=== PATIENT | female | born 1970 | race Caucasian/White ===

== ENCOUNTER → 2016-08-24 | Outpatient (CLI) | payer BC ==
--- NOTE | 2016-08-25 09:07 | MM ---
Reason for exam: screening (asymptomatic). Last mammogram was performed 1 year ago. History: Patient is nulliparous. Family history of premenopausal breast cancer in sister at age 40. Reductions of both breasts, 2005. Took hormonal contraceptives for 5 years beginning at age 19. Physical Findings: A clinical breast exam by your physician is recommended on an annual basis and results should be correlated with mammographic findings. MG Screening Mammo w CAD Bilateral CC and MLO view(s) were taken. Prior study comparison: August 14, 2015, bilateral MG screening mammo w CAD. January 14, 2014, mammogram, performed at [facility]. There are scattered fibroglandular densities. Finding: There are typically benign round calcifications in the left breast. There is no discrete abnormality. ASSESSMENT: Benign, BI-RAD 2 RECOMMENDATION: Routine screening mammogram of both breasts in 1 year.
== END | disposition home or self-care (01) ==
LOC: RADMAMWWP 07:49
PROVIDERS: ATTEND Family Medicine
DX: Z12.31 Encounter for screening mammogram for malignant neoplasm of breast (principal)

== ENCOUNTER 2018-06-24 00:16 | Inpatient (IN) | payer BC ==
[2018-06-24] MEDS ORDERED: HEPARIN SODIUM,PORCINE 5,000 UNIT/ML 1 ML VIAL IV STA (00:24)
[2018-06-24] MEDS ORDERED: SODIUM CHLORIDE 0.9% 1,000 ML IV STA (00:24)
[2018-06-24] MEDS ORDERED: NITROGLYCERIN OINT 1 INCH/GM PACKET TOPICAL STA (00:24)
--- NOTE | 2018-06-24 00:27 | ED ---
General Adult HPI - General Stated complaint: Chest Pain - Related Data Allergies Allergy/AdvReac Type Severity Reaction Status Date / Time No Known Allergies Allergy Verified 06/24/18 00:29 Review of Systems ROS Statement: Those systems with pertinent positive or pertinent negative responses have been documented in the HPI. ROS Other: All systems not noted in ROS Statement are negative. Course Vital Signs 06/24/18 06/24/18 06/24/18 00:17 00:30 00:45 Temperature 97.5 F L Pulse Rate 53 L 59 L 55 L Respiratory 16 18 20 Rate Blood Pressure 115/74 120/75 107/72 O2 Sat by Pulse 94 L 96 96 Oximetry Medical Decision Making - Medical Decision Making Dictation was produced using [employer] dictation software. please excuse any grammatical, word or spelling errors. Chief Complaint: 47-year-old female presents with chief complaint of chest pain. History of Present Illness: Patient is a 47-year-old female brought in by EMS for chest pain. Prehospital EKG showed findings of ST segment elevation MN. Patient has no cardiac history. She has however reports strong family history. Patient reports that her symptoms began this afternoon. One hour prior to arrival patient's symptoms acutely worsen. She does report diaphoresis, nausea and radiation of pain to the shoulders and jaw. Patient denies any neurologic deficit. The ROS documented in this emergency department record has been reviewed and confirmed by me. Those systems with pertinent positive or negative responses have been documented in the HPI. All other systems are other negative and/or noncontributory. PHYSICAL EXAM: General Impression: Alert and oriented x3, diaphoretic, acute distress secondary to pain HEENT: Normocephalic atraumatic, extra-ocular movements intact, pupils equal and reactive to light bilaterally, mucous membranes moist. Cardiovascular: Heart regular rate and rhythm, S1&S2 audible, no murmurs, rubs or gallops Chest: Lungs clear to auscultation bilaterally, no rhonchi, no wheeze, no rales Abdomen: Bowel sounds present, abdomen soft, non-tender, non-distended, no organomegaly Musculoskeletal: Pulses present and equal in all extremities, no peripheral edema Motor: Power 5/5 bilaterally, no focal deficits noted Neurological: CN II-XII grossly intact, no focal motor or sensory deficits noted Skin: Intact with no visualized rashes Psych: Normal affect and mood ED course:-year-old female presents with clinical presentation consistent with STEMI. Prehospital EKG showed ST elevations in the high lateral leads with reciprocal changes in the inferior leads. Patient given aspirin by prehospital providers. She is also given nitroglycerin. STEMI paged upon patient arrival. Discussed patient case with Dr. Mayo. Patient given heparin bolus and started on heparin drip. Patient disposition to laboratory technologist for cardiac catheterization. EKG interpretation: Ventricular rate 57, MA interval 162, QRS 74, QTC 422. No MA prolongation, no QTC prolongation, consistent with ST segment elevation MN. - Lab Data Result diagrams: 06/24/18 00:30 06/24/18 00:30 Lab Results 06/24/18 06/24/18 06/24/18 Range/Units 00:30 00:30 00:30 WBC 13.6 H (3.8-10.6) k/uL RBC 5.05 (3.80-5.40) m/uL Hgb 14.6 (11.4-16.0) gm/dL Hct 45.0 (34.0-46.0) % MCV 89.1 (80.0-100.0) fL MCH 28.9 (25.0-35.0) pg MCHC 32.4 (31.0-37.0) g/dL RDW 13.9 (11.5-15.5) % Plt Count 187 (150-450) k/uL Sodium 138 (137-145) mmol/L Potassium 4.5 (3.5-5.1) mmol/L Chloride 107 (98-107) mmol/L Carbon Dioxide 24 (22-30) mmol/L Anion Gap 7 mmol/L BUN 16 (7-17) mg/dL Creatinine 0.61 (0.52-1.04) mg/dL Est GFR (CKD-EPI)AfAm >90 (>60 ml/min/1.73 sqM) Est GFR (CKD-EPI)NonAf >90 (>60 ml/min/1.73 sqM) Glucose 139 H (74-99) mg/dL POC Glucose (mg/dL) 134 H (75-99) mg/dL POC Glu Paint Tinter ID Larry Schafer Calcium 9.4 (8.4-10.2) mg/dL Total Bilirubin 0.3 (0.2-1.3) mg/dL AST 21 (14-36) U/L ALT 31 (9-52) U/L Alkaline Phosphatase 54 (38-126) U/L Total Creatine Kinase (30-135) U/L Total Protein 7.1 (6.3-8.2) g/dL Albumin 4.1 (3.5-5.0) g/dL 06/24/18 Range/Units 00:30 WBC (3.8-10.6) k/uL RBC (3.80-5.40) m/uL Hgb (11.4-16.0) gm/dL Hct (34.0-46.0) % MCV (80.0-100.0) fL MCH (25.0-35.0) pg MCHC (31.0-37.0) g/dL RDW (11.5-15.5) % Plt Count (150-450) k/uL Sodium (137-145) mmol/L Potassium (3.5-5.1) mmol/L Chloride (98-107) mmol/L Carbon Dioxide (22-30) mmol/L Anion Gap mmol/L BUN (7-17) mg/dL Creatinine (0.52-1.04) mg/dL Est GFR (CKD-EPI)AfAm (>60 ml/min/1.73 sqM) Est GFR (CKD-EPI)NonAf (>60 ml/min/1.73 sqM) Glucose (74-99) mg/dL POC Glucose (mg/dL) (75-99) mg/dL POC Glu Paint Tinter ID Calcium (8.4-10.2) mg/dL Total Bilirubin (0.2-1.3) mg/dL AST (14-36) U/L ALT (9-52) U/L Alkaline Phosphatase (38-126) U/L Total Creatine Kinase 49 (30-135) U/L Total Protein (6.3-8.2) g/dL Albumin (3.5-5.0) g/dL Disposition Clinical Impression: ST elevation myocardial infarction (STEMI) Disposition: ADMITTED IP TO THIS HOSP Condition: Critical Referrals: Juan Carlos Bliss MD [Primary Care Provider] - 1-2 days Decision Time: 01:12
[2018-06-24] MEDS ORDERED: HEPARIN SOD,PORK IN 0.45% NACL 25,000 UNIT in 0.45% NACL 1 250ML.BAG IV SCH (00:30)
[2018-06-24 00:41] LABS: Glucose,Whole Blood 134 mg/dL (75-99)
[2018-06-24 00:46] LABS: HGB 14.6 gm/dL (11.4-16.0); MCH 28.9 pg (25.0-35.0); MCHC 32.4 g/dL (31.0-37.0); MCV 89.1 fL (80.0-100.0); Mean Platelet Volume 7.2; Platelet Count 187 k/uL (150-450); RBC 5.05 m/uL (3.80-5.40); RDW 13.9 % (11.5-15.5); WBC 13.6 k/uL (3.8-10.6)
[2018-06-24 00:50] LABS: ALT 31 U/L (9-52); AST 21 U/L (14-36); Albumin 4.1 g/dL (3.5-5.0); Alkaline Phosphatase 54 U/L (38-126); Anion Gap 7 mmol/L; Blood Urea Nitrogen 16 mg/dL (7-17); Calcium 9.4 mg/dL (8.4-10.2); Carbon Dioxide 24 mmol/L (22-30); Chloride 107 mmol/L (98-107); Glucose 139 mg/dL (74-99); Potassium 4.5 mmol/L (3.5-5.1); Sodium 138 mmol/L (137-145); Total Bilirubin 0.3 mg/dL (0.2-1.3); Total Protein 7.1 g/dL (6.3-8.2)
[2018-06-24] MEDS ORDERED: LIDOCAINE 1% INJ 10MG/ML (20 ML MDV) ONE ×3 (01:02→13:34)
[2018-06-24] MEDS ORDERED: fentaNYL (PF) 50 MCG/ML 2 ML AMP ONE (01:02)
--- NOTE | 2018-06-24 01:04 | XR ---
EXAMINATION TYPE: XR chest 1V DATE OF EXAM: 06/24/2018 COMPARISON: NONE HISTORY: Chest pain TECHNIQUE: Single frontal view of the chest is obtained. FINDINGS: There is no heart failure nor confluent pneumonic infiltrate. Costophrenic angles are manuel r. There is slight coarsening of the lung markings. There is no pleural effusion. IMPRESSION: Minimal fibrotic changes. Normal heart. No heart failure.
[2018-06-24] MEDS ORDERED: IV FLUID CONTINUATION 950 ML IV ONE ×2 (01:05→08:05)
[2018-06-24] MEDS ORDERED: NALOXONE 0.4 MG/ML 1 ML VIAL IV PRN ×3 (01:10→01:27)
[2018-06-24] MEDS ORDERED: MIDAZOLAM 2 MG/2 ML VIAL IVP ONE ×2 (01:14→13:51)
[2018-06-24 01:16] LABS: Eosinophils # (M) 0.68 k/uL (0-0.7); Lymphocytes # (M) 4.76 k/uL (1.0-4.8); Monocytes # (M) 0.27 k/uL (0-1.0); Neutrophils # (M) 7.89 k/uL (1.3-7.7); Neutrophils % (M) 58 %; Nucleated Red Blood Cells 0 /100 WBC (0-0); Total Cells Counted 100
[2018-06-24] MEDS ORDERED: LIDOCAINE 1% INJ 10MG/ML (20 ML MDV) SQ ONE ×2 (01:16→13:51)
[2018-06-24 01:17] LABS: Creatine Kinase MB 0.5 ng/mL (0.0-2.4)
[2018-06-24] MEDS: fentaNYL (PF) 50 MCG/ML 2 ML AMP IVP ONE ×2 (01:20→01:39)
[2018-06-24 01:24] LABS: Troponin I 0.037 ng/mL (0.000-0.034)
[2018-06-24] MEDS ORDERED: BIVALIRUDIN BOLUS 250 MG/50 ML IV ONE (01:28)
[2018-06-24] MEDS ORDERED: BIVALIRUDIN 250 MG in SODIUM CHLORIDE 0.9% 50 ML IV ONE ×2 (01:29→02:22)
[2018-06-24] MEDS: NITROGLYCERIN 1000MCG/10ML SYRINGE INTRACORON ONE ×2 (01:40→02:27)
[2018-06-24] MEDS ORDERED: TICAGRELOR 90 MG TAB PO ONE (01:41)
[2018-06-24] MEDS ORDERED: TICAGRELOR 90 MG TAB ONE (01:41)
[2018-06-24] MEDS ORDERED: IOPAMIDOL-370 125ML BTL INJ ONE ×3 (01:54→14:05)
[2018-06-24] MEDS ORDERED: HYDROmorphone 2 MG/ML 1 ML SYRINGE IVP ONE (02:08)
[2018-06-24] MEDS ORDERED: IOPAMIDOL-370 100ML BTL INJ ONE (02:35)
[2018-06-24] MEDS ORDERED: MAG HYDROX/AL HYDROX/SIMETH 30 ML CUP PO PRN ×2 (02:40→08:55)
[2018-06-24] MEDS ORDERED: RX INFO: IV CONTRAST WAS GIVEN 1 EACH MISC MISCELLANE PRN ×3 (02:40→14:09)
[2018-06-24] MEDS ORDERED: ATROPINE SULFATE 0.1 MG/ML 10ML SYRINGE IV PRN ×2 (02:40→08:55)
[2018-06-24] MEDS ORDERED: ZOLPIDEM 5 MG TAB PO PRN ×2 (02:40→08:55)
[2018-06-24] MEDS ORDERED: SODIUM CHLORIDE 0.9% 1,000 ML IV SCH ×3 (02:45→14:15)
--- NOTE | 2018-06-24 02:48 | P.CRDCN ---
History of Present Illness Consult date: 06/24/18 Chief complaint: Chest pain History of present illness: This is a pleasant 47-year-old female patient with prior history of smoking and very significant family history of coronary artery disease who presented to the emergency room complaining of chest discomfort. The patient was in her usual state of health until earlier today when she started experiencing discomfort in the chest as a pressure across her chest with radiation to the lower neck as well as to the jaw. No associated symptoms of shortness of breath. No dizziness or lightheadedness. And no syncope. In the ER, the EKG showed sinus rhythm with very subtle ST segment elevation in the anterolateral leads. Because of that and because of the ongoing chest discomfort an emergent heart catheterization was advised. It did show severe disease involving the mid LAD by the bifurcation of a large diagonal branch with a very complex lesion. The patient underwent successful stenting of both the LAD and diagonal with a good angiographic results by the end and without any complication with ERICK 3 flow. By the end of the procedure, the patient was chest pain-free. The door to balloon was 81 minutes. The procedure was performed from the right groin. In terms of past medical history, the patient does not have diabetes or hypertension or dyslipidemia. She is to smoke but she quit smoking about 3 years ago. She does have a very significant family history of coronary artery disease with her parents as well as her brother who was diagnosed with coronary artery disease exactly at her age at 47-year-old. Past Medical History Past Medical History: No Reported History History of Any Multi-Drug Resistant Organisms: None Reported Past Surgical History: No Surgical Hx Reported Past Psychological History: Depression Smoking Status: Former smoker Past Alcohol Use History: None Reported Past Drug Use History: None Reported Medications and Allergies Allergies Allergy/AdvReac Type Severity Reaction Status Date / Time No Known Allergies Allergy Verified 06/24/18 00:29 Physical Exam Vitals: Vital Signs Temp Pulse Resp BP Pulse Ox 06/24/18 00:45 55 L 20 107/72 96 06/24/18 00:30 59 L 18 120/75 96 06/24/18 00:17 97.5 F L 53 L 16 115/74 94 L Intake and Output 06/23/18 06/23/18 06/24/18 14:59 22:59 06:59 Intake Total 450 Balance 450 Intake: IV 450 Other: Weight 90.718 kg - Constitutional General appearance: no acute distress - Respiratory Respiratory: bilateral: CTA - Cardiovascular Rhythm: regular Heart sounds: normal: S1, S2 Results 06/24/18 00:30 06/24/18 00:30 Cardiac Enzymes 06/24/18 06/24/18 Range/Units 00:30 00:30 AST 21 (14-36) U/L CK-MB (CK-2) 0.5 (0.0-2.4) ng/mL Troponin I 0.037 H* (0.000-0.034) ng/mL CBC 06/24/18 Range/Units 00:30 WBC 13.6 H (3.8-10.6) k/uL RBC 5.05 (3.80-5.40) m/uL Hgb 14.6 (11.4-16.0) gm/dL Hct 45.0 (34.0-46.0) % Plt Count 187 (150-450) k/uL Comprehensive Metabolic Panel 06/24/18 Range/Units 00:30 Sodium 138 (137-145) mmol/L Potassium 4.5 (3.5-5.1) mmol/L Chloride 107 (98-107) mmol/L Carbon Dioxide 24 (22-30) mmol/L BUN 16 (7-17) mg/dL Creatinine 0.61 (0.52-1.04) mg/dL Glucose 139 H (74-99) mg/dL Calcium 9.4 (8.4-10.2) mg/dL AST 21 (14-36) U/L ALT 31 (9-52) U/L Alkaline Phosphatase 54 (38-126) U/L Total Protein 7.1 (6.3-8.2) g/dL Albumin 4.1 (3.5-5.0) g/dL Current Medications Generic Name Dose Route Start Last Admin Trade Name Freq PRN Reason Stop Dose Admin Al Hydroxide/Mg Hydroxide 30 ml 06/24/18 02:40 Maalox PO Q4HR PRN Heartburn Aspirin 81 mg 06/24/18 09:00 Aspirin PO DAILY MICK Atorvastatin Calcium 80 mg 06/24/18 21:00 Lipitor PO HS MICK Atropine Sulfate 0.5 mg 06/24/18 02:40 Atropine IV ONCE PRN Symptomatic Bradycardia Heparin Sodium/Sodium Chloride 250 mls @ 9.97 mls/hr 06/24/18 00:30 06/24/18 00:35 25,000 unit/ Sodium Chloride IV 11 units/kg/hr .Q24H MICK 9.97 mls/hr Administration Protocol 11 UNITS/KG/HR Sodium Chloride 1,000 mls @ 100 mls/hr 06/24/18 00:24 06/24/18 00:32 Saline 0.9% IV 06/24/18 10:23 100 mls/hr .Q10H STA Administration Sodium Chloride 1,000 mls @ 100 mls/hr 06/24/18 02:45 Saline 0.9% IV 06/24/18 08:46 .Q10H IMCK Miscellaneous Information 1 each 06/24/18 02:40 Rx Info: Iv Contrast Was Given MISCELLANE 06/26/18 02:40 DAILY PRN Per Protocol Naloxone HCl 0.2 mg 06/24/18 01:18 Narcan IV Q2M PRN Opioid Reversal Nitroglycerin 0.4 mg 06/24/18 02:40 Nitrostat SUBLINGUAL Q5M PRN Chest Pain Zolpidem Tartrate 5 mg 06/24/18 02:40 Ambien PO HS PRN Insomnia Intake and Output 06/23/18 06/23/18 06/24/18 14:59 22:59 06:59 Intake Total 450 Balance 450 Intake: IV 450 Other: Weight 90.718 kg Patient Weight 06/24/18 06:59 Weight 90.718 kg 06/24/18 00:30 06/24/18 00:30 Assessment and Plan Assessment: Assessment #[address] segment elevation myocardial infarction #2 significant family history of coronary artery disease #3 prior history of smoking Plan #1 the patient is status post PCI and stenting of the LAD as well as first diagonal branch #2 dual antiplatelet therapy #3 high intensity statin #4 hold on beta jamila at this point in view of the baseline bradycardia #5 an echocardiogram to assess the LV function #6 follow-up with the patient. Thank you for allowing us participate in her care and we'll continue following up with the patient
[2018-06-24 03:01] LABS: Glucose,Whole Blood 114 mg/dL (75-99)
[2018-06-24] MEDS: NITROGLYCERIN SL TABS 0.4 MG TAB SUBLINGUAL PRN ×2 (06:29→06:35)
[2018-06-24] MEDS ORDERED: HYDROmorphone 0.5 MG/0.5 ML SYRINGE IVP STA (06:45)
[2018-06-24] MEDS: NITROGLYCERIN-D5W PMX 50 MG in DEXTROSE/WATER 1 250ML.BAG IV SCH (07:10)
[2018-06-24] MEDS ORDERED: IV FLUID CONTINUATION 1,000 ML IV ONE (08:05)
[2018-06-24] MEDS ORDERED: LIDOCAINE 1% (PF) 10MG/ML VIAL SQ ONE (08:06)
[2018-06-24] MEDS ORDERED: HEPARIN SODIUM 1,000 UN/ML (10ML VL) ONE ×2 (08:06→13:36)
[2018-06-24] MEDS: HYDROmorphone 2 MG/ML 1 ML SYRINGE IVP ONE ×2 (08:10→08:32)
[2018-06-24] MEDS: TIROFIBAN BOLUS 12.5MG/250 ML BAG IV ONE ×2 (08:14→08:49)
[2018-06-24] MEDS ORDERED: TIROFIBAN 12.5MG-250ML NS 250 ML IV ONE (08:15)
[2018-06-24] MEDS: niCARdipine Syringe (1,000 mcg/10 mL) INTRACORON ONE ×2 (08:23→08:38)
[2018-06-24] MEDS ORDERED: NITROGLYCERIN 1000MCG/10ML SYRINGE INTRACORON ONE (08:39)
[2018-06-24] MEDS ORDERED: PRASUGREL 10 MG TAB ONE (08:42)
[2018-06-24] MEDS ORDERED: PRASUGREL 10 MG TAB PO ONE (08:46)
[2018-06-24] MEDS ORDERED: NITROGLYCERIN SL TABS 0.4 MG TAB SUBLINGUAL PRN (08:55)
[2018-06-24] MEDS ORDERED: ASPIRIN 81 MG PO SCH (09:00)
[2018-06-24 09:25] LABS: HCT 40.8 % (34.0-46.0); HGB 13.5 gm/dL (11.4-16.0); MCH 30.1 pg (25.0-35.0); MCV 91.1 fL (80.0-100.0); Platelet Count 315 k/uL (150-450); RBC 4.47 m/uL (3.80-5.40); RDW 13.9 % (11.5-15.5); WBC 20.8 k/uL (3.8-10.6)
[2018-06-24 09:35] LABS: Anion Gap 6 mmol/L; Blood Urea Nitrogen 13 mg/dL (7-17); Calcium 8.5 mg/dL (8.4-10.2); Carbon Dioxide 22 mmol/L (22-30); Chloride 110 mmol/L (98-107); Glucose 120 mg/dL (74-99); Potassium 4.2 mmol/L (3.5-5.1); Sodium 138 mmol/L (137-145)
--- NOTE | 2018-06-24 09:41 | CC ---
CARDIAC CATHETERIZATION REPORT CARDIAC CATHETERIZATION AND PERCUTANEOUS CORONARY INTERVENTION: DATE OF SERVICE: June 24, 2018 PERFORMING PHYSICIAN: Hector Houser M.D., agitator operator. PROCEDURE PERFORMED: 1. Selective right and left coronary angiogram. 2. Successful stenting of the left anterior descending artery using a 2.75 x 28 mm Xience drug-eluting stent with good angiographic results. 3. Successful stenting of the first diagonal branch of the LAD using 2.75 x 15 mm Xience drug-eluting stent with good angiographic results. 4. Left heart catheterization. INDICATION: This is a pleasant 47-year-old female patient with no significant past medical history, but prior history of smoking and very significant family history of coronary artery disease, who presented to the emergency room with chest discomfort and was diagnosed with acute anterolateral ST-elevation myocardial infarction. Because of that, a heart catheterization emergently was advised. APPROACH: Right common femoral artery. COMPLICATION: None. LEVEL OF SEDATION: Moderate with sedation length of 83 minutes. the balloon was 81 minutes. PROCEDURE DESCRIPTION: After obtaining an informed consent, the patient was brought to cardiac labor contract analyst. The right common femoral artery was cannulated using micropuncture technique and a micropuncture wire passed easily. Then I did place a 6-Nepali sheath in the right radial artery in the right common femoral artery. At that point, I did selective right and left coronary angiogram. Right coronary angiogram was performed using JR4 catheter and left coronary angiogram was performed using JL4 guide. I did intervene on both the LAD and diagonal branch of the LAD. Please see a separate paragraph for that. After that I did left heart catheterization using 6-Nepali pigtail catheter. The procedure was completed without any complication. SELECTIVE CORONARY ANGIOGRAM: 1. The right coronary artery is a large caliber vessel and it is a dominant vessel. The proximal RCA appeared to be angiographically normal. The mid RCA has mild disease only and RCA distally has mild disease only and bifurcates into PDA and PLV branches, both appeared to be angiographically normal. 2. The left main is angiographically normal. It bifurcates into left circumflex and left anterior descending artery. 3. The left circumflex is a large caliber vessel. It is a nondominant vessel. The proximal left circumflex appeared to be normal with the mid circumflex is normal and gives rise into a large diagonal branch which appeared to be angiographically normal. The left circumflex continues after that as a moderate caliber vessel in the AV groove. 4. The LAD: The proximal LAD has mild disease only. The mid LAD just distal to the bifurcation of a large diagonal branch appeared to have a lesion in the range of 80%-90%. The LAD distally appeared to be normal. The first diagonal branch is a large diagonal branch which has an ostial lesion in the range of 80-90 percent as well. HEMODYNAMICS: The left ventricular end-diastolic pressure was 8-12 mmHg without gradient across aortic valve. PCI OF THE LAD AND DIAGONAL: Anticoagulation was initiated using Angiomax. The left main was engaged using JL4 guiding catheter. I did wire both the LAD as well as 1st diagonal branch of the LAD. The LAD was wired using a run-through wire and the first diagonal branch was wired using a whisper wire. After that, I did balloon angioplasty of both the LAD and diagonal. Both were ballooned using 2.5 mm balloon. After that, I deployed in the LAD, a 2.75 x 28 mm Xience drug-eluting stent where the stent was positioned under fluoroscopy guidance and deployed just by the bifurcation of the first diagonal branch, proximally. The stent was deployed under 14 atmospheres for 30 seconds. The following angiogram showed good angiographic results. After that, I did pull the wire from the diagonal branch, 1st diagonal branch of the LAD and I rewired the diagonal again through the stent struts of the LAD. I did, after that, I deployed the stent in the diagonal using 2.75 x 15 mm Xience drug-eluting stent where the stent again was positioned under fluoroscopy guidance and deployed under its nominal pressure. I decided after that to post dilate the LAD. I did pull the wire then I did post dilate the stent in the LAD using 3 0 x 15 mm NC balloon which was inflated under 16 atmospheres for 20 seconds. The following and the final angiogram showed good angiographic results in both the LAD and diagonal. The procedure was completed without any complication. CONCLUSION: 1. Acute anterolateral ST-elevation myocardial infarction. 2. Severe disease involving the mid LAD by the bifurcation of a large diagonal branch with a complex lesion. 3. Successful stenting of both the mid LAD and first diagonal branch using 2 drug- eluting stents with good angiographic results and without any complication. POSTPROCEDURE MANAGEMENT: 1. Dual anti-platelet therapy. 2. Risk factor modifications. 3. Follow up with the patient. MMODL / IJN: [id number] /
--- NOTE | 2018-06-24 09:49 | LTR ---
DATE OF SERVICE: June 24, [address] Bliss: Ms. Tori Su presented to the emergency room at [facility] with chest discomfort and was diagnosed with acute anterior ST-elevation myocardial infarction. She underwent an emergent heart catheterization and stenting of the LAD as well as 1st diagonal branch of the LAD. The procedure was completed with good angiographic results by the end and without any complication. Thank you for allowing us to participate in her care and please do not hesitate to call if you have any questions or concerns. Sincerely, MMODL / IJN: [id number] /
--- NOTE | 2018-06-24 10:25 | P.HPIM ---
History of Present Illness Chief complaint Chest pain History of present illness The patient is a 47-year-old female who has history family history of heart disease and also history of smoking and hypercholesterolemia who presented yesterday evening with left chest pain. The pain was upper chest which radiated to the neck and shoulders and was somewhat intermittent earlier in the day but later yesterday evening it became more severe and EMS was called to bring patient to the emergency room here at [facility]. Patient subsequently was taken to the cardiac Credit Collector and has undergone emergent stenting of the left anterior descending along with the first diagonal branch of the LAD. Patient is presently in the intensive care unit. She is not having at this point further definitive chest pain. No nausea, vomiting or shortness of breath at this time. Past medical history The patient has hyperlipidemia for which she has been recently working on lifestyle changes. Restless leg syndrome Positive smoking history Lumbago with right-sided sciatica Obesity Chronic depression Insomnia ADD No history of myocardial infarction, diabetes, hypertension or stroke. Medications Multiple vitamin daily Cymbalta 60 mg daily Xanax 0.5 mg at at bedtime Acetaminophen twice a day as needed for pain. No known ALLERGIES Review of systems Negative for headache or visual disturbances. No nausea or vomiting. No abdominal pain. No urinary or bowel symptoms. No hematochezia. No edema. No new neurological changes. Chest pain as mentioned in history of present illness. Family history History of stroke with her mother along with coronary artery disease with her mother, brother and father. Father and brother have hypertension. Mother has diabetes. Sister has history of breast cancer. Social history Positive for smoking history. No history of excessive alcohol usage. Physical examination Patient presently in bed in the intensive care unit. Blood pressure 130/72 with a pulse of 65 and respirations 15. She is 96% saturated on 2 L and is afebrile. Head and neck exam unremarkable. Extraocular movements intact. Neck supple. No adenopathy or thyromegaly or bruits detected. Breast and pelvic exam deferred. Lungs clear to auscultation. Heart tones were regular without murmurs. Abdomen is soft and nontender without rebound, guarding or masses. No edema. Neurologically she is alert and oriented. No cranial nerves peripheral nerve deficits noted. Laboratory White count is elevated at 13 and 20,000. Hemoglobin stable at 13.5. No blood sugar somewhat borderline at 120. Sodium 138 with potassium 4.2 and a CO2 content of 22. BUN was 16 with a creatinine 0.53 GFR greater than 90. CK was normal at 49 and troponin elevated at 0.037. Albumin 4.1. EKG shows ST segment elevation laterally. T-wave inversions inferiorly. Consistent with acute myocardial infarction. Chest x-ray showed minimal fibrotic changes but no acute changes noted. Impression Acute ST segment elevated myocardial infarction. Status post angioplasty and stenting of the LAD and first marginal branch on an emergent basis. Hyperlipidemia Positive family history for coronary artery disease Positive smoking history Other past medical history as stated above. Plans Patient has been seen and evaluated by cardiology and has undergone intervention as described above. She is presently on atorvastatin and antiplatelet agents. She remains in the intensive care unit at this time. We'll await further recommendations from cardiology. Discussed with patient the need for risk factor modification once again with weight loss, smoking cessation and treatment of cholesterol. Statin medication. Past Medical History Past Medical History: No Reported History History of Any Multi-Drug Resistant Organisms: None Reported Past Surgical History: No Surgical Hx Reported Past Psychological History: Depression Smoking Status: Former smoker Past Alcohol Use History: None Reported Past Drug Use History: None Reported Medications and Allergies Home Medications Medication Instructions Recorded Confirmed Type ALPRAZolam [Xanax] 0.5 mg PO HS 06/24/18 06/24/18 History Acetaminophen [Tylenol 8 Hour] 650 mg PO BID 06/24/18 06/24/18 History DULoxetine HCL [Cymbalta] 60 mg PO DAILY 06/24/18 06/24/18 History Multivitamins, Thera [Multivitamin 1 tab PO DAILY 06/24/18 06/24/18 History (formulary)] Allergies Allergy/AdvReac Type Severity Reaction Status Date / Time No Known Allergies Allergy Verified 06/24/18 09:42 Physical Exam Vitals: Vital Signs Temp Pulse Resp BP Pulse Ox 06/24/18 06:00 65 15 134/75 96 06/24/18 05:30 64 13 97 06/24/18 05:00 66 15 130/72 96 06/24/18 04:30 62 14 129/74 96 06/24/18 04:00 97.8 F 64 15 129/74 95 06/24/18 03:40 58 L 13 96 06/24/18 03:20 60 12 128/72 95 06/24/18 01:00 107/72 06/24/18 00:45 55 L 20 107/72 96 06/24/18 00:40 120/75 95 06/24/18 00:30 59 L 18 120/75 96 06/24/18 00:28 115/74 06/24/18 00:17 97.5 F L 53 L 16 115/74 94 L Intake and Output 06/23/18 06/24/18 06/24/18 22:59 06:59 14:59 Intake Total 750 425.650 Output Total 0 600 Balance 750 -174.350 Intake: IV 750 401 Sodium Chloride 0.9% 1, 300 200 000 ml @ 100 mls/hr IV . Q10H MICK Rx#:[id number] Intake, IV Titration 24.650 Amount Nitroglycerin-D5w Pmx 50 24.650 mg In Dextrose/Water 1 250ml.bag @ 5 MCG/MIN 1.5 mls/hr IV .Q24H MICK Rx#: [id number] Output: Urine 0 600 Other: Voiding Method Bedpan Weight 90.718 kg Results CBC & Chem 7: 06/24/18 09:13 06/24/18 09:13 Labs: Abnormal Lab Results - Last 24 Hours (Table) 06/24/18 06/24/18 06/24/18 Range/Units 00:30 00:30 00:30 WBC 13.6 H (3.8-10.6) k/uL Neutrophils # (Manual) 7.89 H (1.3-7.7) k/uL Chloride (98-107) mmol/L Glucose 139 H (74-99) mg/dL POC Glucose (mg/dL) 134 H (75-99) mg/dL Troponin I (0.000-0.034) ng/mL 06/24/18 06/24/18 06/24/18 Range/Units 00:30 02:58 09:13 WBC 20.8 H (3.8-10.6) k/uL Neutrophils # (Manual) (1.3-7.7) k/uL Chloride (98-107) mmol/L Glucose (74-99) mg/dL POC Glucose (mg/dL) 114 H (75-99) mg/dL Troponin I 0.037 H* (0.000-0.034) ng/mL 06/24/18 Range/Units 09:13 WBC (3.8-10.6) k/uL Neutrophils # (Manual) (1.3-7.7) k/uL Chloride 110 H (98-107) mmol/L Glucose 120 H (74-99) mg/dL POC Glucose (mg/dL) (75-99) mg/dL Troponin I (0.000-0.034) ng/mL
--- NOTE | 2018-06-24 10:32 | PTCA ---
PERCUTANEOUSTRANS CORORONARY ANGIOGRAPHY DATE OF SERVICE: June 24, 2018 PERFORMING PHYSICIAN: Hector Houser MD, skimmer reverberatory. PROCEDURE PERFORMED: 1. Selective left coronary angiogram. 2. An aspiration thrombectomy from the mid LAD. 3. Successful stenting of the mid LAD using 3.0 x 28 mm Xience drug-eluting stent with good angiographic results and reduction of stenosis from 100% to 0%. 4. Intravascular ultrasound IVUS of the LAD. INDICATION: This is a pleasant 47-year-old female patient who was admitted to the hospital yesterday with acute anterolateral ST-elevation myocardial infarction and underwent stenting of the LAD and diagonal. Earlier today she did develop chest discomfort and EKG changes concerning for ST elevation anteriorly and because of that we decided to take her to the medical laboratory technical officer emergently. APPROACH: Left common femoral artery. COMPLICATION: None. LEVEL OF SEDATION: Moderate with sedation length of 43 minutes. PROCEDURE DESCRIPTION: After obtaining an informed consent, the patient was brought to the cardiac medical laboratory technical officer. The left common femoral artery was cannulated using micropuncture technique, the micropuncture wire passed easily. Then I placed a 6-Upper Sorbian 11 cm sheath in the left common femoral artery. I did selective left coronary angiogram using an XP35 LAD guide and that revealed acute stent thrombosis. At that point, I decided to intervene on the LAD. PCI OF THE LAD: Anticoagulation was initiated using heparin as well as 2B3 inhibitor with Aggrastat with double bolus and drip. Subsequently I did cross the LAD using a BMW wire. I did aspiration thrombectomy and I was able to extract a large amount of red thrombus from the LAD. I did stenting of the LAD using 3.0 x 28 mm Xience drug-eluting stent where the stent was positioned under fluoroscopy guidance and deployed under 14 atmospheres for 30 seconds and after that I post dilated the stent using 3.25 mm NC balloon. The balloon was inflated under 18 atmospheres for 20 minutes. After that, I did an intravascular ultrasound IVUS of the LAD, which showed that the stent is well apposed and well deployed. Because of that, I decided to stop. I was able to achieve a ERICK-3 flow. CONCLUSION: 1. Acute stent thrombosis. 2. Successful stenting of the mid LAD using 3.0 x 28 mm Xience drug-eluting stent with good angiographic results. POSTPROCEDURE MANAGEMENT: 1. Dual anti-platelet therapy. 2. 2B3 inhibitor infusion for 18 hours. 3. Follow up with the patient. MMODL / IJN: [id number] /
[2018-06-24] MEDS: HYDROmorphone 2 MG/ML 1 ML SYRINGE IVP PRN ×3 (11:44→22:12)
[2018-06-24] MEDS: ALPRAZolam 0.25 MG TAB PO PRN ×2 (11:45→20:15)
[2018-06-24] MEDS ORDERED: VERAPAMIL 2.5 MG/ML 2 ML AMP ONE (13:34)
[2018-06-24] MEDS: VERAPAMIL SYRINGE (5 MG/10 ML) INTRAARTER ONE ×2 (13:53→14:00)
[2018-06-24] MEDS ORDERED: IV FLUID CONTINUATION 400 ML IV ONE (13:53)
[2018-06-24] MEDS ORDERED: FUROSEMIDE 10 MG/ML 4 ML VIAL ONE (13:58)
[2018-06-24] MEDS ORDERED: FUROSEMIDE 10 MG/ML 4 ML VIAL IV ONE (13:59)
[2018-06-24] MEDS: ASPIRIN 325 MG TAB PO SCH (15:41)
[2018-06-24] MEDS: TIROFIBAN 12.5MG-250ML NS 250 ML IV SCH (15:45)
[2018-06-24] MEDS: ATORVASTATIN 80 MG TAB PO SCH (20:15)
--- NOTE | 2018-06-24 20:19 | CC ---
CARDIAC CATHETERIZATION REPORT DATE OF SERVICE: June 24, 2018 PERFORMING PHYSICIAN: Hector Houser MD, hospital coder. PROCEDURE PERFORMED: Selective left coronary angiogram. INDICATION: This is a pleasant 47-year-old female patient who was admitted to the hospital early this morning with acute anterolateral ST-elevation myocardial infarction and underwent stenting of the LAD and complicated by acute stent thrombosis. She underwent successful stenting of the LAD again. She continues to have chest discomfort and slightly worsening ST-segment elevation in the anterior leads. Because of that, she was brought today to undergo a heart catheterization from right arm approach. COMPLICATION: None. LEVEL OF SEDATION: Moderate with sedation length of 11 minutes. PROCEDURE DESCRIPTION: After obtaining an informed consent, the patient was brought to cardiac lab aide. The right radial artery was cannulated using micropuncture technique and a micropuncture wire passed easily. Then I placed a 6-Albanian sheath in the right radial artery. After that I did give the patient 2 mg of verapamil IA. I did selective left coronary angiogram using JL3.5 guide. The procedure was completed without any complication. SELECTIVE CORONARY ANGIOGRAM: 1. The left main is angiographically normal. It bifurcates into the left circumflex and left anterior descending artery. 2. The left circumflex is a large caliber vessel and it is a nondominant vessel. The left circumflex has mild disease only. 3. The LAD: The proximal LAD is angiographically normal. The mid LAD is stented and the stent is patent. The LAD distally appeared to be angiographically normal. The LAD gives rise into the 1st diagonal, which is occluded, which is in-stent occlusion and the second diag which appeared to be angiographically normal. CONCLUSION: Patent stent in the mid left anterior descending artery. POSTPROCEDURE MANAGEMENT: 1. Continue dual anti-platelet therapy. 2. Continue 2b3a inhibitor with Aggrastat. 3. Follow up with the patient. MMODL / IJN: [id number] /
[2018-06-25] MEDS: HYDROmorphone 2 MG/ML 1 ML SYRINGE IVP PRN ×4 (01:15→13:25)
[2018-06-25 01:57] LABS: Amorphous Sediment,Urine Occasional /hpf; Appearance,Urine Turbid (Clear); Bilirubin,Urine Negative (Negative); Blood,Urine Trace (Negative); Color,Urine Yellow; Glucose,Urine (UA) Negative (Negative); Ketones,Urine 1+ (Negative); Leukocyte Esterase,Urine Negative (Negative); Nitrite,Urine Negative (Negative); Protein,Urine Trace (Negative); Specific Gravity,Urine 1.028 (1.001-1.035); Urobilinogen,Urine <2.0 mg/dL (<2.0)
[2018-06-25] MEDS: NITROGLYCERIN-D5W PMX 50 MG in DEXTROSE/WATER 1 250ML.BAG IV SCH (02:47)
[2018-06-25 06:19] LABS: Basophils % (A) 0 %; Eosinophils # (A) 0.1 k/uL (0-0.7); Eosinophils % (A) 0 %; HCT 36.1 % (34.0-46.0); HGB 11.6 gm/dL (11.4-16.0); Lymphocytes # (A) 1.4 k/uL (1.0-4.8); Lymphocytes % (A) 7 %; MCH 29.5 pg (25.0-35.0); MCHC 32.1 g/dL (31.0-37.0); MCV 91.9 fL (80.0-100.0); Mean Platelet Volume 6.7; Monocytes # (A) 1.2 k/uL (0-1.0); Monocytes % (A) 5 %; Neutrophils # (A) 19.3 k/uL (1.3-7.7); Neutrophils % (A) 87 %; Platelet Count 313 k/uL (150-450); RBC 3.93 m/uL (3.80-5.40); RDW 13.9 % (11.5-15.5); WBC 22.3 k/uL (3.8-10.6)
[2018-06-25 06:28] LABS: Anion Gap 4 mmol/L; Blood Urea Nitrogen 14 mg/dL (7-17); Calcium 8.6 mg/dL (8.4-10.2); Carbon Dioxide 28 mmol/L (22-30); Chloride 106 mmol/L (98-107); Glucose 123 mg/dL (74-99); Phosphorus 3.3 mg/dL (2.5-4.5); Potassium 4.2 mmol/L (3.5-5.1); Sodium 138 mmol/L (137-145)
--- NOTE | 2018-06-25 07:50 | P.PN ---
Progress Note - Text The patient is a 47-year-old female who presented with chest pain. The patient did have acute ST segment elevated myocardial infarction. Her risk factors include smoking history along with hypercholesterolemia and strong family history. The patient underwent catheterization and emergent stenting of the left anterior descending and first diagonal branch. Patient presently remains in the intensive care unit. She is lying flat in bed this morning. Denies shortness of breath. States her pain is almost completely gone. She rates it as 1. Vital signs reveal a blood pressure 106/69 with a pulse of 91 and respirations 14. She is 91% saturated on 2 L nasal cannula. Lung and heart exam is clear and regular. Abdomen is nontender. No unusual distal edema or calf tenderness. She is alert and oriented without cranial or peripheral nerve deficits. Laboratory White count is 22 with a hemoglobin 11.6 and a platelet count of 313. Slight left shift of 19 Electrolytes were normal with a sodium 138 and potassium 4.2. BUN of 14 with creatinine 0.52 given her GFR greater than 90. Blood sugar was 123. Urinalysis revealed negative leukocyte esterase. Impressions and plans As stated above patient is post myocardial infarction and urgent heart catheterization and stenting. She is doing better this morning. We'll await further cardiac recommendations. She remains on aspirin along with the atorvastatin
[2018-06-25] MEDS: TIROFIBAN 12.5MG-250ML NS 250 ML IV SCH (08:18)
--- NOTE | 2018-06-25 08:36 | P.PN ---
Subjective Progress Note Date: 06/25/18 Principal diagnosis: Acute coronary syndrome This is a pleasant 47-year-old female patient with prior history of smoking and significant family history of coronary artery disease who presented to the emergency room complaining of chest discomfort and EKG finding consistent with acute anterolateral ST segment elevation. Subsequently she was taken emergently to the cardiac equipment operator/laborer where she underwent an emergent heart catheterization and was found to have critical lesion involving the mid LAD by the bifurcation of a good size diagonal branch with a very complex lesion. The patient underwent successful stenting of both the LAD and diuretics with a good angiographic results by the end. The procedure was complicated by acute stent thrombosis where the patient was taken again to the cardiac equipment operator/laborer and was found to have occluded stents in both the LAD and diagonal. I did perform successful stenting of the LAD and also successful aspiration thrombectomy of a large red clot from the LAD with restoring ERICK-3 flow to the LAD. I did performed by the end intravascular ultrasound to assure that the stent this time was well opposed to the wall of the LAD. Subsequently the patient was started on IIb IIIa inhibitors with Aggrastat. Also I did change her oral antiplatelet from Brilinta to Effient. On follow-up with her today, June 252018, she is doing better clinically. The chest discomfort has subsided significantly. She remains hemodynamically stable beside minor sinus tachycardia. Both groins are soft and nontender with mild bruises over the left groin. I am going to continue the current medical regimen including dual antiplatelet therapy. Continue statin. DC Aggrastat. Start the patient on metoprolol at 25 mg by mouth twice a day. Follow-up on the echocardiogram. Follow-up the serial cardiac enzymes to assess the size of myocardium infarction. Objective - Vital Signs Vital signs: Vital Signs Temp 98.5 F 06/25/18 04:00 Pulse 90 06/25/18 08:00 Resp 11 L 06/25/18 08:00 BP 111/71 06/25/18 08:00 Pulse Ox 92 L 06/25/18 08:00 Intake & Output 06/24/18 06/25/18 06/25/18 18:59 06:59 18:59 Intake Total 1990.650 950.05 75 Output Total 2300 1130 40 Balance -309.350 -179.95 35 Weight 90.718 kg 87 kg Intake: IV 1246 900 75 Sodium Chloride 0.9% 1, 1025 75 000 ml @ 100 mls/hr IV . Q10H [facility] Rx#:[id number] Sodium Chloride 0.9% 1, 825 75 000 ml @ 75 mls/hr IV . [id number] [facility] Rx#:[id number] Intake, IV Titration 24.650 50.05 Amount Nitroglycerin-D5w Pmx 50 24.650 50.05 mg In Dextrose/Water 1 250ml.bag @ 5 MCG/MIN 1.5 mls/hr IV .Q24H [facility] Rx#: [id number] Oral 720 Output: Urine 2100 930 40 Emesis 200 200 Other: Voiding Method Indwelling Catheter Indwelling Catheter Indwelling Catheter - Constitutional General appearance: Present: no acute distress - Respiratory Respiratory: bilateral: CTA - Cardiovascular Rhythm: regular Heart sounds: normal: S1, S2 - Labs CBC & Chem 7: 06/25/18 05:29 06/25/18 05:29 Labs: Abnormal Lab Results - Last 24 Hours (Table) 06/24/18 06/24/18 06/25/18 Range/Units 09:13 09:13 01:40 WBC 20.8 H (3.8-10.6) k/uL Neutrophils # (1.3-7.7) k/uL Monocytes # (0-1.0) k/uL Chloride 110 H (98-107) mmol/L Glucose 120 H (74-99) mg/dL Urine Appearance Turbid H (Clear) Urine Protein Trace H (Negative) Urine Ketones 1+ H (Negative) Urine Blood Trace H (Negative) Amorphous Sediment Occasional H (None) /hpf 06/25/18 06/25/18 Range/Units 05:29 05:29 WBC 22.3 H (3.8-10.6) k/uL Neutrophils # 19.3 H (1.3-7.7) k/uL Monocytes # 1.2 H (0-1.0) k/uL Chloride (98-107) mmol/L Glucose 123 H (74-99) mg/dL Urine Appearance (Clear) Urine Protein (Negative) Urine Ketones (Negative) Urine Blood (Negative) Amorphous Sediment (None) /hpf Assessment and Plan Assessment: Assessment #[address] segment elevation myocardial infarction #2 significant family history of coronary artery disease #3 prior history of smoking Plan #1 continue the current medical regimen including dual antiplatelet therapy and high intensity statin #2 start the patient on metoprolol 25 mg by mouth twice a day #3 DC Aggrastat #4 monitor the patient for additional 24 hours in the ICU #5 follow-up in the echocardiogram which was performed earlier #6 check the troponin #7 get the patient up and around #8 follow-up with the patient Thank you for allowing us participate in her care and we will continue following up with her
[2018-06-25] MEDS: PRASUGREL 10 MG TAB PO SCH (09:33)
[2018-06-25] MEDS: METOPROLOL TARTRATE 25 MG TAB PO SCH ×2 (09:33→20:29)
[2018-06-25] MEDS: ASPIRIN 325 MG TAB PO SCH (09:33)
[2018-06-25] MEDS: PANTOPRAZOLE 40 MG/10 ML VIAL IV SCH (09:33)
[2018-06-25] MEDS: ISOSORBIDE MONONITRATE ER 30 MG TAB.ER.24H PO SCH (09:33)
--- NOTE | 2018-06-25 10:17 | ECHOF ---
Referral Reason:stemi MEASUREMENTS -------- HEIGHT: 170.2 cm WEIGHT: 86.6 kg BP: 106/69 RVIDd: 2.8 cm (< 3.3) IVSd: 1.1 cm (0.6 - 1.1) LVIDd: 4.2 cm (3.9 - 5.3) LVPWd: 1.1 cm (0.6 - 1.1) IVSs: 1.4 cm LVIDs: 3.1 cm LVPWs: 1.9 cm LA Diam: 3.4 cm (2.7 - 3.8) LAESV Index (A-L): 20.20 ml/m Ao Diam: 2.8 cm (2.0 - 3.7) AV Cusp: 2.0 cm (1.5 - 2.6) MV EXCURSION: 18.829 mm (> 18.000) MV EF SLOPE: 144 mm/s (70 - 150) EPSS: 0.6 cm MV E Fernando: 0.88 m/s MV DecT: 188 ms MV A Fernando: 0.87 m/s MV E/A Ratio: 1.01 FINDINGS -------- Sinus rhythm. This was a technically adequate study. The left ventricular size is normal. There is borderline concentric left ventricular hypertrophy. Overall left ventricular systolic function is mild-moderately impaired with, an EF between 40 - 45 % . Mid anterior LV wall motion is hypokinetic. Apical anterior LV wall motion is hyperkinetic. Apical lateral LV wall motion is hyperkinetic. Apical inferior LV wall motion is hypokinetic. Apical septum LV wall motion is hypokinetic. The right ventricle is normal in size and function. Normal LA size by volume 22+/-6 ml/m2. The right atrium is normal in size. The aortic valve is trileaflet and appears structurally normal. The mitral valve is normal. The tricuspid valve appears structurally normal. The pulmonic valve was not well visualized. The aortic root size is normal. Normal inferior vena cava with normal inspiratory collapse consistent with estimated right atrial pre ssure of 5 mmHg. There is no pericardial effusion. CONCLUSIONS -------- 1. Sinus rhythm. 2. This was a technically adequate study. 3. The left ventricular size is normal. 4. There is borderline concentric left ventricular hypertrophy. 5. Overall left ventricular systolic function is mild-moderately impaired with, an EF between 40 - 45 %. 6. Mid anterior LV wall motion is hypokinetic. 7. Apical anterior LV wall motion is hyperkinetic. 8. Apical lateral LV wall motion is hyperkinetic. 9. Apical inferior LV wall motion is hypokinetic. 10. Apical septum LV wall motion is hypokinetic. 11. The right ventricle is normal in size and function. 12. Normal LA size by volume 22+/-6 ml/m2. 13. The right atrium is normal in size. 14. The aortic valve is trileaflet and appears structurally normal. 15. The mitral valve is normal. 16. The tricuspid valve appears structurally normal. 17. The pulmonic valve was not well visualized. 18. The aortic root size is normal. 19. Normal inferior vena cava with normal inspiratory collapse consistent with estimated right atrial pressure of 5 mmHg. 20. There is no pericardial effusion. PRESS PULLER: Coleen Syed RDCS
[2018-06-25] MEDS: ONDANSETRON 4 MG/2 ML VIAL IVP PRN (13:25)
[2018-06-25] MEDS: ATORVASTATIN 80 MG TAB PO SCH (20:29)
[2018-06-25] MEDS: HYDROmorphone 1 MG/ML 1 ML SYRINGE IVP PRN (20:29)
[2018-06-26] MEDS: HYDROmorphone 1 MG/ML 1 ML SYRINGE IVP PRN ×2 (00:01→09:14)
[2018-06-26 05:00] LABS: Basophils # (A) 0.1 k/uL (0-0.2); Basophils % (A) 0 %; Eosinophils # (A) 0.1 k/uL (0-0.7); Eosinophils % (A) 1 %; HCT 31.7 % (34.0-46.0); HGB 10.3 gm/dL (11.4-16.0); Lymphocytes % (A) 13 %; MCH 29.7 pg (25.0-35.0); MCHC 32.4 g/dL (31.0-37.0); MCV 91.8 fL (80.0-100.0); Mean Platelet Volume 6.6; Monocytes # (A) 0.8 k/uL (0-1.0); Monocytes % (A) 5 %; Neutrophils # (A) 12.4 k/uL (1.3-7.7); Neutrophils % (A) 80 %; Platelet Count 248 k/uL (150-450); RBC 3.45 m/uL (3.80-5.40); RDW 13.9 % (11.5-15.5); WBC 15.6 k/uL (3.8-10.6)
[2018-06-26 05:05] LABS: Anion Gap 4 mmol/L; Blood Urea Nitrogen 11 mg/dL (7-17); Calcium 8.4 mg/dL (8.4-10.2); Carbon Dioxide 28 mmol/L (22-30); Chloride 104 mmol/L (98-107); Glucose 104 mg/dL (74-99); Phosphorus 1.9 mg/dL (2.5-4.5); Potassium 3.9 mmol/L (3.5-5.1); Sodium 136 mmol/L (137-145)
[2018-06-26] MEDS ORDERED: Phosphorus Replacement Protoco 1 EACH MISC MISCELLANE PRN (05:26)
[2018-06-26] MEDS: POTASSIUM PHOSPHATE 10 MMOL in SODIUM CHLORIDE 0.9% 250 ML IV SCH ×2 (06:30→11:57)
--- NOTE | 2018-06-26 07:36 | P.PN ---
Progress Note - Text The patient is a 47-year-old female who initially presented with chest pain and admitted on the . The patient underwent urgent angioplasty and stenting of the LAD and first diagonal branch. She subsequently underwent further extraction of clots but has generally done well. She remains in the intensive care unit this morning. She denies any unusual chest pain or or shortness of breath. She does have risk factors with hypercholesterolemia, smoking history and family history. Vital signs show temperature 98.5 with a pulse of 80 and respirations 11. Blood pressure 106/73 and she is 90% saturated. Lungs are clear to auscultation. Heart tones were regular. Abdomen nontender. Extremities revealed no edema. Neurologically she is alert and oriented without focal weakness noted. Laboratory White count is 15.6 with a hemoglobin 10.3 and a platelet count of 248. Sodium is 136 with a potassium 3.9. Her GFR is greater than 90. Blood sugar was 104. Troponin from yesterday was elevated at 79. Urine cultures pending. Echocardiogram Mild to moderately impaired ejection fraction of 40-45%. Some hypokinesis of the mid LV wall. Impressions and plans Patient is status post acute ST segment elevated myocardial infarction as stated above. She is also post angioplasties. She is overall doing well and intensive care unit on her aspirin along with atorvastatin and beta blockers have been initiated. She is also on nitrates. Continue to progress as tolerated and will await for further recommendations from cardiology. Once again risk modification and lifestyle changes stressed.
[2018-06-26] MEDS: ASPIRIN 325 MG TAB PO SCH (09:06)
[2018-06-26] MEDS: METOPROLOL TARTRATE 25 MG TAB PO SCH ×2 (09:06→21:14)
[2018-06-26] MEDS: ISOSORBIDE MONONITRATE ER 30 MG TAB.ER.24H PO SCH (09:06)
[2018-06-26] MEDS: PANTOPRAZOLE 40 MG/10 ML VIAL IV SCH (09:07)
[2018-06-26] MEDS: ACETAMINOPHEN TAB 325 MG TAB PO PRN ×2 (09:09→18:00)
[2018-06-26] MEDS: ONDANSETRON 4 MG/2 ML VIAL IVP PRN (09:10)
[2018-06-26] MEDS: PRASUGREL 10 MG TAB PO SCH (09:11)
--- NOTE | 2018-06-26 10:16 | XR ---
EXAMINATION TYPE: XR chest 1V portable DATE OF EXAM: 06/26/2018 COMPARISON: Prior chest x-ray 06/24/2018 HISTORY: Shortness of breath TECHNIQUE: Single frontal view of the chest is obtained. FINDINGS: Patchy basilar density is noted on the right. Heart is enlarged. Right hemidiaphragm is el evated. No evident pneumothorax or sizable effusion. There are overlying cardiac leads. IMPRESSION: There may be subsegmental atelectasis, correlate to exclude pneumonia, additional findin gs above. Follow-up PA and lateral chest x-ray recommended.
[2018-06-26] MEDS: FUROSEMIDE 10 MG/ML 4 ML VIAL IV SCH ×2 (10:55→21:10)
--- NOTE | 2018-06-26 11:38 | P.PN ---
Subjective Progress Note Date: 06/26/18 Principal diagnosis: Acute coronary syndrome This is a pleasant 47-year-old female patient with prior history of smoking and significant family history of coronary artery disease who presented to the emergency room complaining of chest discomfort and EKG finding consistent with acute anterolateral ST segment elevation. Subsequently she was taken emergently to the cardiac electroplating laborer where she underwent an emergent heart catheterization and was found to have critical lesion involving the mid LAD by the bifurcation of a good size diagonal branch with a very complex lesion. The patient underwent successful stenting of both the LAD and diuretics with a good angiographic results by the end. The procedure was complicated by acute stent thrombosis where the patient was taken again to the cardiac electroplating laborer and was found to have occluded stents in both the LAD and diagonal. I did perform successful stenting of the LAD and also successful aspiration thrombectomy of a large red clot from the LAD with restoring ERICK-3 flow to the LAD. I did performed by the end intravascular ultrasound to assure that the stent this time was well opposed to the wall of the LAD. Subsequently the patient was started on IIb IIIa inhibitors with Aggrastat. Also I did change her oral antiplatelet from Brilinta to Effient. On follow-up with the patient today, June 262018, she is not doing and not feeling better today. She stated that she is tired and fatigued. No chest pain or discomfort. She is more short of breath laying flat in bed. She did also gained some weight. The echo showed impaired LV function was EF between 40 -45%. The troponin went up to 79. Objective - Vital Signs Vital signs: Vital Signs Temp 98.5 F 06/26/18 08:00 Pulse 68 06/26/18 11:00 Resp 19 06/26/18 11:00 BP 110/72 06/26/18 11:00 Pulse Ox 93 L 06/26/18 11:00 Intake & Output 06/25/18 06/26/18 06/26/18 18:59 06:59 18:59 Intake Total 1105 420 40 Output Total 390 Balance 715 420 40 Weight 87 kg 92.5 kg Intake: IV 865 220 40 0.9 @ 20 40 220 40 Sodium Chloride 0.9% 1, 825 000 ml @ 75 mls/hr IV . [id number] [facility] Rx#:[id number] Oral 240 200 Output: Urine 390 Other: Voiding Method Toilet Toilet # Voids 1 1 1 - Constitutional General appearance: Present: no acute distress - Respiratory Respiratory: bilateral: CTA - Cardiovascular Rhythm: regular Heart sounds: normal: S1, S2 - Labs CBC & Chem 7: 06/26/18 04:38 06/26/18 04:38 Labs: Abnormal Lab Results - Last 24 Hours (Table) 06/26/18 06/26/18 Range/Units 04:38 04:38 WBC 15.6 H (3.8-10.6) k/uL RBC 3.45 L (3.80-5.40) m/uL Hgb 10.3 L (11.4-16.0) gm/dL Hct 31.7 L (34.0-46.0) % Neutrophils # 12.4 H (1.3-7.7) k/uL Sodium 136 L (137-145) mmol/L Glucose 104 H (74-99) mg/dL Phosphorus 1.9 L (2.5-4.5) mg/dL Microbiology - Last 24 Hours (Table) 06/25/18 01:40 Urine Culture - Preliminary Urine,Catheterized Assessment and Plan Assessment: Assessment #[address] segment elevation myocardial infarction #2 significant family history of coronary artery disease #3 prior history of smoking Plan #1 continue the current medical regimen including dual antiplatelet therapy and statin #2 continue metoprolol at the current dose #3 add Lasix to the current medical regimen #4 continue monitor the kidney function and electrolytes #5 follow-up with the patient Thank you for allowing us participate in her care and we will continue following up with her
[2018-06-26 12:45] LABS: Hemoglobin A1C 5.6 % (4.0-6.0)
[2018-06-26 17:00] LABS: Anion Gap 4 mmol/L; Blood Urea Nitrogen 12 mg/dL (7-17); Calcium 8.4 mg/dL (8.4-10.2); Carbon Dioxide 27 mmol/L (22-30); Chloride 106 mmol/L (98-107); Glucose 93 mg/dL (74-99); Sodium 137 mmol/L (137-145)
[2018-06-26] MEDS: MORPHINE SULFATE 2 MG/ML SYRINGE IVP PRN ×2 (17:59→21:35)
[2018-06-26] MEDS: ATORVASTATIN 80 MG TAB PO SCH (21:14)
[2018-06-27 05:27] LABS: Basophils # (A) 0.1 k/uL (0-0.2); Basophils % (A) 0 %; Eosinophils # (A) 0.3 k/uL (0-0.7); Eosinophils % (A) 2 %; HGB 11.1 gm/dL (11.4-16.0); Lymphocytes % (A) 15 %; MCH 29.7 pg (25.0-35.0); MCHC 32.7 g/dL (31.0-37.0); MCV 90.8 fL (80.0-100.0); Mean Platelet Volume 6.8; Monocytes # (A) 0.7 k/uL (0-1.0); Monocytes % (A) 5 %; Neutrophils # (A) 10.1 k/uL (1.3-7.7); Neutrophils % (A) 76 %; Platelet Count 273 k/uL (150-450); RBC 3.74 m/uL (3.80-5.40); RDW 13.9 % (11.5-15.5); WBC 13.4 k/uL (3.8-10.6)
[2018-06-27 05:41] LABS: Anion Gap 7 mmol/L; Blood Urea Nitrogen 15 mg/dL (7-17); Carbon Dioxide 27 mmol/L (22-30); Chloride 105 mmol/L (98-107); Glucose 97 mg/dL (74-99); Magnesium 2.1 mg/dL (1.6-2.3); Phosphorus 3.8 mg/dL (2.5-4.5); Sodium 139 mmol/L (137-145)
[2018-06-27] MEDS: MORPHINE SULFATE 2 MG/ML SYRINGE IVP PRN (05:45)
--- NOTE | 2018-06-27 07:45 | XR ---
EXAMINATION TYPE: XR chest 1V DATE OF EXAM: 06/27/2018 COMPARISON: Prior chest x-ray 06/26/2018 HISTORY: Shortness of breath TECHNIQUE: Single frontal view of the chest is obtained. FINDINGS: Subsegmental basilar atelectatic changes are again noted. No pneumothorax. Elevation of th e right hemidiaphragm is mild. Heart size is normal. There are overlying cardiac leads. IMPRESSION: Similar findings, correlate for pneumonia versus basilar atelectasis. Follow-up PA and l ateral chest x-ray recommended.
--- NOTE | 2018-06-27 08:19 | P.PN ---
Progress Note - Text The patient is a 47-year-old female who presented with chest pain and was admitted on the of this month. Patient underwent urgent angioplasty and stenting of the LAD and first diagonal branch and subsequently underwent a clot extraction with generally good results. Presently she remains in the intensive care unit. She is having some chest pain with deep inspiration. substernal. Otherwise she does not feel short of breath. No nausea or vomiting. No unusual cough or fevers. Temperature is 98.2 with a pulse of 72 and respirations 15. Blood pressure is 95/62 and she is 95% saturated. Lungs are generally clear. I do not hear a rub at this time. Heart tones were regular. Abdomen nontender. No unusual edema. No focal neurological changes. Laboratory White count is 13.4 with a hemoglobin 11.1 and a platelet count of 273. Slight increase in PMN at 10.1 Electrolytes are normal with potassium 4.0. GFR is greater than 90 and blood sugar was 97. BNP done yesterday was 1820. Urine culture from the is no growth. Chest x-ray showed findings consistent with basilar pneumonia or atelectasis. Post FL with CHF Discussed with cardiology. Continue treatment and advance as tolerated.
--- NOTE | 2018-06-27 08:29 | P.PN ---
Subjective Progress Note Date: 06/27/18 Principal diagnosis: Acute coronary syndrome This is a pleasant 47-year-old female patient with prior history of smoking and significant family history of coronary artery disease who presented to the emergency room complaining of chest discomfort and EKG finding consistent with acute anterolateral ST segment elevation. Subsequently she was taken emergently to the cardiac organic lab worker where she underwent an emergent heart catheterization and was found to have critical lesion involving the mid LAD by the bifurcation of a good size diagonal branch with a very complex lesion. The patient underwent successful stenting of both the LAD and diuretics with a good angiographic results by the end. The procedure was complicated by acute stent thrombosis where the patient was taken again to the cardiac organic lab worker and was found to have occluded stents in both the LAD and diagonal. I did perform successful stenting of the LAD and also successful aspiration thrombectomy of a large red clot from the LAD with restoring ERICK-3 flow to the LAD. I did performed by the end intravascular ultrasound to assure that the stent this time was well opposed to the wall of the LAD. Subsequently the patient was started on IIb IIIa inhibitors with Aggrastat. Also I did change her oral antiplatelet from Brilinta to Effient. On follow-up with the patient today, June 272018, she is feeling better. No chest pain. The shortness of breath has improved. Yesterday she was started on Lasix IV at 40 mg twice a day. She continues to be on dual antiplatelet therapy along with a statin. The blood pressure has been marginal low and I will decrease the dose of Lasix 40 mg IV daily. Objective - Vital Signs Vital signs: Vital Signs Temp 98.2 F 06/27/18 04:00 Pulse 72 06/27/18 07:00 Resp 15 06/27/18 07:00 BP 95/62 06/27/18 07:00 Pulse Ox 95 06/27/18 07:00 Intake & Output 06/26/18 06/27/18 06/27/18 18:59 06:59 18:59 Intake Total 1020 150 Output Total 400 2400 0 Balance 620 -2250 0 Weight 81.6 kg Intake: IV 40 0 0.9 @ 20 40 0 Intake, IV Titration 250 Amount Potassium Phosphate 10 250 mmol In Sodium Chloride 0 .9% 250 ml @ 125 mls/hr IV Q2H [facility] Rx#:[id number] Oral 730 150 Output: Urine 400 2400 0 Other: Voiding Method Toilet Toilet # Voids 1 - Constitutional General appearance: Present: no acute distress - Respiratory Respiratory: bilateral: CTA - Cardiovascular Rhythm: regular Heart sounds: normal: S1, S2 - Labs CBC & Chem 7: 06/27/18 04:22 06/27/18 04:22 Labs: Abnormal Lab Results - Last 24 Hours (Table) 06/27/18 Range/Units 04:22 WBC 13.4 H (3.8-10.6) k/uL RBC 3.74 L (3.80-5.40) m/uL Hgb 11.1 L (11.4-16.0) gm/dL Neutrophils # 10.1 H (1.3-7.7) k/uL Microbiology - Last 24 Hours (Table) 06/25/18 01:40 Urine Culture - Final Urine,Catheterized Assessment and Plan Assessment: Assessment #[address] segment elevation myocardial infarction #2 significant family history of coronary artery disease #3 prior history of smoking Plan #1 continue the current medical regimen including dual antiplatelet therapy and statin #2 continue metoprolol at the current dose #3 decrease the dose of Lasix to 40 mg IV daily #4 continue monitor the kidney function and electrolytes #5 follow-up with the patient Thank you for allowing us participate in her care and we will continue following up with her
[2018-06-27] MEDS: ASPIRIN 325 MG TAB PO SCH (09:03)
[2018-06-27] MEDS: FUROSEMIDE 10 MG/ML 4 ML VIAL IV SCH (09:04)
[2018-06-27] MEDS: DULoxetine HCL 60 MG CAPSULE.DR PO SCH (09:04)
[2018-06-27] MEDS: PRASUGREL 10 MG TAB PO SCH (09:05)
[2018-06-27] MEDS: PANTOPRAZOLE 40 MG TABLET PO SCH (09:05)
[2018-06-27] MEDS: METOPROLOL TARTRATE 25 MG TAB PO SCH ×2 (09:05→20:03)
[2018-06-27] MEDS: ISOSORBIDE MONONITRATE ER 30 MG TAB.ER.24H PO SCH ×2 (11:04→15:42)
[2018-06-27] MEDS: MULTIVITAMINS, THERA 1 EACH TAB PO SCH (13:05)
[2018-06-27] MEDS ORDERED: SIMETHICONE 80 MG CHEWABLE PO PRN (18:19)
[2018-06-27] MEDS: ATORVASTATIN 80 MG TAB PO SCH (20:03)
[2018-06-27] MEDS: ACETAMINOPHEN TAB 325 MG TAB PO PRN (20:04)
[2018-06-27] MEDS ORDERED: ALPRAZolam 0.5 MG TAB PO SCH (21:00)
[2018-06-28 05:51] VITALS: RESP 16
[2018-06-28 06:56] LABS: Basophils % (A) 0 %; Eosinophils # (A) 0.4 k/uL (0-0.7); Eosinophils % (A) 4 %; HCT 38.1 % (34.0-46.0); HGB 12.8 gm/dL (11.4-16.0); Lymphocytes # (A) 1.8 k/uL (1.0-4.8); Lymphocytes % (A) 16 %; MCH 30.3 pg (25.0-35.0); MCHC 33.7 g/dL (31.0-37.0); MCV 90.1 fL (80.0-100.0); Mean Platelet Volume 7.3; Monocytes # (A) 0.7 k/uL (0-1.0); Monocytes % (A) 6 %; Neutrophils # (A) 8.5 k/uL (1.3-7.7); Neutrophils % (A) 73 %; Platelet Count 368 k/uL (150-450); RBC 4.22 m/uL (3.80-5.40); RDW 14.1 % (11.5-15.5); WBC 11.6 k/uL (3.8-10.6)
[2018-06-28 07:10] LABS: Anion Gap 9 mmol/L; Blood Urea Nitrogen 17 mg/dL (7-17); Calcium 9.5 mg/dL (8.4-10.2); Carbon Dioxide 25 mmol/L (22-30); Chloride 106 mmol/L (98-107); Glucose 104 mg/dL (74-99); Phosphorus 4.5 mg/dL (2.5-4.5); Potassium 4.1 mmol/L (3.5-5.1); Sodium 140 mmol/L (137-145)
--- NOTE | 2018-06-28 08:14 | P.PN ---
Progress Note - Text The patient is a 47-year-old female who presented with chest pain and admitted on the . She had an acute anterolateral wall myocardial infarction with ST segment elevation. She underwent urgent angioplasty and stenting of the LAD and first diagonal branch and subsequently underwent further clot extraction with generally good results. This morning she is aroused in bed. States her pain has improved. States she slept well. Vital signs show temperature 90.8 with a pulse of 68 and respirations 16. Blood pressure is 91/56 and she is 94% saturated on room air. Lung and heart examination is clear and regular. No rubs or murmurs auscultated. No unusual edema. No focal neurological changes. Laboratory White count is decreased further to 11.6 with a hemoglobin 12.8 and a platelet count of 368. Electrolytes are normal. Blood sugar 104. Impressions and plans Basically as above. Risk factor modification discussed with patient regarding diet for cholesterol and cessation of smoking. She will ambulate further on the suazo today. We'll wait for further recommendations from cardiology regarding possible discharge soon. Discussed with nursing staff this morning.
[2018-06-28] MEDS: FUROSEMIDE 10 MG/ML 4 ML VIAL IV SCH (09:37)
[2018-06-28] MEDS: PRASUGREL 10 MG TAB PO SCH (09:38)
[2018-06-28] MEDS: ACETAMINOPHEN TAB 325 MG TAB PO PRN (09:38)
[2018-06-28] MEDS: ASPIRIN 325 MG TAB PO SCH (09:38)
[2018-06-28] MEDS: MULTIVITAMINS, THERA 1 EACH TAB PO SCH (09:38)
[2018-06-28] MEDS: PANTOPRAZOLE 40 MG TABLET PO SCH (09:38)
[2018-06-28] MEDS: DULoxetine HCL 60 MG CAPSULE.DR PO SCH (09:38)
[2018-06-28] MEDS: METOPROLOL TARTRATE 25 MG TAB PO SCH (09:38)
[2018-06-28] MEDS ORDERED: MORPHINE ORAL SOLN 10 MG/5 ML CUP PO PRN (10:46)
[2018-06-28] MEDS ORDERED: HYDROmorphone 4 MG TABLET PO PRN (10:46)
--- NOTE | 2018-06-28 14:52 | P.PN ---
Subjective Progress Note Date: 06/28/18 This is a pleasant 47-year-old female with prior history of smoking and significant family history of coronary artery disease who presented to the emergency room with chest discomfort and EKG findings consistent with acute anterior lateral ST segment elevation [place]. She was taken subsequently to the cardiac catheterization lab where she underwent emergent heart catheterization, she was found to have a critical lesion involving the mid LAD by the bifurcation and a diagonal branch with a very complex lesion. She underwent successful stenting of both the LAD and the diagonal branch with good angiographic results. The procedure was complicated by acute stent thrombosis where the patient was taken again to the cardiac catheterization lab and was found to have occluded stents in both the LAD and diagonal. Patient then underwent successful stenting of the LAD and aspiration thrombectomy of a large clot from the LAD with restoring ERICK-3 flow to the LAD. Subsequently the patient was started on IIb IIIa inhibitors with Aggrastat. She was changed from Brilinta to Effient as well. Patient was seen and examined on the telemetry unit today, she's doing well, denies any chest pain or difficulty in breathing. She has been up ambulating without any difficulty. Blood pressure 123/80, heart rate in the 70s, 97% on room air. White blood cell count 11.6, hemoglobin 12.8, platelet count 368. Sodium 140, potassium 4.1, BUN 17, creatinine 0.6. Objective - Vital Signs Vital signs: Vital Signs Temp 98.9 F 06/28/18 08:45 Pulse 70 06/28/18 11:15 Resp 16 06/28/18 11:15 BP 123/82 06/28/18 11:15 Pulse Ox 97 06/28/18 11:15 Intake & Output 06/27/18 06/28/18 06/28/18 18:59 06:59 18:59 Intake Total 240 20 240 Output Total 600 Balance -360 20 240 Weight 88.1 kg Intake: IV 20 0.9 20 Oral 240 240 Output: Urine 600 Other: Voiding Method Toilet Toilet Toilet # Voids 1 - Exam PHYSICAL EXAMINATION: GENERAL: 47-year-old female in no acute distress at the time of my examination HEENT: Head is atraumatic, normocephalic. Pupils equal, round. Sclera anicteric. Conjunctiva are clear. Mucous membranes of the mouth are moist. Neck is supple. There is no elevated jugular venous pressure. No carotid bruit is heard. HEART EXAMINATION: Heart S1, S2 normal. No murmur or gallop heard. CHEST EXAMINATION: Lungs are clear to auscultation and precussion. No chest wall tenderness is noted on palpation or with deep breathing. ABDOMEN: Soft, nontender. Bowel sounds are heard. No organomegaly noted. EXTREMITIES: 2+ peripheral pulses with no evidence of peripheral edema and no calf tenderness noted. NEUROLOGIC patient is awake, alert and oriented 3. . - Labs CBC & Chem 7: 06/28/18 06:05 06/28/18 06:05 Labs: Abnormal Lab Results - Last 24 Hours (Table) 06/28/18 06/28/18 Range/Units 06:05 06:05 WBC 11.6 H (3.8-10.6) k/uL Neutrophils # 8.5 H (1.3-7.7) k/uL Glucose 104 H (74-99) mg/dL Assessment and Plan Plan: Assessment and plan #[address] segment elevation [place] status post angioplasty and stenting of the LAD and circumflex #2 significant family history of coronary artery disease #3 prior history of smoking Plan Patient may be able to be discharged home today from cardiology's perspective. Follow-up appointment with Dr. Carlson in the office in one week. Patient will be discharged home on aspirin 325 mg daily, Lipitor 80 mg daily, Lasix 40 mg daily, metoprolol 25 mg one tablet by mouth twice a day, Effient 10 mg daily, sublingual nitroglycerin as needed for chest pain. DNP note has been reviewed, I agree with a documented findings and plan of care. Patient was seen and examined.
[2018-06-28 14:53] VITALS: BP 107/71; PULSE 67; TEMP 98
[2018-06-28] MEDS ORDERED: FUROSEMIDE 40 MG TAB PO SCH (15:00)
--- NOTE | 2018-06-29 07:10 | DS ---
DISCHARGE SUMMARY Mrs. Su is a 47-year-old female who presented initially with chest pain, underwent a heart catheterization, which revealed blockages of the LAD and first diagonal branch for which she underwent angioplasty and subsequently required further clot removal. She was seen by Cardiology, Dr. Houser. EKGs revealed ST-segment changes anterior laterally and troponins became elevated consistent with a anterior lateral ST-segment elevated myocardial infarction. Post procedure, she remained in the intensive care unit for stabilizing of her pain and blood pressures, but gradually did well and was able to be ambulated and moved to a regular floor. The laboratory studies initially revealed elevated white counts in the 15 to 22,000 range, but decreased down to 11.6 at discharge. Hemoglobins remained around 12 and platelet counts in the 2 to 300,000 range were stable. Sodium and electrolytes remained stable throughout her hospitalization. Her BUN at discharge was 17 with a creatinine 0.6, given her GFR greater than 90. Blood sugars were in the low 100 range. She did have a normal A1c. She did have some postprocedural congestive heart failure with BNP of 1820. Clearing of chest x-ray as she was given Lasix and back, but she was able to ambulate and do her daily activities without difficulties. Once again, her A1c was 5.6. Patient did have a history of smoking and also some hyperlipidemia and a positive family history. Discussions were held with risk reduction in mind with the patient. Urinalysis and urine culture was negative. Home medications will include a multiple vitamin daily. Continue her Cymbalta 60 mg daily, acetaminophen as needed for pain, alprazolam 0.5 mg at bedtime that she uses for sleep, Effient 10 mg daily, nitroglycerin 0.4 sublingual p.r.n., metoprolol tartrate 25 mg twice a day, furosemide 40 mg daily, atorvastatin 80 mg at bedtime and aspirin 325 daily. FINAL DISCHARGE DIAGNOSES: 1. Acute anterolateral wall myocardial infarction with status post catheterization with blockages of the LAD and first diagonal branch and status post angioplasty and clot removal of those areas. 2. Hyperlipidemia. 3. Positive smoking history. 4. History of depression. 5. History of insomnia. 6. Obesity. At this point, patient is to follow [facility] with [facility] and myself over the next several days. Diet with weight loss in mind as tolerated, low-cholesterol. Activities no strenuous activities or heavy lifting until follow up with Cardiology. MMODL / IJN: [id number] /
--- NOTE | 2018-06-29 12:57 | CDI ---
Documentation Clarification Form Date: 06/29/2018 12:43:26 PM From: CAESAR Landeros; Jessica Purvis Ssis Ssrs Developer Phone: If you have a question about this query, please contact Jessica Purvis Ssis Ssrs Developer at [phone] between 8am and 5pm. Admit Date: 06/24/2018 1:12:00 AM Patient Name: Tori Su Visit Number: [id number] Discharge Date: 06/28/2018 4:48:00 PM ATTENTION: The Clinical Documentation Specialists (CDI) and [facility] Coding Staff appreciate your assistance in clarifying documentation. Please respond to the clarification below the line at the bottom and electronically sign. The CDI & [facility] Coding staff will review the response and follow-up if needed. Please note: Queries are made part of the Legal Health Record. If you have any questions, please contact the author of this message via ITS. Dr. Juan Carlos Bliss CHF is documented in the discharge summary. History/Risk Factors: CAD, anterolateral wall PR, smoker, hyperlipidemia, obesity. She is status post PTCA w/3 drug-eluding stents and thrombectomy. Clinical Indicators: Shortness of breath and weight gain. BNP: 1820 Echocardiogram Results: EF 40-45% Chest X Ray: Segmental atelectasis. Treatment: IV Lasix 40 mg daily; started on 06-27 In your professional opinion, can you please clarify the acuity and type of CHF if known? Systolic Heart Failure: Acute Chronic Acute on Chronic Diastolic Heart Failure: Acute Chronic Acute on Chronic Systolic & Diastolic Heart Failure: Acute Chronic Acute on Chronic Heart Failure Unable to Determine Other, please specify acute on chronic CHF. RRD MTDD
--- NOTE | 2018-07-04 16:14 | CDI ---
Documentation Clarification Form Date: 07/04/2018 12:43:26 PM From: CAESAR Landeros; Jessica Purvis Tobacco Stripper Hand Phone: If you have a question about this query, please contact Jessica Purvis Tobacco Stripper Hand at [phone] between 8am and 5pm. Admit Date: 06/24/2018 1:12:00 AM Patient Name: Tori Su Visit Number: [id number] Discharge Date: 06/28/2018 4:48:00 PM ATTENTION: The Clinical Documentation Specialists (CDI) and [facility] Coding Staff appreciate your assistance in clarifying documentation. Please respond to the clarification below the line at the bottom and electronically sign. The CDI & [facility] Coding staff will review the response and follow-up if needed. Please note: Queries are made part of the Legal Health Record. If you have any questions, please contact the author of this message via ITS. Dr. Juan Carlos Bliss Acute and chronic CHF is answered on the prior query. History/Risk Factors: CAD, anterolateral wall NH, smoker, hyperlipidemia, obesity. She is status post PTCA w/3 drug-eluding stents and thrombectomy. Clinical Indicators: Shortness of breath and weight gain. BNP: 1820 Echocardiogram Results: EF 40-45% Chest X Ray: Segmental atelectasis. Treatment: IV Lasix 40 mg daily; started on 06-27 In your professional opinion, can you please clarify the type of CHF if known? Systolic Heart Failure: Diastolic Heart Failure: Systolic & Diastolic Heart Failure: Unable to Determine Other, please specify Acute systolic heart failure secondary to acute NH. MTDD
== END 2018-06-28 16:48 | disposition home health service (06) | DRG 246 ==
LOC: EC 00:16 → 2SICU 01:12 → 3SCARD 06-27 16:28
PROVIDERS: ADMIT Internal Medicine; ATTEND Internal Medicine
PROC: 027036Z Dilation of Coronary Artery, One Artery with Three Drug-eluting Intraluminal Devices, Percutaneous Approach (ICD-10-PCS; principal; 2018-06-24 00:45)
PROC: B240ZZ3 Ultrasonography of Single Coronary Artery, Intravascular (ICD-10-PCS; principal; 2018-06-24 00:45)
PROC: B2111ZZ Fluoroscopy of Multiple Coronary Arteries using Low Osmolar Contrast (ICD-10-PCS; principal; 2018-06-24 00:45)
PROC: 02C03ZZ Extirpation of Matter from Coronary Artery, One Artery, Percutaneous Approach (ICD-10-PCS; principal; 2018-06-24 00:45)
PROC: 3E033PZ Introduction of Platelet Inhibitor into Peripheral Vein, Percutaneous Approach (ICD-10-PCS; principal; 2018-06-24 00:45)
PROC: 4A023N7 Measurement of Cardiac Sampling and Pressure, Left Heart, Percutaneous Approach (ICD-10-PCS; principal; 2018-06-24 00:45)
PROC: B2151ZZ Fluoroscopy of Left Heart using Low Osmolar Contrast (ICD-10-PCS; principal; 2018-06-24 00:45)
DX: I21.09 ST elevation (STEMI) myocardial infarction involving other coronary artery of anterior wall (principal); I50.23 Acute on chronic systolic (congestive) heart failure; T82.867A Thrombosis due to cardiac prosthetic devices, implants and grafts, initial encounter; E66.9 Obesity, unspecified; Z68.30 Body mass index [BMI] 30.0-30.9, adult; E78.00 Pure hypercholesterolemia, unspecified; E78.5 Hyperlipidemia, unspecified; F32.9 Major depressive disorder, single episode, unspecified; G25.81 Restless legs syndrome; Z79.899 Other long term (current) drug therapy; Y83.1 Surgical operation with implant of artificial internal device as the cause of abnormal reaction of the patient, or of later complication, without mention of misadventure at the time of the procedure; Z80.3 Family history of malignant neoplasm of breast; Z82.49 Family history of ischemic heart disease and other diseases of the circulatory system; Z83.3 Family history of diabetes mellitus; Z87.891 Personal history of nicotine dependence; Z71.6 Tobacco abuse counseling
CPT/HCPCS: 36415; 71045; 80048; 80053; 81001; 82550; 82553; 83036; 83735; 83880; 84100; 84484; 85025; 85027; 87086; 92978; 93005; 93306; 93454; 93458; 93799; 96365; 96376; 99285; C1874

== ENCOUNTER → 2018-10-02 | Outpatient (CLI) | payer BC ==
--- NOTE | 2018-10-03 12:29 | MM ---
Reason for exam: screening (asymptomatic). Last mammogram was performed 2 years and 1 month ago. History: Patient is nulliparous. Family history of premenopausal breast cancer in sister at age 40. Reductions of both breasts, 2005. Took hormonal contraceptives for 5 years beginning at age 19. Physical Findings: A clinical breast exam by your physician is recommended on an annual basis and results should be correlated with mammographic findings. MG Screening Mammo w CAD Bilateral CC and MLO view(s) were taken. Prior study comparison: August 24, 2016, bilateral MG screening mammo w CAD. August 14, 2015, bilateral MG screening mammo w CAD. The breast tissue is heterogeneously dense. This may lower the sensitivity of mammography. There is no discrete abnormality. No significant changes when compared with prior studies. ASSESSMENT: Negative, BI-RAD 1 RECOMMENDATION: Routine screening mammogram of both breasts in 1 year.
== END | disposition home or self-care (01) ==
LOC: RADMAMWWP 12:27
PROVIDERS: ATTEND Internal Medicine
DX: Z12.31 Encounter for screening mammogram for malignant neoplasm of breast (principal)
CPT/HCPCS: 77067

== ENCOUNTER → 2019-02-01 | Outpatient (CLI) | payer BC ==
--- NOTE | 2019-02-01 11:31 | US ---
EXAMINATION TYPE: US pelvic complete DATE OF EXAM: 02/01/2019 COMPARISON: NONE CLINICAL HISTORY: 48-year-old female N92.1 menorrhagia with irregular cycle. TECHNIQUE: Transabdominal sonographic images of the pelvis were acquired. Leak Gang Supervisor notes: Patien t declined transvaginal ultrasound. Educated patient and still declined Date of LMP: 2.5 weeks ago FINDINGS: EXAM MEASUREMENTS: Uterus: 10.3 x 5.3 x 6.4 cm Endometrial Stripe: 0.6 cm Right Ovary: 2.4 x 2.2 x 1.9 cm Left Ovary: 4.5 x 4.3 x 4.0 cm 1. Uterus: Anteverted and retroflexed. Heterogeneous 2. Endometrium: wnl 3. Right Ovary: wnl 4. Left Ovary: Cystic area visualized measuring 3.9 x 3.0 x 3.4 cm 5. Bilateral Adnexa: wnl 6. Posterior cul-de-sac: wnl IMPRESSION: 1. Heterogeneous myometrium could reflect diffuse small fibroid change or adenomyosis. 2. Left ovary is enlarged secondary to a 3.9 cm cyst that probably represents a dominant follicle or functional cyst. 3. No pelvic free fluid.
== END | disposition home or self-care (01) ==
LOC: RADUSWWP 09:32
PROVIDERS: ATTEND Obstetrics & Gynecology
DX: N83.292 Other ovarian cyst, left side (principal); N83.8 Other noninflammatory disorders of ovary, fallopian tube and broad ligament
CPT/HCPCS: 76856

== ENCOUNTER → 2019-04-12 | Outpatient (CLI) | payer BC ==
[2019-04-12 14:56] LABS: Basophils # (A) 0.1 k/uL (0-0.2); Basophils % (A) 0 %; Eosinophils # (A) 0.3 k/uL (0-0.7); Eosinophils % (A) 2 %; HCT 46.1 % (34.0-46.0); HGB 14.8 gm/dL (11.4-16.0); Lymphocytes # (A) 3.3 k/uL (1.0-4.8); Lymphocytes % (A) 20 %; MCH 28.7 pg (25.0-35.0); MCHC 32.1 g/dL (31.0-37.0); MCV 89.4 fL (80.0-100.0); Mean Platelet Volume 6.4; Monocytes # (A) 0.6 k/uL (0-1.0); Monocytes % (A) 4 %; Neutrophils # (A) 11.7 k/uL (1.3-7.7); Neutrophils % (A) 72 %; Platelet Count 361 k/uL (150-450); RBC 5.16 m/uL (3.80-5.40); RDW 13.9 % (11.5-15.5); WBC 16.3 k/uL (3.8-10.6)
== END | disposition home or self-care (01) ==
LOC: LABPAT 13:20
PROVIDERS: ATTEND Obstetrics & Gynecology
DX: Z01.812 Encounter for preprocedural laboratory examination (principal)
CPT/HCPCS: 85025

== ENCOUNTER → 2019-04-19 | Day surgery (SDC) | payer BC ==
[2019-04-17 10:22] VITALS: BMI 31.3
--- NOTE | 2019-04-18 21:01 | P.HPOB ---
History of Present Illness H&P Date: 04/18/19 Chief Complaint: Menorrhagia with irregular cycle This is a 48-year-old female 0 who presents for dilation and curettage with hysteroscopy and NovaSure endometrial ablation secondary to menorrhagia with irregular cycle. She complains of heavy painful menses that have been irregular and lasting longer than usual for the last 2 years. Menses are occurring every 2-1/2-3 weeks and lasting up to 10 days. Pelvic ultrasound showed a uterus measuring 10.3 x 5.3 x 6.47 m was endometrial stripe thickness of 0.6 cm. Her left ovary did have a simple 3.9 cm cyst noted. She would like definitive surgical treatment to control her bleeding issues. She is not currently involved with any partner and does understand that this is not a form of control. The patient has been cleared by her informatics pharmacist Dr. Houser to undergo surgery. Obstetrical history: G0. Gynecologic history: No history of sexual transmitted diseases. Social history: She is single. 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 Review of Systems Constitutional: Reports night sweats, Denies chills, Denies fever Eyes: denies blurred vision, denies pain Ears, nose, mouth and throat: Denies headache, Denies sore throat Cardiovascular: Denies chest pain, Denies shortness of breath Respiratory: Denies cough Gastrointestinal: Denies abdominal pain, Denies diarrhea, Denies nausea, Denies vomiting Genitourinary: Reports dysmenorrhea, Reports menorrhagia Menstruation: Reports menses variable Musculoskeletal: Reports low back pain, Reports myalgias Integumentary: Denies pruritus, Denies rash Neurological: Denies numbness, Denies weakness Psychiatric: Reports anxiety, Reports depression, Reports difficulty concentrating, Reports irritability Endocrine: Reports flushing Past Medical History Past Medical History: GERD/Reflux, Hyperlipidemia, Hypertension, Myocardial Infarction ([place]) Additional Past Medical History / Comment(s): depression Last Myocardial Infarction Date:: 06/23 History of Any Multi-Drug Resistant Organisms: None Reported Past Surgical History: Breast Surgery, Heart Catheterization With Stent Additional Past Surgical History / Comment(s): Breast reduction, 2 cardiac stents. Past Anesthesia/Blood Transfusion Reactions: Motion Sickness, Postoperative Nausea & Vomiting (PONV) Date of Last Stent Placement:: 06/2018 Past Psychological History: Depression Smoking Status: Former smoker Past Alcohol Use History: None Reported Additional Past Alcohol Use History / Comment(s): Quit smoking Jun 2018, smoked for 20 yrs, 1/2 PPD. Past Drug Use History: Marijuana (Occasional every few months) - Past Family History Mother Family Medical History: Chest Pain / Angina, Myocardial Infarction ([place]) Sister(s) Family Medical History: Cancer Additional Family Medical History / Comment(s): Breast cancer. Medications and Allergies Home Medications Medication Instructions Recorded Confirmed Type ALPRAZolam [Xanax] 0.5 mg PO HS 06/24/18 04/17/19 History Acetaminophen [Tylenol 8 Hour] 650 mg PO BID 06/24/18 04/17/19 History DULoxetine HCL [Cymbalta] 60 mg PO QAM 06/24/18 04/17/19 History Multivitamins, Thera [Multivitamin 1 tab PO DAILY 06/24/18 04/17/19 History (formulary)] Aspirin 325 mg PO DAILY #30 tab 06/28/18 04/17/19 Rx Atorvastatin [Lipitor] 80 mg PO HS #30 tab 06/28/18 04/17/19 Rx Metoprolol Tartrate [Lopressor] 25 mg PO BID #60 tab 06/28/18 04/17/19 Rx Nitroglycerin Sl Tabs [Nitrostat] 0.4 mg SUBLINGUAL Q5M PRN #25 tab 06/28/18 04/17/19 Rx Prasugrel [Effient] 10 mg PO DAILY #30 tab 06/28/18 04/17/19 Rx Furosemide [Lasix] 20 mg PO DAILY 04/17/19 04/17/19 History Spironolactone 25 mg PO DAILY 04/17/19 04/17/19 History Allergies Allergy/AdvReac Type Severity Reaction Status Date / Time No Known Allergies Allergy Verified 04/17/19 09:58 Exam Osteopathic Statement: *. No significant issues noted on an osteopathic structural exam other than those noted in the History and Physical/Consult. HEENT: Within normal limits Heart: Regular rate and rhythm Lungs: Clear to auscultation bilaterally Abdomen: Soft, nontender Pelvic exam: Uterus is mid position, nontender, with no adnexal masses or tenderness palpated Extremities: Negative Homans Assessment and Plan (1) Menorrhagia with irregular cycle Status: Acute Code(s): N92.1 - EXCESSIVE AND FREQUENT MENSTRUATION WITH IRREGULAR CYCLE SNOMED Code(s): 097945061 Plan: Proceed with dilation and curettage with hysteroscopy and NovaSure endometrial ablation. I have discussed the risks, benefits, and alternative therapies for the above- mentioned procedure and for both sedation/anesthesia as well as necessary blood products administration, if indicated, as they pertain to this patient. The patient has indicated her understanding and acceptance of the risks and procedures discussed.
[~2019-04-19] MED LIST: DEXAMETHASONE SOD PHOSPHATE 10 MG/ML 1 ML VIAL IV ONE; HYDROmorphone 0.5 MG/0.5 ML SYRINGE IVP PRN; IBUPROFEN 200 MG TAB PO ONE; KETOROLAC 30 MG/ML 1 ML VIAL ONE; LACTATED RINGERS 1,000 ML IV SCH; LIDOCAINE 1% 20 ML VIAL (10MG/ML) FOR IV START INTRADERMA PRN; LIDOCAINE 1% INJ 10MG/ML (20 ML MDV) ONE; MIDAZOLAM 2 MG/2 ML VIAL IV PRN; MIDAZOLAM 2 MG/2 ML VIAL ONE; ONDANSETRON 4 MG/2 ML VIAL IVP ONE; PROPOFOL 10 MG/ML 20 ML VIAL IV ONE; Pre Op ABX Message 1 EACH MISC MISCELLANE ONE; SCOPOLAMINE 1.5MG/72HR PATCH TRANSDERM ONE; SUCCINYLCHOLINE CHLORIDE 100 MG/5 ML SYR IV ONE; fentaNYL (PF) 50 MCG/ML 2 ML AMP ONE
--- NOTE | 2019-04-19 08:10 | P.OP ---
Date of Procedure: 04/19/19 Preoperative Diagnosis: Menorrhagia with irregular cycle Postoperative Diagnosis: Same Procedure(s) Performed: Dilation and curettage with hysteroscopy and NovaSure endometrial ablation Anesthesia: MARSHALL Surgeon: Noelle Domínguez Estimated Blood Loss (ml): 5 Pathology: other (Endometrial curettings) Condition: stable Disposition: same day Indications for Procedure: This is a 48-year-old female 0 who presents for dilation and curettage with hysteroscopy and NovaSure endometrial ablation secondary to menorrhagia with irregular cycle. She complains of heavy painful menses that have been irregular and lasting longer than usual for the last 2 years. Menses are occurring every 2-1/2-3 weeks and lasting up to 10 days. Pelvic ultrasound showed a uterus measuring 10.3 x 5.3 x 6.47 m was endometrial stripe thickness of 0.6 cm. Her left ovary did have a simple 3.9 cm cyst noted. She would like definitive surgical treatment to control her bleeding issues. She is not currently involved with any partner and does understand that this is not a form of control. The patient has been cleared by her fish bin tender Dr. Houser to undergo surgery. Operative Findings: Uterus is anteverted and sounded to 10 cm. Cervix is sounded to 3 cm. Upon hy steroscopy the left tubal ostia is visualized and the right tubal ostia is not visible. There is a small submucosal fibroid on the right anterior wall. Fairly dyssynchronous endometrial pattern is noted. A moderate amount of endometrial curettings are obtained. Description of Procedure: The patient is taken to the operating room. She is placed in the dorsal lithotomy position after general anesthesia was given. She is prepped and draped in the normal sterile fashion. Bladder is drained with a catheter and then removed. Pelvic exam is performed under anesthesia. Uterus is found to be anteverted with no adnexal masses. She is placed in slight Trendelenburg position. A right angle retractor is used to visualize the cervix. The anterior lip of the cervix is grasped with a single-tooth tenaculum. Cervix is sounded to 3 cm. Uterus is sounded to 10 cm. Cervix is gently dilated with Haro dilators until a hysteroscope could be passed. Hysteroscopy is performed using normal saline. The above noted findings are noted. Next a polyp forceps is introduced. A moderate amount of tissue was obtained. Next medium-sized size sharp curette was placed. A moderate amount of endometrial curettings were obtained. Next NovaSure array was inserted into the endometrial cavity. Length was set at 6.5 cm and width was determined to be 3.3 cm. Next cavity assessment was completed and passed on the first try. Next NovaSure array was fired at 118 W for 57 seconds. Next the array was removed, inspected and then discarded. Next the hysteroscope was reinserted. Uniform charring was noted. Pictures were taken. Hysteroscope was removed. Single-tooth tenaculum was removed from the anterior lip of the cervix. Minimal bleeding was noted. All other inst ruments removed from the vagina. Sponge counts were correct. Patient is taken to recovery room in stable condition.
[2019-04-19 08:26] VITALS: TEMP 97.1
[2019-04-19 09:47] VITALS: BP 107/68; PULSE 67; RESP 17
== END | disposition home or self-care (01) ==
LOC: OR 06:21
PROVIDERS: ATTEND Obstetrics & Gynecology
DX: N92.1 Excessive and frequent menstruation with irregular cycle (principal); N94.6 Dysmenorrhea, unspecified; D25.0 Submucous leiomyoma of uterus; N83.202 Unspecified ovarian cyst, left side; I25.2 Old myocardial infarction; I25.10 Atherosclerotic heart disease of native coronary artery without angina pectoris; I10 Essential (primary) hypertension; E78.5 Hyperlipidemia, unspecified; F32.9 Major depressive disorder, single episode, unspecified; F41.9 Anxiety disorder, unspecified; K21.9 Gastro-esophageal reflux disease without esophagitis; Z87.891 Personal history of nicotine dependence; Z79.82 Long term (current) use of aspirin; Z79.899 Other long term (current) drug therapy; Z95.5 Presence of coronary angioplasty implant and graft; Z98.890 Other specified postprocedural states; Z82.49 Family history of ischemic heart disease and other diseases of the circulatory system; Z80.3 Family history of malignant neoplasm of breast
CPT/HCPCS: 81025; 58563; J2250; J1100; J2405; J2001; J3010; J1885; J0330; J2704; J1170; 88305

== ENCOUNTER → 2019-12-26 | Outpatient (CLI) | payer BC ==
[2019-12-26 11:48] LABS: Basophils # (A) 0.1 k/uL (0-0.2); Basophils % (A) 1 %; Eosinophils # (A) 0.4 k/uL (0-0.7); Eosinophils % (A) 5 %; HCT 47.5 % (34.0-46.0); HGB 15.3 gm/dL (11.4-16.0); Lymphocytes # (A) 2.1 k/uL (1.0-4.8); Lymphocytes % (A) 22 %; MCH 29.8 pg (25.0-35.0); MCHC 32.2 g/dL (31.0-37.0); MCV 92.7 fL (80.0-100.0); Mean Platelet Volume 7.2; Monocytes # (A) 0.5 k/uL (0-1.0); Monocytes % (A) 5 %; Neutrophils # (A) 6.5 k/uL (1.3-7.7); Neutrophils % (A) 67 %; Platelet Count 286 k/uL (150-450); RBC 5.13 m/uL (3.80-5.40); RDW 13.9 % (11.5-15.5); WBC 9.6 k/uL (3.8-10.6)
[2019-12-26 19:40] LABS: Erythrocyte Sedimentation Rate 8 mm/Hr (0-20)
[2019-12-26 21:15] LABS: C Reactive Protein <0.4 mg/dL (0.0-0.8); Rheumatoid Factor, Qnt 5 IU/mL (0-15); Uric Acid 4.3 mg/dL (2.9-7.7)
[2019-12-27 11:35] LABS: ANA Pattern Nucleolar
[2019-12-27 13:14] LABS: HLA B27 NEGATIVE
== END | disposition home or self-care (01) ==
LOC: LABWHC1 11:25
PROVIDERS: ATTEND Orthopaedic Surgery
DX: M25.50 Pain in unspecified joint (principal)
CPT/HCPCS: 36415; 84550; 85025; 85652; 86038; 86039; 86140; 86431; 86618; 86812

== ENCOUNTER → 2020-03-30 | Outpatient (CLI) | payer BC ==
--- NOTE | 2020-03-30 16:58 | MR ---
EXAMINATION TYPE: MR shoulder LT wo con DATE OF EXAM: 03/30/2020 COMPARISON: Plain film 12/26/2019 outside institution HISTORY: Left shoulder pain TECHNIQUE: Multiplanar, multisequence imaging of the left shoulder is performed without contrast. FINDINGS: Rotator Cuff: At the anterior margin of the rotator cuff the supraspinatus tendon insertion, there is a partial full-thickness tear, sagittal image #5, coronal image #13 Acromioclavicular Joint: Hypertrophic changes at the acromion clavicular joint causes mass effect on the musculotendinous junction of supraspinatus, there is a distal acromial spur Glenohumeral Joint: Intact Labrum: The labrum appears grossly intact given limitation of non-arthrogram study. Biceps Tendon: The long head of biceps is in normal location within bicipital groove. Bone marrow signal: No focal abnormal marrow signal is appreciated. Other: There is some fluid signal in the subacromial subdeltoid bursa IMPRESSION: Correlate for impingement, is consistent with partial full-thickness tear rotator cuff
== END | disposition home or self-care (01) ==
LOC: RADMRIMAIN 13:16
PROVIDERS: ATTEND Orthopaedic Surgery
DX: M25.512 Pain in left shoulder (principal)

== ENCOUNTER → 2020-05-08 | Outpatient (CLI) | payer BC ==
[2020-05-08 13:53] LABS: HCT 46.1 % (34.0-46.0); HGB 14.9 gm/dL (11.4-16.0); MCHC 32.3 g/dL (31.0-37.0); Mean Platelet Volume 7.6; Platelet Count 319 k/uL (150-450); RBC 4.96 m/uL (3.80-5.40); WBC 12.5 k/uL (3.8-10.6)
[2020-05-08 20:42] LABS: Anti-DNA, DS unit <1.0 IU/mL; Anti-Smith Ab Interp NEGATIVE (NEGATIVE); Centromere Antibody <0.2 AI; Centromere Antibody Interp NEGATIVE (NEGATIVE); Cyclic Citrull Pep IgG Unit 1.2 U/mL; Cyclic Citrullinated Pep IgG NEGATIVE (NEGATIVE); DNA Double-Stranded NEGATIVE (NEGATIVE); Scleroderma SC-70 Ab <0.2 AI
[2020-05-08 21:32] LABS: ALT 35 U/L (8-44); AST 23 U/L (13-35); African American GFR (CKD) 86.4 (60.0-200.0); Albumin/Globulin Ratio 2.14 (1.60-3.17); Alkaline Phosphatase 49 U/L (41-126); BUN/Creat Ratio 18.89 Ratio (12.00-20.00); C Reactive Protein <0.4 mg/dL (0.0-0.8); Calcium 9.7 mg/dL (8.7-10.3); Carbon Dioxide 24.7 mmol/L (21.6-31.8); Chloride 106 mmol/L (96-109); Creatine Kinase 68 U/L (26-186); Folate, Serum >24.0 ng/mL; Globulin 2.2 g/dL (1.6-3.3); Glucose 103 mg/dL (70-110); Non-African American GFR(CKD) 74.6 (60.0-200.0); Potassium 4.7 mmol/L (3.5-5.5); Sodium 139 mmol/L (135-145); Total Bilirubin 0.4 mg/dL (0.3-1.2); Total Protein 6.9 g/dL (6.2-8.2)
[2020-05-09 03:45] LABS: Erythrocyte Sedimentation Rate 8 mm/Hr (0-20)
[2020-05-09 07:39] LABS: Hemoglobin A1C 5.9 % (4.0-6.0)
[2020-05-11 12:58] LABS: Histone Antibody 0.3 UNITS (<1.0)
== END | disposition home or self-care (01) ==
LOC: LABWHC1 12:07
PROVIDERS: ATTEND Psychiatry & Neurology Pain Medicine
DX: M25.50 Pain in unspecified joint (principal); G89.4 Chronic pain syndrome; M79.7 Fibromyalgia; Z79.899 Other long term (current) drug therapy
CPT/HCPCS: 36415; 80053; 82306; 82550; 82607; 82746; 83036; 83516; 83519; 83735; 84207; 84425; 84446; 84590; 84591; 84597; 85027; 85652; 86038; 86140; 86200; 86225; 86235

== ENCOUNTER 2020-06-11 09:33 | Emergency (ER) | payer BC ==
[2020-06-11] MEDS ORDERED: SODIUM CHLORIDE 0.9% 1,000 ML IV STA (10:18)
[2020-06-11 10:53] LABS: Basophils # (A) 0.1 k/uL (0-0.2); Basophils % (A) 0 %; Eosinophils # (A) 0.3 k/uL (0-0.7); Eosinophils % (A) 2 %; HCT 46.7 % (34.0-46.0); Lymphocytes # (A) 2.2 k/uL (1.0-4.8); Lymphocytes % (A) 13 %; MCH 29.4 pg (25.0-35.0); MCHC 32.2 g/dL (31.0-37.0); MCV 91.3 fL (80.0-100.0); Mean Platelet Volume 7.2; Monocytes # (A) 0.6 k/uL (0-1.0); Monocytes % (A) 4 %; Neutrophils # (A) 13.9 k/uL (1.3-7.7); Neutrophils % (A) 81 %; Platelet Count 320 k/uL (150-450); RBC 5.12 m/uL (3.80-5.40); RDW 13.7 % (11.5-15.5); WBC 17.3 k/uL (3.8-10.6)
[2020-06-11 10:59] LABS: Appearance,Urine Cloudy (Clear); Bilirubin,Urine Negative (Negative); Blood,Urine Negative (Negative); Color,Urine Yellow; Glucose,Urine (UA) Negative (Negative); Ketones,Urine Negative (Negative); Leukocyte Esterase,Urine Small (Negative); Mucus,Urine Moderate /hpf; Nitrite,Urine Negative (Negative); Protein,Urine Negative (Negative); RBC,Urine 2 /hpf (0-5); Squamous Epithelial Cell,Urine 2 /hpf (0-4); WBC,Urine 3 /hpf (0-5)
[2020-06-11 11:09] LABS: ALT 33 U/L (4-34); AST 27 U/L (14-36); African American GFR (CKD) >90 (>60 ml/min/1.73 sqM); Albumin 4.2 g/dL (3.5-5.0); Alkaline Phosphatase 48 U/L (38-126); Amylase 58 U/L (30-110); Anion Gap 6 mmol/L; Blood Urea Nitrogen 12 mg/dL (7-17); Calcium 9.4 mg/dL (8.4-10.2); Carbon Dioxide 29 mmol/L (22-30); Chloride 102 mmol/L (98-107); Glucose 117 mg/dL (74-99); Lipase 166 U/L (23-300); Non-African American GFR(CKD) >90 (>60 ml/min/1.73 sqM); Potassium 3.4 mmol/L (3.5-5.1); Sodium 137 mmol/L (137-145); Total Bilirubin 0.6 mg/dL (0.2-1.3); Total Protein 7.1 g/dL (6.3-8.2)
--- NOTE | 2020-06-11 11:45 | CT ---
EXAMINATION TYPE: CT abdomen pelvis w con DATE OF EXAM: 06/11/2020 COMPARISON: NONE HISTORY: 49-year-old female Abdominal pain, R/O obstruction TECHNIQUE: Contiguous axial scanning of the abdomen and pelvis following administration of 100 ml Iso nunu 300 IV contrast. Delayed images through the kidneys and coronal/sagittal reconstructions perform ed. CT DLP: 1239.5 mGycm Automated exposure control for dose reduction was used. FINDINGS: Heart normal size without pericardial effusion. Either a coronary stent or dense LAD calcifications. Mild dependent atelectasis along the visualized lung bases without pleural effusion. There may be some fatty infiltration of liver. Portal venous system is patent. No biliary ductal dila tation. Gallbladder, left adrenal gland, kidneys, spleen, and pancreas within normal limits. Tiny 9 mm nodule of the right adrenal gland statistically represents a benign adrenal adenoma. No dilated small bowel, free fluid, or free air. No mesenteric or retroperitoneal lymphadenopathy. Suspect a normal caliber appendix on coronal image 60. No secondary findings of acute appendicitis. T here is moderate stool burden without pericolonic inflammatory change. There is solid stool within th e rectum distending up to 6.1 cm. Uterus is anteverted. Lobulated contour suggesting underlying fibroid change. Both ovaries are visual ized. There is a 4.1 cm and 1.7 cm cyst within the left ovary. No abnormal fluid collection in the pe lvis or pelvic lymphadenopathy. Bones: Mild degenerative change of both hips. Hypertrophic facet arthropathy mid to lower lumbar spin e. Trace grade 1 anterolisthesis L4-L5. IMPRESSION: 1. MODERATE STOOL BURDEN, POSSIBLE CONSTIPATION. THERE IS SOLID STOOL DISTENDING THE RECTUM UP TO 6.1 CM WIDE. 2. NO EVIDENCE FOR BOWEL OBSTRUCTION. 3. A 9 MM RIGHT ADRENAL GLAND NODULE STATISTICALLY REPRESENTS A BENIGN ADRENAL ADENOMA. TWELVE-MONTH FOLLOW-UP CT TO REASSESS. 4. A 4.1 CM AND 1.7 CM CYST OF THE LEFT OVARY, POSSIBLE DOMINANT FOLLICLE/FUNCTIONAL CYSTS. FOLLOW-UP ULTRASOUND IN 6-8 WEEKS TO ENSURE INVOLUTION.
--- NOTE | 2020-06-11 12:21 | ED ---
Abdominal Pain HPI - General Chief Complaint: Abdominal Pain Stated Complaint: PCP Sent Poss GI issues Time Seen by Provider: 06/11/20 09:53 Source: patient, RN notes reviewed Mode of arrival: ambulatory Limitations: no limitations - History of Present Illness Initial Comments: 49-year-old female presents emergency Department with chief complaint of ongoing abdominal pain. Patient is has been worse over last 2-3 weeks. Patient was sent in by his PCP today after evaluation for concerns of possible obstruction. Patient states that she just felt constipated but states from straining she's had some bleeding noted. Patient denies any history of GI bleed she states it is bright red blood. Patient denies chest pain shortness breath fevers chills nausea no prior abdominal surgeries denies any chance . No dysuria no hematuria. - Related Data Home Medications Medication Instructions Recorded Confirmed ALPRAZolam [Xanax] 0.5 mg PO HS 06/24/18 06/11/20 DULoxetine HCL [Cymbalta] 60 mg PO HS 06/24/18 06/11/20 Aspirin EC [Ecotrin Low Dose] 81 mg PO DAILY 06/11/20 06/11/20 DULoxetine HCL [Cymbalta] 30 mg PO HS 06/11/20 06/11/20 Omeprazole 20 mg PO DAILY 06/11/20 06/11/20 Ondansetron [Zofran] 4 mg PO Q12HR PRN 06/11/20 06/11/20 Spironolact/Hydrochlorothiazid 1 tab PO DAILY 06/11/20 06/11/20 [Aldactazide 25-25 MG] Previous Rx's Medication Instructions Recorded Atorvastatin [Lipitor] 80 mg PO HS #30 tab 06/28/18 Metoprolol Tartrate [Lopressor] 25 mg PO BID #60 tab 06/28/18 Nitroglycerin Sl Tabs [Nitrostat] 0.4 mg SUBLINGUAL Q5M PRN #25 tab 06/28/18 Prasugrel [Effient] 10 mg PO DAILY #30 tab 06/28/18 Allergies Allergy/AdvReac Type Severity Reaction Status Date / Time No Known Allergies Allergy Verified 06/11/20 12:27 Review of Systems ROS Statement: Those systems with pertinent positive or pertinent negative responses have been documented in the HPI. ROS Other: All systems not noted in ROS Statement are negative. Past Medical History Past Medical History: Hyperlipidemia, Hypertension Additional Past Medical History / Comment(s): depression Last Myocardial Infarction Date:: t History of Any Multi-Drug Resistant Organisms: None Reported Past Surgical History: Heart Catheterization With Stent Past Anesthesia/Blood Transfusion Reactions: No Reported Reaction Date of Last Stent Placement:: 06/24/2018 Past Psychological History: Anxiety, Depression Smoking Status: Former smoker Past Alcohol Use History: None Reported Past Drug Use History: Marijuana - Past Family History Mother Family Medical History: Chest Pain / Angina, Myocardial Infarction ([place]) Sister(s) Family Medical History: Cancer General Exam Limitations: no limitations General appearance: alert, in no apparent distress Head exam: Present: atraumatic, normocephalic, normal inspection Eye exam: Present: normal appearance, PERRL, EOMI. Absent: scleral icterus, conjunctival injection, periorbital swelling ENT exam: Present: normal exam, normal oropharynx, mucous membranes moist Neck exam: Present: normal inspection, full ROM. Absent: tenderness, meningismus, lymphadenopathy Respiratory exam: Present: normal lung sounds bilaterally. Absent: respiratory distress, wheezes, rales, rhonchi, stridor Cardiovascular Exam: Present: regular rate, normal rhythm, normal heart sounds. Absent: systolic murmur, diastolic murmur, rubs, gallop, clicks GI/Abdominal exam: Present: soft, tenderness (Mild diffuse no localized), normal bowel sounds. Absent: distended, guarding, rebound, rigid Back exam: Absent: CVA tenderness (R), CVA tenderness (L) Neurological exam: Present: alert, oriented X3 Skin exam: Present: warm, dry, intact, normal color. Absent: rash Course Vital Signs 06/11/20 06/11/20 09:39 12:20 Temperature 98.1 F 97.9 F Pulse Rate 78 76 Respiratory 18 16 Rate Blood Pressure 123/85 120/82 O2 Sat by Pulse 98 98 Oximetry Medical Decision Making - Medical Decision Making CT shows evidence of dilated rectum with constipation. No other acute GI findings patient does have a left dominant follicle on her ovary no concerns for torsion. Patient lives reviewed mild leukocytosis otherwise unremarkable. - Lab Data Result diagrams: 06/11/20 10:41 06/11/20 10:41 Lab Results 06/11/20 06/11/20 06/11/20 Range/Units 10:41 10:41 10:41 WBC 17.3 H (3.8-10.6) k/uL RBC 5.12 (3.80-5.40) m/uL Hgb 15.0 (11.4-16.0) gm/dL Hct 46.7 H (34.0-46.0) % MCV 91.3 (80.0-100.0) fL MCH 29.4 (25.0-35.0) pg MCHC 32.2 (31.0-37.0) g/dL RDW 13.7 (11.5-15.5) % Plt Count 320 (150-450) k/uL MPV 7.2 Neutrophils % 81 % Lymphocytes % 13 % Monocytes % 4 % Eosinophils % 2 % Basophils % 0 % Neutrophils # 13.9 H (1.3-7.7) k/uL Lymphocytes # 2.2 (1.0-4.8) k/uL Monocytes # 0.6 (0-1.0) k/uL Eosinophils # 0.3 (0-0.7) k/uL Basophils # 0.1 (0-0.2) k/uL Sodium 137 (137-145) mmol/L Potassium 3.4 L (3.5-5.1) mmol/L Chloride 102 (98-107) mmol/L Carbon Dioxide 29 (22-30) mmol/L Anion Gap 6 mmol/L BUN 12 (7-17) mg/dL Creatinine 0.59 (0.52-1.04) mg/dL Est GFR (CKD-EPI)AfAm >90 (>60 ml/min/1.73 sqM) Est GFR (CKD-EPI)NonAf >90 (>60 ml/min/1.73 sqM) Glucose 117 H (74-99) mg/dL Plasma Lactic Acid Jeff 1.4 (0.7-2.0) mmol/L Calcium 9.4 (8.4-10.2) mg/dL Total Bilirubin 0.6 (0.2-1.3) mg/dL AST 27 (14-36) U/L ALT 33 (4-34) U/L Alkaline Phosphatase 48 (38-126) U/L Total Protein 7.1 (6.3-8.2) g/dL Albumin 4.2 (3.5-5.0) g/dL Amylase 58 (30-110) U/L Lipase 166 (23-300) U/L Urine Color Urine Appearance (Clear) Urine pH (5.0-8.0) Ur Specific Colver (1.001-1.035) Urine Protein (Negative) Urine Glucose (UA) (Negative) Urine Ketones (Negative) Urine Blood (Negative) Urine Nitrite (Negative) Urine Bilirubin (Negative) Urine Urobilinogen (<2.0) mg/dL Ur Leukocyte Esterase (Negative) Urine RBC (0-5) /hpf Urine WBC (0-5) /hpf Ur Squamous Epith Cells (0-4) /hpf Urine Mucus (None) /hpf 06/11/20 Range/Units 10:50 WBC (3.8-10.6) k/uL RBC (3.80-5.40) m/uL Hgb (11.4-16.0) gm/dL Hct (34.0-46.0) % MCV (80.0-100.0) fL MCH (25.0-35.0) pg MCHC (31.0-37.0) g/dL RDW (11.5-15.5) % Plt Count (150-450) k/uL MPV Neutrophils % % Lymphocytes % % Monocytes % % Eosinophils % % Basophils % % Neutrophils # (1.3-7.7) k/uL Lymphocytes # (1.0-4.8) k/uL Monocytes # (0-1.0) k/uL Eosinophils # (0-0.7) k/uL Basophils # (0-0.2) k/uL Sodium (137-145) mmol/L Potassium (3.5-5.1) mmol/L Chloride (98-107) mmol/L Carbon Dioxide (22-30) mmol/L Anion Gap mmol/L BUN (7-17) mg/dL Creatinine (0.52-1.04) mg/dL Est GFR (CKD-EPI)AfAm (>60 ml/min/1.73 sqM) Est GFR (CKD-EPI)NonAf (>60 ml/min/1.73 sqM) Glucose (74-99) mg/dL Plasma Lactic Acid Jeff (0.7-2.0) mmol/L Calcium (8.4-10.2) mg/dL Total Bilirubin (0.2-1.3) mg/dL AST (14-36) U/L ALT (4-34) U/L Alkaline Phosphatase (38-126) U/L Total Protein (6.3-8.2) g/dL Albumin (3.5-5.0) g/dL Amylase (30-110) U/L Lipase (23-300) U/L Urine Color Yellow Urine Appearance Cloudy H (Clear) Urine pH 7.0 (5.0-8.0) Ur Specific Colver 1.020 (1.001-1.035) Urine Protein Negative (Negative) Urine Glucose (UA) Negative (Negative) Urine Ketones Negative (Negative) Urine Blood Negative (Negative) Urine Nitrite Negative (Negative) Urine Bilirubin Negative (Negative) Urine Urobilinogen 2.0 (<2.0) mg/dL Ur Leukocyte Esterase Small H (Negative) Urine RBC 2 (0-5) /hpf Urine WBC 3 (0-5) /hpf Ur Squamous Epith Cells 2 (0-4) /hpf Urine Mucus Moderate H (None) /hpf Disposition Clinical Impression: Constipation Disposition: HOME SELF-CARE Condition: Stable Instructions (If sedation given, give patient instructions): Constipation (ED) Additional Instructions: Please return to the Emergency Department if symptoms worsen or any other concerns. Is patient prescribed a controlled substance at d/c from ED?: No Referrals: Thao Medrano MD [Primary Care Provider] - 1-2 days Time of Disposition: 12:54
[2020-06-11 13:12] VITALS: BP 103/80; PULSE 77; RESP 18; TEMP 98.7
== END 2020-06-11 13:11 | disposition home or self-care (01) ==
LOC: EC 09:33
DX: K59.00 Constipation, unspecified (principal); D72.829 Elevated white blood cell count, unspecified; F41.9 Anxiety disorder, unspecified; F32.9 Major depressive disorder, single episode, unspecified; I10 Essential (primary) hypertension; I25.2 Old myocardial infarction; Z79.82 Long term (current) use of aspirin; Z79.899 Other long term (current) drug therapy; Z87.891 Personal history of nicotine dependence; Z95.5 Presence of coronary angioplasty implant and graft
CPT/HCPCS: 36415; 80053; 82150; 83605; 83690; 85025; 81001; 74177; 99284; 96360; 96361; Q9967

== ENCOUNTER → 2020-08-27 | Outpatient (CLI) | payer BC ==
--- NOTE | 2020-08-28 08:53 | MM ---
Reason for exam: screening (asymptomatic). Last mammogram was performed 1 year and 11 months ago. History: Patient is nulliparous. Family history of premenopausal breast cancer in sister at age 40. Reductions of both breasts, 2005. Took hormonal contraceptives for 5 years beginning at age 19. Physical Findings: A clinical breast exam by your physician is recommended on an annual basis and results should be correlated with mammographic findings. MG 3D Screening Mammo W/Cad Bilateral CC and MLO view(s) were taken. Prior study comparison: October 02, 2018, bilateral MG screening mammo w CAD. August 24, 2016, bilateral MG screening mammo w CAD. There are scattered fibroglandular densities. No significant changes when compared with prior studies. ASSESSMENT: Benign, BI-RAD 2 RECOMMENDATION: Routine screening mammogram of both breasts in 1 year.
== END | disposition home or self-care (01) ==
LOC: RADMAMWWP 15:44
PROVIDERS: ATTEND Family Medicine
DX: Z12.31 Encounter for screening mammogram for malignant neoplasm of breast (principal); Z80.3 Family history of malignant neoplasm of breast
CPT/HCPCS: 77063; 77067

== ENCOUNTER → 2020-11-24 | Outpatient (CLI) | payer BC | END | disposition home or self-care (01) | LOC: LABWHC1 12:47 | PROVIDERS: ATTEND Psychiatry & Neurology Pain Medicine | DX: Z01.810 Encounter for preprocedural cardiovascular examination (principal) | CPT/HCPCS: 36415; 93005 ==

== ENCOUNTER → 2021-03-09 | Day surgery (SDC) | payer BC ==
[2021-03-04 12:40] VITALS: BMI 32.3
[~2021-03-09] MED LIST changes: -DEXAMETHASONE SOD PHOSPHATE 10 MG/ML 1 ML VIAL IV ONE; +DEXAMETHASONE SOD PHOSPHATE 4 MG/ML 1 ML VIAL IV ONE; -IBUPROFEN 200 MG TAB PO ONE; -KETOROLAC 30 MG/ML 1 ML VIAL ONE; +LACTATED RINGERS 1,000 ML IV ONE; +LIDOCAINE 1% (10MG/ML) FOR IV START INTRADERMA ONE; -LIDOCAINE 1% 20 ML VIAL (10MG/ML) FOR IV START INTRADERMA PRN; -LIDOCAINE 1% INJ 10MG/ML (20 ML MDV) ONE; -MIDAZOLAM 2 MG/2 ML VIAL IV PRN; -MIDAZOLAM 2 MG/2 ML VIAL ONE; -Pre Op ABX Message 1 EACH MISC MISCELLANE ONE; -SCOPOLAMINE 1.5MG/72HR PATCH TRANSDERM ONE; -SUCCINYLCHOLINE CHLORIDE 100 MG/5 ML SYR IV ONE; -fentaNYL (PF) 50 MCG/ML 2 ML AMP ONE
[2021-03-09 10:01] VITALS: RESP 16; TEMP 97.4
--- NOTE | 2021-03-09 10:57 | P.GSHP ---
History of Present Illness H&P Date: 03/09/21 Chief Complaint: Colon cancer screening 50-year-old here today for colonoscopy. Patient has not had 1 previously. No family history of colon cancer. No bowel complaints. Past Medical History Past Medical History: GERD/Reflux, Hyperlipidemia, Hypertension, Myocardial Infarction ([place]), Rheumatoid Arthritis ([place]) Additional Past Medical History / Comment(s): depression Last Myocardial Infarction Date:: 06/2018 History of Any Multi-Drug Resistant Organisms: None Reported Past Surgical History: Heart Catheterization With Stent Past Anesthesia/Blood Transfusion Reactions: Postoperative Nausea & Vomiting (PONV) Date of Last Stent Placement:: 06/24/2018 Smoking Status: Former smoker - Past Family History Mother Family Medical History: Chest Pain / Angina, Myocardial Infarction ([place]) Sister(s) Family Medical History: Cancer Medications and Allergies Home Medications Medication Instructions Recorded Confirmed Type ALPRAZolam [Xanax] 0.5 mg PO HS 06/24/18 03/09/21 History DULoxetine HCL [Cymbalta] 60 mg PO HS 06/24/18 03/09/21 History Atorvastatin [Lipitor] 80 mg PO HS #30 tab 06/28/18 03/09/21 Rx Metoprolol Tartrate [Lopressor] 25 mg PO BID #60 tab 06/28/18 03/09/21 Rx Nitroglycerin Sl Tabs [Nitrostat] 0.4 mg SUBLINGUAL Q5M PRN #25 tab 06/28/18 03/09/21 Rx Prasugrel [Effient] 10 mg PO DAILY #30 tab 06/28/18 03/04/21 Rx Aspirin EC [Ecotrin Low Dose] 81 mg PO DAILY 06/11/20 03/04/21 History DULoxetine HCL [Cymbalta] 30 mg PO DAILY 06/11/20 03/09/21 History Omeprazole 20 mg PO DAILY 06/11/20 03/09/21 History Ondansetron [Zofran] 4 mg PO DAILY 06/11/20 03/09/21 History Spironolact/Hydrochlorothiazid 1 tab PO DAILY 06/11/20 03/09/21 History [Aldactazide 25-25 MG] Allergies Allergy/AdvReac Type Severity Reaction Status Date / Time No Known Allergies Allergy Verified 03/09/21 10:10 Surgical - Exam Vital Signs Temp Pulse Resp BP Pulse Ox 97.4 F L 66 16 116/64 94 L 03/09/21 09:59 03/09/21 09:59 03/09/21 09:59 03/09/21 09:59 03/09/21 09:59 Physical exam: General: Well-developed, well-nourished HEENT: Normocephalic, sclerae nonicteric Abdomen: Nontender, nondistended Extremities: No edema Neuro: Alert and oriented Assessment and Plan (1) Colon cancer screening Narrative/Plan: Will proceed with colonoscopy Current Visit: Yes Status: Acute Code(s): Z12.11 - ENCOUNTER FOR SCREENING FOR MALIGNANT NEOPLASM OF COLON SNOMED Code(s): 487920418
--- NOTE | 2021-03-09 11:19 | P.PCN ---
Date of Procedure: 03/09/21 Procedure(s) Performed: PREOPERATIVE DIAGNOSIS: Colon cancer screening POSTOPERATIVE DIAGNOSIS: Normal exam PROCEDURE: Colonoscopy ANESTHESIA: MAC SURGEON: Deven Ott M.D. SPECIMENS: None ENDOSCOPIC PROCEDURE: The patient was placed on the endoscopy table in the left decubitus position. The Olympus colonoscope was inserted into the anus and passed under direct visualization to the base of the cecum. The appendiceal orifice was visualized. From that point the scope was slowly withdrawn inspecti ng all surfaces carefully. There were no neoplastic inflammatory or polypoid lesions throughout the cecum, ascending, transverse, descending, sigmoid and rectum. There was no visible diverticulosis noted. The patient's prep was slightly suboptimal. Digital rectal examination was normal. The patient was taken to the recovery room in stable condition per anesthesia guidelines. RECOMMENDATIONS: Resume diet. Follow colonoscopy 10 years.
[2021-03-09 11:39] VITALS: BP 121/82; PULSE 67
== END ==
LOC: ORWHC2ENDO 09:22
PROVIDERS: ATTEND Surgery
DX: Z12.11 Encounter for screening for malignant neoplasm of colon (principal); E78.5 Hyperlipidemia, unspecified; F32.9 Major depressive disorder, single episode, unspecified; I10 Essential (primary) hypertension; I25.2 Old myocardial infarction; K21.9 Gastro-esophageal reflux disease without esophagitis; M06.9 Rheumatoid arthritis, unspecified; F17.200 Nicotine dependence, unspecified, uncomplicated; Z79.82 Long term (current) use of aspirin; Z82.49 Family history of ischemic heart disease and other diseases of the circulatory system; Z87.891 Personal history of nicotine dependence
CPT/HCPCS: 81025; G0121; J2704

== ENCOUNTER → 2021-04-14 | Outpatient (CLI) | payer BC ==
--- NOTE | 2021-04-14 11:09 | MM ---
Reason for exam: clinical finding. Last mammogram was performed 8 months ago. History: Patient is nulliparous. Family history of premenopausal breast cancer in sister at age 40. Reductions of both breasts, 2005. Took hormonal contraceptives for 5 years beginning at age 19. Physical Findings: Nurse did not find any significant physical abnormalities on exam. MG 3D Diag Mammo W/Cad RT CC and MLO view(s) were taken of the right breast. Prior study comparison: August 27, 2020, bilateral MG 3d screening mammo w/cad. October 02, 2018, bilateral MG screening mammo w CAD. There are scattered fibroglandular densities. There is chronic nodularity in the right breast. No significant new findings when compared with previous films. These results were verbally communicated with the patient and result sheet given to the patient on 04/14/21. ASSESSMENT: Incomplete: need additional imaging evaluation, BI-RAD 0 RECOMMENDATION: Ultrasound of the right breast. (targeted to patient palpable)
--- NOTE | 2021-04-14 11:12 | USB ---
Reason for exam: additional evaluation requested from abnormal screening. History: Patient is nulliparous. Family history of premenopausal breast cancer in sister at age 40. Reductions of both breasts, 2005. Took hormonal contraceptives for 5 years beginning at age 19. US Breast Limited RT Right limited breast ultrasound including focal area of concern, retroareolar and axilla demonstrates no cystic or solid lesion seen. Scanned right axilla and surrounding area of patient concern. These results were verbally communicated with the patient and result sheet given to the patient on 04/14/21. ASSESSMENT: Negative, BI-RAD 1 RECOMMENDATION: Return to routine screening mammogram schedule for both breasts. Back on schedule for August 2021. Manage on a clinical basis with regard to any suspicious palpable area.
== END | disposition home or self-care (01) ==
LOC: RADMAMWWP 07:00
PROVIDERS: ATTEND Family Medicine
DX: R92.2 Inconclusive mammogram (principal); Z80.3 Family history of malignant neoplasm of breast
CPT/HCPCS: 77061; 77065

== ENCOUNTER → 2021-05-05 | Outpatient (CLI) | payer BC ==
--- NOTE | 2021-05-05 16:36 | US ---
EXAMINATION TYPE: US pelvic complete DATE OF EXAM: 05/05/2021 COMPARISON: 02/01/2019 CLINICAL HISTORY: R10.2 Female pelvic pain, N83.20 Ovarian cyst. no pain, known left ov cyst TECHNIQUE: TA. Transabdominal sonographic images of the pelvis were acquired Date of LMP: ablation 2 years ago EXAM MEASUREMENTS: Uterus: 9.7 x 6.7 x 5.2 cm Endometrial Stripe: unable to discern Right Ovary: not seen Left Ovary: 4.6 x 3.8 x 3.7 cm 1. Uterus: Anteverted wnl 2. Endometrium: wnl 3. Right Ovary: Obscured by overlying bowel gas 4. Left Ovary: 3.5 x 3.7 x 3.3cm cyst seen, noted on previous exam in 2019 5. Bilateral Adnexa: wnl 6. Posterior cul-de-sac: wnl IMPRESSION: Cystic lesion left ovary seen on prior study and essentially unchanged. Correlate clinically. No lesi on seen with certainty.
== END | disposition home or self-care (01) ==
LOC: RADUSWWP 16:01
PROVIDERS: ATTEND Family Medicine
DX: N83.202 Unspecified ovarian cyst, left side (principal)
CPT/HCPCS: 76856

== ENCOUNTER 2021-12-04 11:33 | Observation (INO) | payer BC ==
[2021-12-04] MEDS ORDERED: ONDANSETRON 4 MG/2 ML VIAL IVP STA (12:19)
[2021-12-04] MEDS ORDERED: MORPHINE SULFATE 2 MG/ML SYRINGE IVP STA (12:19)
[2021-12-04] MEDS ORDERED: SODIUM CHLORIDE 0.9% 1,000 ML IV STA (12:19)
--- NOTE | 2021-12-04 12:36 | ED ---
General Adult HPI - General Chief complaint: Nausea/Vomiting/Diarrhea Stated complaint: bloody diarrhea, dehydration Time Seen by Provider: 12/04/21 12:05 Source: patient, family, RN notes reviewed, old records reviewed Mode of arrival: wheelchair Limitations: no limitations - History of Present Illness Initial comments: 51-year-old female presenting with diarrhea over the past 2 days. Patient has had diarrhea over the past 48 hours after returning from [place]. She states diarrhea is bloody. She has had associated nausea without vomiting. She has generalized abdominal pain. Patient has not been able to tolerate oral liquids. - Related Data Home Medications Medication Instructions Recorded Confirmed ALPRAZolam [Xanax] 0.5 mg PO HS 06/24/18 03/09/21 DULoxetine HCL [Cymbalta] 60 mg PO HS 06/24/18 03/09/21 Aspirin EC [Ecotrin Low Dose] 81 mg PO DAILY 06/11/20 03/04/21 DULoxetine HCL [Cymbalta] 30 mg PO DAILY 06/11/20 03/09/21 Omeprazole 20 mg PO DAILY 06/11/20 03/09/21 Ondansetron [Zofran] 4 mg PO DAILY 06/11/20 03/09/21 Spironolact/Hydrochlorothiazid 1 tab PO DAILY 06/11/20 03/09/21 [Aldactazide 25-25 MG] Previous Rx's Medication Instructions Recorded Atorvastatin [Lipitor] 80 mg PO HS #30 tab 06/28/18 Metoprolol Tartrate [Lopressor] 25 mg PO BID #60 tab 06/28/18 Nitroglycerin Sl Tabs [Nitrostat] 0.4 mg SUBLINGUAL Q5M PRN #25 tab 06/28/18 Prasugrel [Effient] 10 mg PO DAILY #30 tab 06/28/18 Allergies Allergy/AdvReac Type Severity Reaction Status Date / Time No Known Allergies Allergy Verified 12/04/21 11:41 Review of Systems ROS Statement: Those systems with pertinent positive or pertinent negative responses have been documented in the HPI. ROS Other: All systems not noted in ROS Statement are negative. Past Medical History Past Medical History: GERD/Reflux, Hyperlipidemia, Hypertension, Myocardial Infarction (CT), Rheumatoid Arthritis ([place]) Additional Past Medical History / Comment(s): depression Last Myocardial Infarction Date:: 06/2018 History of Any Multi-Drug Resistant Organisms: None Reported Past Surgical History: Heart Catheterization With Stent Past Anesthesia/Blood Transfusion Reactions: Postoperative Nausea & Vomiting (PONV) Date of Last Stent Placement:: 06/24/2018 Past Psychological History: Depression Smoking Status: Former smoker - Past Family History Mother Family Medical History: Chest Pain / Angina, Myocardial Infarction (CT) Sister(s) Family Medical History: Cancer General Exam Limitations: no limitations General appearance: alert, in no apparent distress, appears intoxicated Head exam: Present: atraumatic, normocephalic Eye exam: Present: normal appearance, PERRL ENT exam: Present: mucous membranes dry Neck exam: Present: normal inspection. Absent: tenderness, meningismus Respiratory exam: Present: normal lung sounds bilaterally. Absent: respiratory distress, wheezes Cardiovascular Exam: Present: regular rate, normal rhythm GI/Abdominal exam: Present: soft. Absent: tenderness Extremities exam: Present: normal inspection, normal capillary refill. Absent: pedal edema, calf tenderness Neurological exam: Present: alert, oriented X3, CN II-XII intact. Absent: motor sensory deficit Skin exam: Present: diaphoretic Course Vital Signs 12/04/21 11:39 Temperature 97.7 F Pulse Rate 83 Respiratory 18 Rate Blood Pressure 115/80 O2 Sat by Pulse 97 Oximetry Medical Decision Making - Medical Decision Making 31-year-old female with diarrhea after travel to [place]. This is described as bloody and quite significant and frequency. She appears dehydrated. She is mildly diaphoretic she's had nausea without significant vomiting. Laboratory studies reveal normal CBC, CMP reveals a potassium at 2.6. She will require further collection White replacement and IV fluids. Additionally she is given a dose of Levaquin in the emergency department and potassium replacement. - Lab Data Result diagrams: 12/04/21 12:40 12/04/21 12:23 Lab Results 12/04/21 12/04/21 12/04/21 Range/Units 12:23 12:40 12:40 WBC 8.6 (3.8-10.6) k/uL RBC 5.00 (3.80-5.40) m/uL Hgb 15.8 (11.4-16.0) gm/dL Hct 45.8 (34.0-46.0) % MCV 91.6 (80.0-100.0) fL MCH 31.7 (25.0-35.0) pg MCHC 34.6 (31.0-37.0) g/dL RDW 12.9 (11.5-15.5) % Plt Count 203 (150-450) k/uL MPV 8.3 Neutrophils % 74 % Lymphocytes % 13 % Monocytes % 9 % Eosinophils % 1 % Basophils % 2 % Neutrophils # 6.4 (1.3-7.7) k/uL Lymphocytes # 1.1 (1.0-4.8) k/uL Monocytes # 0.7 (0-1.0) k/uL Eosinophils # 0.1 (0-0.7) k/uL Basophils # 0.1 (0-0.2) k/uL PT 11.2 (9.0-12.0) sec INR 1.0 (<1.2) APTT 24.0 (22.0-30.0) sec Sodium 136 L (137-145) mmol/L Potassium 2.6 L* (3.5-5.1) mmol/L Chloride 99 (98-107) mmol/L Carbon Dioxide 25 (22-30) mmol/L Anion Gap 12 mmol/L BUN 11 (7-17) mg/dL Creatinine 0.61 (0.52-1.04) mg/dL Est GFR (CKD-EPI)AfAm >90 (>60 ml/min/1.73 sqM) Est GFR (CKD-EPI)NonAf >90 (>60 ml/min/1.73 sqM) Glucose 106 H (74-99) mg/dL Plasma Lactic Acid Jeff (0.7-2.0) mmol/L Calcium 8.8 (8.4-10.2) mg/dL Total Bilirubin 0.5 (0.2-1.3) mg/dL AST 30 (14-36) U/L ALT 22 (4-34) U/L Alkaline Phosphatase 53 (38-126) U/L Total Protein 7.0 (6.3-8.2) g/dL Albumin 4.1 (3.5-5.0) g/dL Lipase 39 (23-300) U/L 12/04/21 Range/Units 12:40 WBC (3.8-10.6) k/uL RBC (3.80-5.40) m/uL Hgb (11.4-16.0) gm/dL Hct (34.0-46.0) % MCV (80.0-100.0) fL MCH (25.0-35.0) pg MCHC (31.0-37.0) g/dL RDW (11.5-15.5) % Plt Count (150-450) k/uL MPV Neutrophils % % Lymphocytes % % Monocytes % % Eosinophils % % Basophils % % Neutrophils # (1.3-7.7) k/uL Lymphocytes # (1.0-4.8) k/uL Monocytes # (0-1.0) k/uL Eosinophils # (0-0.7) k/uL Basophils # (0-0.2) k/uL PT (9.0-12.0) sec INR (<1.2) APTT (22.0-30.0) sec Sodium (137-145) mmol/L Potassium (3.5-5.1) mmol/L Chloride (98-107) mmol/L Carbon Dioxide (22-30) mmol/L Anion Gap mmol/L BUN (7-17) mg/dL Creatinine (0.52-1.04) mg/dL Est GFR (CKD-EPI)AfAm (>60 ml/min/1.73 sqM) Est GFR (CKD-EPI)NonAf (>60 ml/min/1.73 sqM) Glucose (74-99) mg/dL Plasma Lactic Acid Jeff 1.1 (0.7-2.0) mmol/L Calcium (8.4-10.2) mg/dL Total Bilirubin (0.2-1.3) mg/dL AST (14-36) U/L ALT (4-34) U/L Alkaline Phosphatase (38-126) U/L Total Protein (6.3-8.2) g/dL Albumin (3.5-5.0) g/dL Lipase (23-300) U/L Disposition Clinical Impression: Dehydration, Traveler's diarrhea, Hypokalemia Disposition: ADMITTED IP TO THIS [facility] Condition: Stable Is patient prescribed a controlled substance at d/c from ED?: No Referrals: None,Stated [REFERRING] - 1-2 days Time of Disposition: 14:06
[2021-12-04 12:55] LABS: Basophils # (A) 0.1 k/uL (0-0.2); Basophils % (A) 2 %; Eosinophils # (A) 0.1 k/uL (0-0.7); Eosinophils % (A) 1 %; HCT 45.8 % (34.0-46.0); HGB 15.8 gm/dL (11.4-16.0); Lymphocytes # (A) 1.1 k/uL (1.0-4.8); Lymphocytes % (A) 13 %; MCH 31.7 pg (25.0-35.0); MCHC 34.6 g/dL (31.0-37.0); MCV 91.6 fL (80.0-100.0); Mean Platelet Volume 8.3; Monocytes # (A) 0.7 k/uL (0-1.0); Monocytes % (A) 9 %; Neutrophils # (A) 6.4 k/uL (1.3-7.7); Neutrophils % (A) 74 %; Platelet Count 203 k/uL (150-450); RDW 12.9 % (11.5-15.5); WBC 8.6 k/uL (3.8-10.6)
[2021-12-04 13:31] LABS: Prothrombin Time 11.2 sec (9.0-12.0)
[2021-12-04 13:47] LABS: ALT 22 U/L (4-34); AST 30 U/L (14-36); African American GFR (CKD) >90 (>60 ml/min/1.73 sqM); Albumin 4.1 g/dL (3.5-5.0); Alkaline Phosphatase 53 U/L (38-126); Anion Gap 12 mmol/L; Blood Urea Nitrogen 11 mg/dL (7-17); Calcium 8.8 mg/dL (8.4-10.2); Carbon Dioxide 25 mmol/L (22-30); Chloride 99 mmol/L (98-107); Glucose 106 mg/dL (74-99); Lipase 39 U/L (23-300); Non-African American GFR(CKD) >90 (>60 ml/min/1.73 sqM); Sodium 136 mmol/L (137-145); Total Bilirubin 0.5 mg/dL (0.2-1.3)
[2021-12-04 13:55] LABS: Potassium 2.6 mmol/L (3.5-5.1)
[2021-12-04] MEDS ORDERED: LEVOFLOXACIN 250MG-D5W PMX 500 MG in DEXTROSE/WATER 1 50ML.BAG IVPB STA (13:57)
[2021-12-04] MEDS ORDERED: POTASSIUM CHLORIDE 10 MEQ in WATER FOR INJECTION 1 100ML.BAG IVPB SCH (14:00)
[2021-12-04] MEDS ORDERED: LEVOFLOXACIN 500MG-D5W PMX 500 MG in DEXTROSE/WATER 1 100ML.BAG IVPB STA (14:03)
[2021-12-04] MEDS ORDERED: HYDROmorphone 0.5 MG/0.5 ML SYRINGE IVP PRN (14:04)
[2021-12-04] MEDS ORDERED: NALOXONE 0.4 MG/ML 1 ML VIAL IV PRN ×2 (14:04→15:20)
[2021-12-04] MEDS ORDERED: D5-0.9% NACL WITH KCL 20 MEQ/L 1,000 ML IV ONE (14:30)
[2021-12-04] MEDS ORDERED: NITROGLYCERIN SL TABS 0.4 MG TAB SUBLINGUAL PRN (15:18)
[2021-12-04] MEDS ORDERED: ONDANSETRON 4 MG/2 ML VIAL IVP PRN (15:20)
[2021-12-04] MEDS ORDERED: MELATONIN 3 MG TABLET PO PRN (15:20)
--- NOTE | 2021-12-04 15:42 | P.HPIM ---
History of Present Illness H&P Date: 12/04/21 History of present illness: 51-year-old female with past medical history significant for coronary disease status post stent 2 on June 2018, hypertension, dyslipidemia. Patient presented to the emergency room with a chief complaint of abdominal pain with bloody diarrhea 36 hours. The patient traveling to [place] and she came back 24 hours ago. The patient reports significant diarrhea stool mixed with dark red blood 36 hours. Dysuria associated with abdominal pain in both bilateral lower abdominal quadrants. The patient denied any vomiting but she has nausea. Patient denies any chest pain or shortness of breath. Patient denies any fever but she has chills. Patient stated that she was traveling alone and she was drinking bottled water. Past medical history Coronary artery disease with history of STEMI on 06/24/2018 status post stent to LAD and the marginal branch Dyslipidemia Hypertension Restless leg syndrome Mixed Connective tissue disease Reformed smoker Lumbago with right-sided sciatica Obesity Chronic depression Insomnia ADD Review of system: All 14 review of systems evaluated and all negative except for above. Physical examination: General: non toxic, mild distress Derm: warm, dry Head: atraumatic, normocephalic, symmetric Eyes: EOMI, no lid lag, anicteric sclera Mouth: no lip lesion, mucus membranes moist Cardiovascular: S1S2 reg, no murmur, positive posterior tibial pulse bilateral, Lungs: CTA bilateral, no rhonchi, no rales , no accessory muscle use Abdominal: soft, tender bilateral lower quadrants without rebound tenderness or rigidity to palpation, no guarding, no appreciable organomegaly Ext: no gross muscle atrophy, no edema, no contractures Neuro: CN II-XI grossly intact, no focal neuro deficits Psych: Alert, oriented, appropriate affect Assessment and plan: #Abdominal pain with bloody diarrhea -Computed tomography scan of the abdomen is pending -Clear liquid diet -IV fluids -Flagyl 500 mg IV push 3 times a day -Pain control -Stool culture -Check stool for C. diff. -Check COVID 19 #Coronary disease status post stent to LAD and marginal branch in June 2018 -Patient denies any chest pain or shortness of breath -Resume beta jamila aspirin and statins and Prasugrel #Severe hypokalemia -Replaced #Dyslipidemia -Resume statins #Depression -Resume home medications #Obesity BMI 32 -Weight loss and exercises recommended #DVT prophylaxis -Patient ambulatory -SCDs only since patient has positive diarrhea Past Medical History Past Medical History: GERD/Reflux, Hyperlipidemia, Hypertension, Myocardial Infarction ([place]), Rheumatoid Arthritis ([place]) Additional Past Medical History / Comment(s): depression Last Myocardial Infarction Date:: 06/2018 History of Any Multi-Drug Resistant Organisms: None Reported Past Surgical History: Heart Catheterization With Stent Past Anesthesia/Blood Transfusion Reactions: Postoperative Nausea & Vomiting (PONV) Date of Last Stent Placement:: 06/24/2018 Past Psychological History: Depression Smoking Status: Former smoker - Past Family History Mother Family Medical History: Chest Pain / Angina, Myocardial Infarction ([place]) Sister(s) Family Medical History: Cancer Medications and Allergies Home Medications Medication Instructions Recorded Confirmed Type ALPRAZolam [Xanax] 0.5 mg PO HS 06/24/18 03/09/21 History DULoxetine HCL [Cymbalta] 60 mg PO HS 06/24/18 03/09/21 History Atorvastatin [Lipitor] 80 mg PO HS #30 tab 06/28/18 03/09/21 Rx Metoprolol Tartrate [Lopressor] 25 mg PO BID #60 tab 06/28/18 03/09/21 Rx Nitroglycerin Sl Tabs [Nitrostat] 0.4 mg SUBLINGUAL Q5M PRN #25 tab 06/28/18 03/09/21 Rx Prasugrel [Effient] 10 mg PO DAILY #30 tab 06/28/18 03/04/21 Rx Aspirin EC [Ecotrin Low Dose] 81 mg PO DAILY 06/11/20 03/04/21 History DULoxetine HCL [Cymbalta] 30 mg PO DAILY 06/11/20 03/09/21 History Omeprazole 20 mg PO DAILY 06/11/20 03/09/21 History Ondansetron [Zofran] 4 mg PO DAILY 06/11/20 03/09/21 History Spironolact/Hydrochlorothiazid 1 tab PO DAILY 06/11/20 03/09/21 History [Aldactazide 25-25 MG] Allergies Allergy/AdvReac Type Severity Reaction Status Date / Time No Known Allergies Allergy Verified 12/04/21 11:41 Physical Exam Vitals: Vital Signs Temp Pulse Resp BP Pulse Ox 12/04/21 11:39 97.7 F 83 18 115/80 97 Intake and Output 07/07/2712/04/21 12/04/21 06:59 14:59 22:59 Other: Weight 90.718 kg Results CBC & Chem 7: 12/04/21 12:40 12/04/21 12:23 Labs: Abnormal Lab Results - Last 24 Hours (Table) 12/04/21 Range/Units 12:23 Sodium 136 L (137-145) mmol/L Potassium 2.6 L* (3.5-5.1) mmol/L Glucose 106 H (74-99) mg/dL
--- NOTE | 2021-12-04 15:56 | CT ---
EXAMINATION TYPE: CT abdomen pelvis w con DATE OF EXAM: 12/04/2021 COMPARISON: 06/11/2020 HISTORY: abdominal pain, bloody diarrhea CT DLP: 1207.1 mGycm Automated exposure control for dose reduction was used. CONTRAST: Performed with IV Contrast, patient injected with 100 mL of Isovue 300. Images obtained from the diaphragm to the floor the pelvis with IV contrast. There is some mild subsegmental atelectasis at the lung bases. Heart size is normal. No pericardial e ffusion. No pleural effusion. Liver spleen and stomach pancreas gallbladder appear intact. The bile ducts are not dilated. There is no adrenal mass. Kidneys show satisfactory contrast opacification. There is no hydronephrosi s. Ureters are not dilated. There is no retroperitoneal adenopathy. The bladder distends smoothly. No inguinal hernia. No free fluid in the pelvis. Uterus is anteverted. No pelvic mass. There is no mesenteric edema. No ascites or free air. No sign of a bowel obstruction. No sign of thic kened appendix. There is some mild wall thickening of the transverse colon and the descending colon. The lumbar vertebrae have normal alignment. No compression fracture. Bony pelvis is intact. The hip j oints are intact. There is mild acetabular spurring. IMPRESSION: There is some wall thickening of the transverse and descending colon that appears new compared to old exam and suggestive of some nonspecific colitis. Appendix not seen.
[2021-12-04] MEDS ORDERED: metroNIDAZOLE-NS PMX 500 MG in SALINE 1 100ML.BAG IVPB SCH (16:00)
[2021-12-04] MEDS: PANTOPRAZOLE 40 MG/10 ML VIAL IVP SCH (16:41)
[2021-12-04] MEDS: SODIUM CHLORIDE 0.9% 1,000 ML IV SCH (16:42)
[2021-12-04] MEDS ORDERED: LEVOFLOXACIN 500MG-D5W PMX 500 MG in DEXTROSE/WATER 1 100ML.BAG IVPB ONE (18:00)
[2021-12-04] MEDS: metroNIDAZOLE-NS PMX 500 MG in SALINE 1 100ML.BAG IVPB SCH (18:43)
[2021-12-04] MEDS: POTASSIUM CHLORIDE 10 MEQ in WATER FOR INJECTION 1 100ML.BAG IVPB SCH ×4 (18:44→23:05)
[2021-12-04] MEDS: ATORVASTATIN 80 MG TAB PO SCH (20:02)
[2021-12-04] MEDS: METOPROLOL TARTRATE 25 MG TAB PO SCH (20:02)
[2021-12-04] MEDS: DULoxetine HCL 30 MG CAPSULE.DR PO SCH (20:02)
[2021-12-04] MEDS: MORPHINE SULFATE 4 MG/ML SYRINGE IVP PRN (20:06)
[2021-12-04] MEDS ORDERED: ALPRAZolam 0.25 MG TAB PO PRN (21:00)
[2021-12-04 23:21] LABS: Appearance,Urine Clear (Clear); Bilirubin,Urine Negative (Negative); Blood,Urine Moderate (Negative); Color,Urine Yellow; Glucose,Urine (UA) Negative (Negative); Hyaline Casts,Urine 1 /lpf (0-2); Ketones,Urine 2+ (Negative); Leukocyte Esterase,Urine Negative (Negative); Nitrite,Urine Negative (Negative); Protein,Urine Negative (Negative); RBC,Urine 2 /hpf (0-5); Squamous Epithelial Cell,Urine 1 /hpf (0-4); Urobilinogen,Urine <2.0 mg/dL (<2.0); WBC,Urine 4 /hpf (0-5)
[2021-12-05 00:26] LABS: African American GFR (CKD) >90 (>60 ml/min/1.73 sqM); Anion Gap 6 mmol/L; Blood Urea Nitrogen 6 mg/dL (7-17); Calcium 7.7 mg/dL (8.4-10.2); Carbon Dioxide 25 mmol/L (22-30); Chloride 105 mmol/L (98-107); Glucose 95 mg/dL (74-99); Non-African American GFR(CKD) >90 (>60 ml/min/1.73 sqM); Potassium 3.1 mmol/L (3.5-5.1); Sodium 136 mmol/L (137-145)
[2021-12-05] MEDS: metroNIDAZOLE-NS PMX 500 MG in SALINE 1 100ML.BAG IVPB SCH ×3 (01:46→17:10)
[2021-12-05] MEDS: MORPHINE SULFATE 4 MG/ML SYRINGE IVP PRN (03:03)
[2021-12-05] MEDS: SODIUM CHLORIDE 0.9% 1,000 ML IV SCH ×2 (05:34→12:31)
[2021-12-05] MEDS: D5-0.9% NACL WITH KCL 20 MEQ/L 1,000 ML IV SCH ×3 (05:35→18:35)
[2021-12-05] MEDS ORDERED: PANTOPRAZOLE 40 MG TABLET PO SCH (07:30)
[2021-12-05] MEDS ORDERED: POTASSIUM CHLORIDE 20 MEQ in WATER FOR INJECTION 1 100ML.BAG IVPB STA (07:35)
[2021-12-05] MEDS: PANTOPRAZOLE 40 MG/10 ML VIAL IVP SCH ×2 (09:13→19:51)
[2021-12-05] MEDS: ASPIRIN 81 MG PO SCH (09:19)
[2021-12-05] MEDS: DULoxetine HCL 60 MG CAPSULE.DR PO SCH (09:20)
[2021-12-05] MEDS: METOPROLOL TARTRATE 25 MG TAB PO SCH ×2 (09:20→19:51)
[2021-12-05] MEDS: PRASUGREL 10 MG TAB PO SCH (09:20)
--- NOTE | 2021-12-05 09:39 | P.PN ---
Subjective Progress Note Date: 12/05/21 History of Present Illness H&P Date: 12/04/21 History of present illness: 51-year-old female with past medical history significant for coronary disease status post stent 2 on June 2018, hypertension, dyslipidemia. Patient presented to the emergency room with a chief complaint of abdominal pain with bloody diarrhea 36 hours. The patient traveling to [place] and she came back 24 hours ago. The patient reports significant diarrhea stool mixed with dark red blood 36 hours. Dysuria associated with abdominal pain in both bilateral lower abdominal quadrants. The patient denied any vomiting but she has nausea. Patient denies any chest pain or shortness of breath. Patient denies any fever but she has chills. Patient stated that she was traveling alone and she was drinking bottled water. Past medical history Coronary artery disease with history of STEMI on 06/24/2018 status post stent to LAD and the marginal branch Dyslipidemia Hypertension Restless leg syndrome Mixed Connective tissue disease Reformed smoker Lumbago with right-sided sciatica Obesity Chronic depression Insomnia ADD Interval history: Patient was examined at the bedside. Patient still complains significant nausea and diarrhea. C. diff came back negative. The patient is complaining OF neck stiffness and headache. Infectious disease and neurology consulted for possible meningitis Physical examination: General: non toxic, mild distress Derm: warm, dry Head: atraumatic, normocephalic, symmetric Neck: Stiff with limited motion, nontender to palpation Eyes: EOMI, no lid lag, anicteric sclera Mouth: no lip lesion, mucus membranes moist Cardiovascular: S1S2 reg, no murmur, positive posterior tibial pulse bilateral, Lungs: CTA bilateral, no rhonchi, no rales , no accessory muscle use Abdominal: soft, tender bilateral lower quadrants without rebound tenderness or rigidity to palpation, no guarding, no appreciable organomegaly Ext: no gross muscle atrophy, no edema, no contractures Neuro: CN II-XI grossly intact, no focal neuro deficits Psych: Alert, oriented, appropriate affect Assessment and plan: #Abdominal pain with bloody diarrhea -Computed tomography scan of the abdomen showed mural thickening of the transverse and descending colon -Clear liquid diet -IV fluids -Flagyl 500 mg IV push 3 times a day -Pain control -Stool culture--pending -Ruled out COVID 19 infection and C. diff infection -Infectious disease service consulted #Intractable headache with neck stiffness -Need to rule out meningitis -ID and neurology service was consulted -Start Rocephin 2 g every 12 hours -Check CRP and sed rate -Lumbar puncture to be ordered by neurology #Coronary disease status post stent to LAD and marginal branch in June 2018 -Patient denies any chest pain or shortness of breath -Resume beta jamila aspirin and statins and Prasugrel #Severe hypokalemia -Replaced #Dyslipidemia -Resume statins #Depression -Resume home medications #Obesity BMI 32 -Weight loss and exercises recommended #Prediabetes -A1c 6.2 #DVT prophylaxis -Patient ambulatory -Subcutaneous heparin Patient be admitted to inpatient status the patient's primary care physician is covered by his [facility]. I spoke to Dr. Posey and he accepted the patient under his service Objective - Vital Signs Vital signs: Vital Signs Temp 97.9 F 12/05/21 07:00 Pulse 71 12/05/21 07:00 Resp 12 12/05/21 07:00 BP 120/74 12/05/21 07:00 Pulse Ox 99 12/05/21 07:00 FiO2 Intake & Output 12/04/21 12/05/21 12/05/21 18:59 06:59 18:59 Intake Total 240 1670 360 Balance 240 1670 360 Weight 90.718 kg 90.718 kg Intake: Intake, IV Titration 700 Amount Levofloxacin 500Mg-D5w 100 Pmx 500 mg In Dextrose/ Water 1 100ml.bag @ 100 mls/hr IVPB ONCE ONE Rx#: [id number] Potassium Chloride 10 meq 100 In Water For Injection 1 100ml.bag @ 100 mls/hr IVPB Q1HR [facility] Rx#: [id number] Potassium Chloride 10 meq 300 In Water For Injection 1 100ml.bag @ 100 mls/hr IVPB Q1HR [facility] Rx#: [id number] metroNIDAZOLE-NS PMX 500 200 mg In Saline 1 100ml.bag @ 100 mls/hr IVPB Q8H [facility] Rx#:[id number] Oral 240 970 360 Other: Voiding Method Toilet # Voids 2 # Bowel Movements 2 - Labs CBC & Chem 7: 12/04/21 12:40 12/04/21 23:47 Labs: Abnormal Lab Results - Last 24 Hours (Table) 12/04/21 12/04/21 12/04/21 Range/Units 12:23 12:40 17:14 Sodium 136 L (137-145) mmol/L Potassium 2.6 L* (3.5-5.1) mmol/L BUN (7-17) mg/dL Glucose 106 H (74-99) mg/dL Hemoglobin A1c 6.2 H (0.0-6.0) % Calcium (8.4-10.2) mg/dL Urine Ketones 2+ H (Negative) Urine Blood Moderate H (Negative) 12/04/21 Range/Units 23:47 Sodium 136 L (137-145) mmol/L Potassium 3.1 L (3.5-5.1) mmol/L BUN 6 L (7-17) mg/dL Glucose (74-99) mg/dL Hemoglobin A1c (0.0-6.0) % Calcium 7.7 L (8.4-10.2) mg/dL Urine Ketones (Negative) Urine Blood (Negative)
--- NOTE | 2021-12-05 09:59 | CT ---
EXAMINATION TYPE: CT brain wo con CT DLP: 999.8 mGycm, Automated exposure control for dose reduction was used. DATE OF EXAM: 12/05/2021 9:53 AM COMPARISON: None. CLINICAL INDICATION:Female, 51 years old with history of Intractable headache, dehydration TECHNIQUE: Brain: Multiple axial CT images of the brain were obtained without IV contrast. FINDINGS: Brain: Extra-axial spaces: No abnormal extra-axial fluid collections. Ventricular system: Within normal limits Cerebral parenchyma: No acute intraparenchymal hemorrhage or mass effect. The ventura-white junction is well differentiated. Cerebellum: Unremarkable. Mass effect: No evidence of midline shift. Intracranial vasculature: Atherosclerotic calcifications of the intracranial vessels. Soft tissues: Normal. Calvarium/osseous structures: No depressed skull fracture. Paranasal sinuses and mastoid air cells: Mild scattered paranasal sinus disease. Visualized orbits: Orbital contents are intact. IMPRESSION: No acute intracranial process.
[2021-12-05 10:07] LABS: HCT 38.2 % (37.2-46.3); HGB 12.5 g/dL (12.0-15.0); MCH 29.6 pg (27.0-32.0); MCHC 32.7 g/dL (32.0-37.0); MCV 90.5 fL (80.0-97.0); NRBC Per 100 WBC 0 /100 WBCS (0.0-0.0); Platelet Count 203 X 10*3/uL (140-440); RBC 4.22 X 10*6/uL (4.10-5.20); RDW 13.5 % (11.5-14.5); WBC 5.79 X 10*3/uL (4.50-10.00)
[2021-12-05 10:50] LABS: Basophils # (A) 0.03 X 10*3/uL (0.00-0.10); Basophils % (A) 0.5 %; Eosinophils # (A) 0.11 X 10*3/uL (0.04-0.35); Eosinophils % (A) 1.9 %; Immature Grans, Automated 0.2 %; Lymphocytes # (A) 1.32 X 10*3/uL (0.90-5.00); Lymphocytes % (A) 22.8 %; Monocytes # (A) 1.03 X 10*3/uL (0.20-1.00); Monocytes % (A) 17.8 %; Neutrophils # (A) 3.29 X 10*3/uL (1.80-7.70); Neutrophils % (A) 56.8 %; RBC Morphology NORMAL
[2021-12-05 11:41] LABS: African American GFR (CKD) 125.2 (60.0-200.0); BUN/Creat Ratio 8.04 Ratio (12.00-20.00); Blood Urea Nitrogen 4.4 mg/dL (9.0-27.0); Calcium 7.8 mg/dL (8.7-10.3); Carbon Dioxide 21.6 mmol/L (20.0-27.5); Potassium 3.2 mmol/L (3.5-5.5)
--- NOTE | 2021-12-05 14:03 | XR ---
EXAMINATION TYPE: XR chest 1V portable DATE OF EXAM: 12/05/2021 1:56 PM COMPARISON: Chest radiographs from 06/24/2018. TECHNIQUE: XR chest 1V portable Portable AP radiograph of the chest.. CLINICAL INDICATION:Female, 51 years old with history of chf; FINDINGS: Lungs/Pleura: There is no evidence of pleural effusion, focal consolidation, or pneumothorax. Pulmonary vascularity: Pulmonary vascular congestion. Heart/mediastinum: Cardiomediastinal silhouette is enlarged and stable. Musculoskeletal: No acute osseous pathology. IMPRESSION: Cardiomegaly and mild pulmonary vascular congestion. Correlate with BNP for congestive heart failure.
--- NOTE | 2021-12-05 14:33 | P.CONS ---
History of Present Illness - Reason for Consult Consult date: 12/05/21 - History of Present Illness on entering into the room the pt says she is done and wants to go home pt REFUSED evaluation by myself so consult was not done Past Medical History Past Medical History: GERD/Reflux, Hyperlipidemia, Hypertension, Myocardial Infarction ([place]), Rheumatoid Arthritis ([place]) Additional Past Medical History / Comment(s): depression Last Myocardial Infarction Date:: 06/2018 History of Any Multi-Drug Resistant Organisms: None Reported Past Surgical History: Heart Catheterization With Stent Past Anesthesia/Blood Transfusion Reactions: Postoperative Nausea & Vomiting (PONV) Date of Last Stent Placement:: 06/24/2018 Smoking Status: Former smoker - Past Family History Mother Family Medical History: Chest Pain / Angina, Myocardial Infarction ([place]) Sister(s) Family Medical History: Cancer Medications and Allergies Home Medications Medication Instructions Recorded Confirmed Type ALPRAZolam [Xanax] 0.25 mg PO HS PRN 06/24/18 12/04/21 History DULoxetine HCL [Cymbalta] 60 mg PO DAILY 06/24/18 12/04/21 History Atorvastatin [Lipitor] 80 mg PO HS #30 tab 06/28/18 12/04/21 Rx Metoprolol Tartrate [Lopressor] 25 mg PO BID #60 tab 06/28/18 12/04/21 Rx Prasugrel [Effient] 10 mg PO DAILY #30 tab 06/28/18 12/04/21 Rx Aspirin EC [Ecotrin Low Dose] 81 mg PO DAILY 06/11/20 12/04/21 History DULoxetine HCL [Cymbalta] 30 mg PO HS 06/11/20 12/04/21 History Omeprazole 20 mg PO DAILY 06/11/20 12/04/21 History Ondansetron [Zofran] 4 mg PO TID PRN 06/11/20 12/04/21 History Spironolact/Hydrochlorothiazid 1 tab PO DAILY 06/11/20 12/04/21 History [Aldactazide 25-25 MG] Ibuprofen [Motrin] 800 mg PO TID PRN 12/04/21 12/04/21 History Pregabalin [Lyrica] 100 mg PO BID 12/04/21 12/04/21 History Allergies Allergy/AdvReac Type Severity Reaction Status Date / Time No Known Allergies Allergy Verified 12/04/21 11:41 Physical Exam Vitals: Vital Signs Temp Pulse Pulse Resp BP BP Pulse Ox 12/05/21 13:32 97.9 F 88 14 131/79 97 12/05/21 08:00 71 12 12/05/21 07:00 97.9 F 71 12 120/74 99 12/05/21 02:00 97.9 F 73 16 111/70 96 12/04/21 20:00 98.5 F 73 16 110/61 99 12/04/21 17:03 97.9 F 72 12 102/51 99 12/04/21 16:41 98.6 F 78 18 128/80 100 Intake and Output 12/04/21 12/05/21 12/05/21 22:59 06:59 14:59 Intake Total 1125 785 360 Balance 1125 785 360 Intake: Intake, IV Titration 400 300 Amount Levofloxacin 500Mg-D5w 100 Pmx 500 mg In Dextrose/ Water 1 100ml.bag @ 100 mls/hr IVPB ONCE ONE Rx#: [id number] Potassium Chloride 10 meq 100 In Water For Injection 1 100ml.bag @ 100 mls/hr IVPB Q1HR [facility] Rx#: [id number] Potassium Chloride 10 meq 100 200 In Water For Injection 1 100ml.bag @ 100 mls/hr IVPB Q1HR [facility] Rx#: [id number] metroNIDAZOLE-NS PMX 500 100 100 mg In Saline 1 100ml.bag @ 100 mls/hr IVPB Q8H [facility] Rx#:[id number] Oral 725 485 360 Other: Voiding Method Toilet Toilet Toilet # Voids 2 2 2 # Bowel Movements 3 2 1 Weight 90.718 kg Results CBC & Chem 7: 12/05/21 05:51 12/05/21 05:51 Labs: Abnormal Lab Results - Last 24 Hours (Table) 12/04/21 12/04/21 12/04/21 Range/Units 12:23 12:40 17:14 Monocytes # (0.20-1.00) X 10*3/uL Sodium 136 L (137-145) mmol/L Potassium 2.6 L* (3.5-5.1) mmol/L BUN (7-17) mg/dL Creatinine (0.6-1.5) mg/dL BUN/Creatinine Ratio (12.00-20.00) Ratio Glucose 106 H (74-99) mg/dL Hemoglobin A1c 6.2 H (0.0-6.0) % Calcium (8.4-10.2) mg/dL Urine Ketones 2+ H (Negative) Urine Blood Moderate H (Negative) 12/04/21 12/05/21 12/05/21 Range/Units 23:47 05:51 05:51 Monocytes # 1.03 H (0.20-1.00) X 10*3/uL Sodium 136 L (137-145) mmol/L Potassium 3.1 L 3.2 L (3.5-5.1) mmol/L BUN 6 L 4.4 L (7-17) mg/dL Creatinine 0.5 L (0.6-1.5) mg/dL BUN/Creatinine Ratio 8.04 L (12.00-20.00) Ratio Glucose 117 H (74-99) mg/dL Hemoglobin A1c (0.0-6.0) % Calcium 7.7 L 7.8 L (8.4-10.2) mg/dL Urine Ketones (Negative) Urine Blood (Negative) Microbiology - Last 24 Hours (Table) 12/04/21 18:00 Stool Culture - Preliminary Stool
--- NOTE | 2021-12-05 14:44 | HP ---
HISTORY AND PHYSICAL CHIEF COMPLAINTS: Abdominal pain, diarrhea, nausea, vomiting and headache. HISTORY OF PRESENT ILLNESS: This 51-year-old woman with a past medical history of hypertension, hyperlipidemia, history of MCTD, history of rheumatoid arthritis, being followed by Dr. Sudhir Chapman, apparently just returned from [place] after spending two weeks which included trekking in [facility]. The patient was not feeling well in the airport, having some abdominal symptoms, feeling nauseated. Subsequently the patient had diarrhea which was apparently bloody and the patient also had nausea and vomiting. Patient also complained of neck pain. She was unable to keep anything down. The patient came to [facility] and was admitted for further evaluation and treatment. CT scan of the abdomen and pelvis showed nonspecific thickening in the transverse and descending colon. There is no history of any fever, rigors or chills. PAST MEDICAL HISTORY: History of MCTD, history of rheumatoid arthritis. MEDICATIONS: Current medications are reviewed, which include Rocephin. Doses and the rest of the medications are noted. ALLERGIES: NONE. FAMILY HISTORY: History of myocardial infarction in the family. SOCIAL HISTORY: Previous history of smoking. REVIEW OF SYSTEMS: Fourteen-point review of systems negative except as mentioned earlier. PHYSICAL EXAMINATION: Pulse is 71, blood pressure 120/74, respiration 12. HEENT: Conjunctivae normal. NECK: No jugular venous distention. CARDIOVASCULAR: S1, S2 muffled. RESPIRATION: Breath sounds diminished at the bases. Scattered rhonchi and crackles. ABDOMEN: Soft. Mild diffuse discomfort. No guarding. No rigidity. No mass palpable. LEGS: No edema. No swelling. NERVOUS SYSTEM: Higher functions as mentioned earlier. Moves all 4 limbs. No neck stiffness. Some tenderness in the neck muscles present. SKIN: No ulcer, rash, bleeding. JOINTS: No active deforming arthropathy. LABS: CBC noted. Sodium ntd, potassium 3.1. Calcium is 7.7. LFTs are normal. C difficile is negative. COVID is negative. ASSESSMENT: 1. Nausea, vomiting, diarrhea for evaluation. Rule out traveler's diarrhea or tropical illnesses. 2. Headache for evaluation. 3. MCTD. 4. Hypertension. 5. Hyperlipidemia. 6. Multiple medical issues. 7. Rheumatoid arthritis. RECOMMENDATIONS AND DISCUSSION: In this 51-year-old woman who presented with multiple complex medical issues, we will monitor the patient closely. Patient was started on empiric antibiotics. Will obtain the cultures. Infectious disease evaluation. I would also recommend blood and urine and stool cultures; stool for ova and parasite . Will obtain malaria cultures and also will evaluate for unusual infections, including and West Nile. Overall prognosis is guarded because of the multiple complex medical issues. See orders for further details. Discussed with the patient. Further recommendations to follow. A copy of this dictation is being forwarded to Dr. Chapman, who is the primary physician. MMGABRIELA / ETTAN: [id number] / ADWOA
--- NOTE | 2021-12-05 14:45 | P.CNNES ---
History of Present Illness Consult date: 12/05/21 Requesting physician: Ariela Mosquera Reason for Consult: headache and neck pain. Rule out meningitis History of Present Illness: This is a 51-year-old woman with medical history of mixed connective tissue disease, hypertension, coronary artery disease status post stent, dyslipidemia depression who presented to our emergency department because of diarrhea for the last 2 days. Neurology is consulted because a headache and neck pain and to rule out meningitis. Patient stated that the she was at [place] and was there for 9 days and return back this past Monday and has been having bloody diarrhea. She's been having nausea as well as vomiting. She denies of any focal weakness, numbness, any visual disturbance. Any speech difficulty. She states that she's having muscle stiffness in the entire and neck region that radiates up and the pain is a intermittent. She cannot tell me the duration. She denies any photophobia, phonophobia. Denies any fevers. She's been having chills. She denies any rash. She has been drinking bottled water. She denies eating any raw meat or fish. She feels she is having generalized pain. Some other workup in our facility during this hospital visit consisted of: Patient has been afebrile. White blood cell has been within the normal limits. CBC with differential is u nremarkable Potassium level was 2.6 on presentation. Hemoglobin A1c is 6.2. AST and ALT is within normal limits TSH is 4.350 Silvestre virus is are is nondetected C. diff is within normal limits CT of the head is reported as no acute intracranial process. I personally reviewed the CT the head and I agree with the report. Review of Systems Review of system: The 12 point system was reviewed and apparent positive and negative per HPI. Past Medical History Past Medical History: GERD/Reflux, Hyperlipidemia, Hypertension, Myocardial Infarction ([place]), Rheumatoid Arthritis ([place]) Additional Past Medical History / Comment(s): depression Last Myocardial Infarction Date:: 06/2018 History of Any Multi-Drug Resistant Organisms: None Reported Past Surgical History: Heart Catheterization With Stent Past Anesthesia/Blood Transfusion Reactions: Postoperative Nausea & Vomiting (PONV) Date of Last Stent Placement:: 06/24/2018 Smoking Status: Former smoker - Past Family History Mother Family Medical History: Chest Pain / Angina, Myocardial Infarction ([place]) Sister(s) Family Medical History: Cancer Medications and Allergies Home Medications Medication Instructions Recorded Confirmed Type ALPRAZolam [Xanax] 0.25 mg PO HS PRN 06/24/18 12/04/21 History DULoxetine HCL [Cymbalta] 60 mg PO DAILY 06/24/18 12/04/21 History Atorvastatin [Lipitor] 80 mg PO HS #30 tab 06/28/18 12/04/21 Rx Metoprolol Tartrate [Lopressor] 25 mg PO BID #60 tab 06/28/18 12/04/21 Rx Prasugrel [Effient] 10 mg PO DAILY #30 tab 06/28/18 12/04/21 Rx Aspirin EC [Ecotrin Low Dose] 81 mg PO DAILY 06/11/20 12/04/21 History DULoxetine HCL [Cymbalta] 30 mg PO HS 06/11/20 12/04/21 History Omeprazole 20 mg PO DAILY 06/11/20 12/04/21 History Ondansetron [Zofran] 4 mg PO TID PRN 06/11/20 12/04/21 History Spironolact/Hydrochlorothiazid 1 tab PO DAILY 06/11/20 12/04/21 History [Aldactazide 25-25 MG] Ibuprofen [Motrin] 800 mg PO TID PRN 12/04/21 12/04/21 History Pregabalin [Lyrica] 100 mg PO BID 12/04/21 12/04/21 History Allergies Allergy/AdvReac Type Severity Reaction Status Date / Time No Known Allergies Allergy Verified 12/04/21 11:41 Physical Examination - Vital Signs Vital Signs: Vital Signs Temp Pulse Pulse Resp BP BP Pulse Ox 12/05/21 13:32 97.9 F 88 14 131/79 97 12/05/21 08:00 71 12 12/05/21 07:00 97.9 F 71 12 120/74 99 12/05/21 02:00 97.9 F 73 16 111/70 96 12/04/21 20:00 98.5 F 73 16 110/61 99 12/04/21 17:03 97.9 F 72 12 102/51 99 12/04/21 16:41 98.6 F 78 18 128/80 100 Intake and Output 12/04/21 12/05/21 12/05/21 22:59 06:59 14:59 Intake Total 1125 785 360 Balance 1125 785 360 Intake: Intake, IV Titration 400 300 Amount Levofloxacin 500Mg-D5w 100 Pmx 500 mg In Dextrose/ Water 1 100ml.bag @ 100 mls/hr IVPB ONCE ONE Rx#: [id number] Potassium Chloride 10 meq 100 In Water For Injection 1 100ml.bag @ 100 mls/hr IVPB Q1HR [facility] Rx#: [id number] Potassium Chloride 10 meq 100 200 In Water For Injection 1 100ml.bag @ 100 mls/hr IVPB Q1HR [facility] Rx#: [id number] metroNIDAZOLE-NS PMX 500 100 100 mg In Saline 1 100ml.bag @ 100 mls/hr IVPB Q8H [facility] Rx#:[id number] Oral 725 485 360 Other: Voiding Method Toilet Toilet Toilet # Voids 2 2 2 # Bowel Movements 3 2 1 Weight 90.718 kg GENERAL: The patient is lying in bed and is in mild acute distress. HENT: Neck is supple. CHEST: The heart rate is regular rate rhythm. No murmurs to auscultation. LUNG: Clear to auscultation bilaterally no wheezing noted throughout. Not labored breathing. ABDOMEN/GI: Bowel sounds present in all 4 quadrants. No tenderness to palpation throughout. NEUROLOGICAL: Higher mental function: The patient is awake, alert, oriented to self, place and time. Patient is following commands. No aphasia and no neglect. Cranial nerves: The pupils are round, equal and reactive to light and accommodation. Visual morin are full to confrontation throughout. Extraocular movement is intact no nystagmus is noted. Facial sensation is normal to touch throughout. The facial strength is normal throughout. Hearing is normal bilaterally to hand rub. Tongue is midline and moved [id number] without any difficulty. No dysarthria is noted. Shoulder shrug is normal bilaterally. Motor: Gait is normal. 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 5 over 5 throughout. Normal tone and bulk. Cerebellum: Normal finger to nose heel to nayak bilaterally. Sensation: Sensation is normal to touch throughout. Reflexes (right/left): 2+ throughout. Plantars are downgoing bilaterally. Results - Laboratory Findings CBC and BMP: 12/05/21 05:51 12/05/21 05:51 Abnormal Lab Findings: Abnormal Labs 12/04/21 12/04/21 12/04/21 12:23 12:40 17:14 Monocytes # Sodium 136 L Potassium 2.6 L* BUN Creatinine BUN/Creatinine Ratio Glucose 106 H Hemoglobin A1c 6.2 H Calcium Urine Ketones 2+ H Urine Blood Moderate H 12/04/21 12/05/21 12/05/21 23:47 05:51 05:51 Monocytes # 1.03 H Sodium 136 L Potassium 3.1 L 3.2 L BUN 6 L 4.4 L Creatinine 0.5 L BUN/Creatinine Ratio 8.04 L Glucose 117 H Hemoglobin A1c Calcium 7.7 L 7.8 L Urine Ketones Urine Blood Assessment and Plan Assessment: Acute bloody Diarrhea with abdominal pain since coming back from [place] Neck pain and headache seems more myofascial. Possible due to muscle stiffness from dehydration. It does not seem like meningeal encephalitis should since no fever and no leukocytosis. Neck is supple. Hypokalemia due to acute diarrhea History of Coronary artery disease status post stent History of mixed connective tissue disease History of hypertension Chronic depression ADD Dyslipidemia Plan: Primary team ordered Lyme, ESR CRP, stool parasite, West Nile, typhoid titers Patient refused any further images and I recommended CT angiography of the head and neck but she refused. I notified her that my suspicion is low for meningoencpehalitis and does not want to proceed with a lumbar puncture. IDs consulted We'll defer the rest of the medical management to the primary team Patient stated that she was to be discharged home and will follow-up with her primary care physician as an outpatient. She does not want any further workup. Thank you for the consultation. The plan is discussed with the patient, her mother is at bedside and her nurse at. Since the patient is refusing workup is no further neurological workup needed. Neurology will sign off. Please reconsult if needed Edi Traylor M.D. Neuro-hospitalist Time with Patient: Greater than 30
[2021-12-05] MEDS ORDERED: KETOROLAC 15 MG/ML 1 ML VIAL IVP PRN (16:39)
[2021-12-05] MEDS ORDERED: POTASSIUM CHLORIDE ER 20 MEQ TAB.ER PO STA (16:49)
[2021-12-05] MEDS: ATORVASTATIN 80 MG TAB PO SCH (19:50)
[2021-12-05] MEDS: DULoxetine HCL 30 MG CAPSULE.DR PO SCH (19:50)
[2021-12-05] MEDS: HEPARIN SODIUM,PORCINE/PF 5,000 UNIT/0.5 ML SYRINGE SQ SCH (19:51)
[2021-12-05] MEDS: PREGABALIN 100 MG CAP PO SCH (19:51)
[2021-12-05] MEDS ORDERED: LEVOFLOXACIN 750MG-D5W PMX 750 MG in DEXTROSE/WATER 1 150ML.BAG IVPB SCH (20:00)
[2021-12-06] MEDS: metroNIDAZOLE-NS PMX 500 MG in SALINE 1 100ML.BAG IVPB SCH ×2 (02:46→09:15)
[2021-12-06] MEDS: SODIUM CHLORIDE 0.9% 1,000 ML IV SCH (04:18)
[2021-12-06] MEDS: D5-0.9% NACL WITH KCL 20 MEQ/L 1,000 ML IV SCH (04:19)
[2021-12-06 07:52] VITALS: BP 120/79; PULSE 68; RESP 18; TEMP 97.7
[2021-12-06] MEDS: METOPROLOL TARTRATE 25 MG TAB PO SCH (09:11)
[2021-12-06] MEDS: DULoxetine HCL 60 MG CAPSULE.DR PO SCH (09:11)
[2021-12-06] MEDS: ASPIRIN 81 MG PO SCH (09:11)
[2021-12-06] MEDS: PANTOPRAZOLE 40 MG/10 ML VIAL IVP SCH (09:12)
[2021-12-06] MEDS: PRASUGREL 10 MG TAB PO SCH (09:12)
[2021-12-06] MEDS: HEPARIN SODIUM,PORCINE/PF 5,000 UNIT/0.5 ML SYRINGE SQ SCH (09:13)
[2021-12-06] MEDS: PREGABALIN 100 MG CAP PO SCH (09:15)
[2021-12-06 09:25] LABS: HCT 36.6 % (37.2-46.3); HGB 12.4 g/dL (12.0-15.0); MCH 30.1 pg (27.0-32.0); MCHC 33.9 g/dL (32.0-37.0); MCV 88.8 fL (80.0-97.0); Mean Platelet Volume 10.8 fL (9.5-12.2); NRBC Per 100 WBC 0 /100 WBCS (0.0-0.0); Platelet Count 225 X 10*3/uL (140-440); RBC 4.12 X 10*6/uL (4.10-5.20); RDW 13.7 % (11.5-14.5); WBC 8.36 X 10*3/uL (4.50-10.00)
[2021-12-06 09:36] LABS: African American GFR (CKD) 126.4 (60.0-200.0); Albumin 3.3 g/dL (3.8-4.9); Albumin/Globulin Ratio 1.48 (1.60-3.17); Anion Gap 12.6 mmol/L (10.00-18.00); BUN/Creat Ratio 6.3 Ratio (12.00-20.00); Blood Urea Nitrogen 3.4 mg/dL (9.0-27.0); Calcium 8.4 mg/dL (8.7-10.3); Globulin 2.2 g/dL (1.6-3.3); Potassium 3.5 mmol/L (3.5-5.5); Total Bilirubin 0.3 mg/dL (0.30-1.20); Total Protein 5.5 g/dL (6.2-8.2)
[2021-12-06 10:17] LABS: Basophils # (A) 0.03 X 10*3/uL (0.00-0.10); Basophils % (A) 0.4 %; Eosinophils # (A) 0.17 X 10*3/uL (0.04-0.35); Immature Grans, Automated 0.5 %; Lymphocytes # (A) 1.85 X 10*3/uL (0.90-5.00); Lymphocytes % (A) 22.1 %; Monocytes # (A) 1.09 X 10*3/uL (0.20-1.00); Neutrophils # (A) 5.18 X 10*3/uL (1.80-7.70)
[2021-12-06 10:18] LABS: RBC Morphology NORMAL
[2021-12-07 13:18] LABS: Malarial Concentrated Smear None seen (None seen); Malarial Thin Smear None seen (None seen)
[2021-12-07 13:31] LABS: Lyme IgG/IgM 0.03 Index
--- NOTE | 2021-12-08 09:43 | P.DS ---
Providers Date of admission: 12/04/21 15:20 Expected date of discharge: 12/06/21 Attending physician: Billy Posey Consults: 12/05/21 09:05 Consult Physician Urgent Consulting Provider: Rula Arias Consult Reason/Comments: headache and neck pain possible meningitis Do you want consulting provider notified?: Yes 12/05/21 09:06 Consult Physician Routine Consulting Provider: Edi Traylor Consult Reason/Comments: headache and neck pain possible meningitis Do you want consulting provider notified?: Yes Primary care physician: Sudhir Chapman Hospital Course: Final diagnosis Nausea, vomiting, diarrhea for evaluation, rule out traveler's diarrhea or tropical illnesses Headache for evaluation MCTD Hypertension Hyperlipidemia rheumatoid arthritis Multiple medical issues Discharge disposition Patient left AGAINST MEDICAL ADVICE and paperwork was signed. Per nursing staff patient left with her sister who was a reported RN. Patient encouraged to follow-up with. Patient will follow-up with primary care provider Dr. Maryann Chapman in the outpatient setting upon discharge. Patient encouraged to stay although continued to want to leave and risk versus benefits of leaving AGAINST MEDICAL ADVICE were explained. Total time taken is greater than 35 minutes. Hospital course This is a 51-year-old female who was recently admitted with some abdominal pain along with nausea, vomiting, diarrhea and recent traveling to [place] and was being closely monitored. Neurological and infectious disease workup in progress and patient did not want any further workup and wanted to leave AGAINST MEDICAL ADVICE. Risks versus benefits were explained and patient signed the paperwork and left with her sister. Please refer to previous dictations along with infectious disease and neurology consultation for further HPI. Of note the stool culture is growing campylobacter jejuni ss jejune and a copy of this dictation will be sent to primary care provider Dr. Chapman. Please refer to medication reconciliation sheet for a list of medications. The impression and plan of care has been dictated by Teresa Mccarthy Nurse Mitchelt itioneronit as directed. Dr. Kalpesh MD I have performed a history and examination and MDM of this patient, discussed the same with the dictator, and agree with the dictator's assessment and plan as written ,documented as a scribe. Based on total visit time, I have performed more than 50% of the visit. Patient Condition at Discharge: Fair Plan - Discharge Summary Discharge Rx Participant: Yes New Discharge Prescriptions: No Action DULoxetine HCL [Cymbalta] 60 mg PO DAILY ALPRAZolam [Xanax] 0.25 mg PO HS PRN PRN Reason: Anxiety Atorvastatin [Lipitor] 80 mg PO HS #30 tab Metoprolol Tartrate [Lopressor] 25 mg PO BID #60 tab Prasugrel [Effient] 10 mg PO DAILY #30 tab Ondansetron [Zofran] 4 mg PO TID PRN PRN Reason: Nausea Omeprazole 20 mg PO DAILY DULoxetine HCL [Cymbalta] 30 mg PO HS Spironolact/Hydrochlorothiazid [Aldactazide 25-25 MG] 1 tab PO DAILY Aspirin EC [Ecotrin Low Dose] 81 mg PO DAILY Ibuprofen [Motrin] 800 mg PO TID PRN PRN Reason: Pain Pregabalin [Lyrica] 100 mg PO BID Discharge Medication List ALPRAZolam [Xanax] 0.25 mg PO HS PRN 06/24/18 [History] DULoxetine HCL [Cymbalta] 60 mg PO DAILY 06/24/18 [History] Atorvastatin [Lipitor] 80 mg PO HS #30 tab 06/28/18 [Rx] Metoprolol Tartrate [Lopressor] 25 mg PO BID #60 tab 06/28/18 [Rx] Prasugrel [Effient] 10 mg PO DAILY #30 tab 06/28/18 [Rx] Aspirin EC [Ecotrin Low Dose] 81 mg PO DAILY 06/11/20 [History] DULoxetine HCL [Cymbalta] 30 mg PO HS 06/11/20 [History] Omeprazole 20 mg PO DAILY 06/11/20 [History] Ondansetron [Zofran] 4 mg PO TID PRN 06/11/20 [History] Spironolact/Hydrochlorothiazid [Aldactazide 25-25 MG] 1 tab PO DAILY 06/11/20 [History] Ibuprofen [Motrin] 800 mg PO TID PRN 12/04/21 [History] Pregabalin [Lyrica] 100 mg PO BID 12/04/21 [History] Follow up Appointment(s)/Referral(s): None,Stated [REFERRING] - 1-2 days Discharge Disposition: Left Against Medical Advice
[2021-12-09 12:12] LABS: West Nile Virus IgM Antibody 0.87 INDEX (<0.90)
== END 2021-12-06 10:12 | disposition left against medical advice (07) ==
LOC: EC 11:33 → 6NMEDSUR 14:04 → INTOOBSV 15:20 → OBSVTOIN 15:20 → 6NMEDSUR 16:20 → UNDODISIN 12-06 10:12 → UNDODISOB 12-06 10:12
PROVIDERS: ADMIT Hospitalist; ATTEND Hospitalist
DX: R11.2 Nausea with vomiting, unspecified (principal); R19.7 Diarrhea, unspecified; R51.9 Headache, unspecified; R10.84 Generalized abdominal pain; K92.1 Melena; Z53.29 Procedure and treatment not carried out because of patient's decision for other reasons; I10 Essential (primary) hypertension; E78.5 Hyperlipidemia, unspecified; M06.9 Rheumatoid arthritis, unspecified; I25.10 Atherosclerotic heart disease of native coronary artery without angina pectoris; R30.0 Dysuria; I25.2 Old myocardial infarction; G25.81 Restless legs syndrome; M54.42 Lumbago with sciatica, left side; F32.A Depression, unspecified; M35.1 Other overlap syndromes; K21.9 Gastro-esophageal reflux disease without esophagitis; G47.00 Insomnia, unspecified; F90.9 Attention-deficit hyperactivity disorder, unspecified type; Z20.822 Contact with and (suspected) exposure to COVID-19; E87.6 Hypokalemia; Z87.891 Personal history of nicotine dependence; Z95.5 Presence of coronary angioplasty implant and graft; Z71.9 Counseling, unspecified; E66.9 Obesity, unspecified; Z68.32 Body mass index [BMI] 32.0-32.9, adult; R73.03 Prediabetes; R68.83 Chills (without fever); M43.6 Torticollis; E86.0 Dehydration; Z79.899 Other long term (current) drug therapy; Z79.82 Long term (current) use of aspirin; Z79.02 Long term (current) use of antithrombotics/antiplatelets; Z82.49 Family history of ischemic heart disease and other diseases of the circulatory system; Z80.9 Family history of malignant neoplasm, unspecified
CPT/HCPCS: 96376 ×2; 96361; 96365; 96366 ×3; 96367 ×2; 96375 ×2; 99285; 36415; 86768; 80053 ×2; 80048 ×2; 86757; 85652; 84443; 83605; 83690; 85025 ×3; 85610; 85730; 86140; 81001; 87040; 87207; 87324; 86789; 86788; 86618; 87086; 87045; 87046; 83036; 87635; 87662; 71045; 70450; 74177; G0378 ×3; J2270 ×3; J3480 ×2; J2405; J1956 ×2; J0696; J1885; C9113 ×2; J1170; Q9967

== ENCOUNTER → 2022-04-27 | Outpatient (CLI) | payer BC ==
--- NOTE | 2022-04-29 18:37 | MM ---
Reason for Exam: Screening (asymptomatic). Last mammogram was performed 1 year(s) and 8 month(s) ago. Patient History: Menarche at age 12. Patient has no children. Postmenopausal. Hormonal Contraceptives, starting at age 19 for 5 years. 2004, Bilateral Reduction. Sister had breast cancer, age 40. Risk Values: Nery 5 year model risk: 2.1%. NCI Lifetime model risk: 16.3%. Prior Study Comparison: 09/22/2008 Bilateral Diagnostic Mammogram, [facility]. 12/09/2009 Bilateral Screening Mammogram, [facility]. 01/14/2014 Screening Mammogram, [facility]. 08/14/2015 Bilateral Screening Mammogram, [facility]. 08/24/2016 Bilateral Screening Mammogram, [facility]. 10/02/2018 Bilateral Screening Mammogram, [facility]. 08/27/2020 Bilateral Screening Mammogram, [facility]. 04/14/2021 Right Diagnostic Mammogram, [facility]. 04/14/2021 Right Diagnostic Ultrasound, [facility]. Tissue Density: There are scattered fibroglandular densities. Findings: Analyzed By CAD. Areas of asymmetric density remain unchanged from multiple prior exams. No significant change is identified. Overall Assessment: Benign, BI-RAD 2 Management: Screening Mammogram of both breasts in 1 year. 1. Patient should continue monthly self breast exams. 2. A clinical breast exam by your physician is recommended on an annual basis. 3. This exam should not preclude additional follow-up of suspicious palpable abnormalities. Electronically signed and approved by: Maico Titus M.D. Radiologist
== END | disposition home or self-care (01) ==
LOC: RADMAMWWP 15:30
PROVIDERS: ATTEND Family Medicine
DX: Z12.39 Encounter for other screening for malignant neoplasm of breast (principal); Z78.0 Asymptomatic menopausal state; Z80.3 Family history of malignant neoplasm of breast
CPT/HCPCS: 77063; 77067

== ENCOUNTER → 2022-11-19 | Outpatient (CLI) | payer BC ==
[2022-11-19 13:42] LABS: ALT 49 U/L (8-44); AST 33 U/L (13-35); Chol/HDL Ratio 3.57 Ratio; LDL Cholesterol,Calculated 104.4 mg/dL (0.0-131.0)
== END | disposition home or self-care (01) ==
LOC: LABWHC1 08:10
PROVIDERS: ATTEND Internal Medicine Interventional Cardiology
DX: E78.2 Mixed hyperlipidemia (principal)
CPT/HCPCS: 36415; 80061; 84450; 84460

== ENCOUNTER → 2023-02-20 | Outpatient (CLI) | payer BC ==
--- NOTE | 2023-02-21 08:00 | XR ---
EXAMINATION TYPE: XR hand complete bilateral DATE OF EXAM: 02/20/2023 COMPARISON: NONE HISTORY: Pain TECHNIQUE: Three views are submitted of each hand. FINDINGS: The osseous structures are intact. There is mild narrowing of the first carpal metacarpal joint and i ts. No erosive changes. Mild first MCP joint arthropathy bilaterally. No acute fracture or dislocation. IMPRESSION: 1. Bilateral mild first carpal metacarpal joint and first MCP joint arthropathy.
== END | disposition home or self-care (01) ==
LOC: RADXRMAIN 17:56
PROVIDERS: ATTEND Nurse Practitioner Family
DX: M18.0 Bilateral primary osteoarthritis of first carpometacarpal joints (principal)

== ENCOUNTER → 2023-06-17 | Outpatient (CLI) | payer BC ==
[2023-06-17 13:54] LABS: HCT 49.1 % (37.2-46.3); HGB 16.2 g/dL (12.0-15.0); MCH 30.1 pg (27.0-32.0); MCV 91.1 FL (80.0-97.0); Mean Platelet Volume 10.4 FL (9.5-12.2); NRBC Per 100 WBC 0 X 10*3/uL (0.00-0.01); Platelet Count 277 X 10*3/uL (140-440); RBC 5.39 X 10*6/uL (4.10-5.20); RDW 14.7 % (11.5-14.5); WBC 10.97 X 10*3/uL (4.50-10.00)
[2023-06-17 14:06] LABS: Chol/HDL Ratio 2.69 Ratio
[2023-06-17 14:07] LABS: ALT 63 U/L (8-44); AST 40 U/L (13-35); Blood Urea Nitrogen 13.1 mg/dL (9.0-27.0); Carbon Dioxide 26.3 mmol/L (21.6-31.8); Chloride 103 mmol/L (96-109); LDL Cholesterol,Calculated 69.2 mg/dL (0.0-131.0); Potassium 4.4 mmol/L (3.5-5.5); Sodium 141 mmol/L (135-145)
== END | disposition home or self-care (01) ==
LOC: LABPAT 08:14
PROVIDERS: ATTEND Internal Medicine Interventional Cardiology
DX: Z01.812 Encounter for preprocedural laboratory examination (principal); I25.10 Atherosclerotic heart disease of native coronary artery without angina pectoris
CPT/HCPCS: 80051; 80061; 82565; 84450; 84460; 84520; 85027

== ENCOUNTER → 2023-06-17 | Outpatient (CLI) | payer BC | END | disposition home or self-care (01) | LOC: LABWHC1 08:16 | PROVIDERS: ATTEND Internal Medicine Interventional Cardiology | DX: Z53.9 Procedure and treatment not carried out, unspecified reason (principal) ==

== ENCOUNTER → 2023-07-22 | Outpatient (CLI) | payer BC ==
[2023-07-22 09:24] LABS: Basophils # (A) 0.1 k/uL (0-0.2); Basophils % (A) 1 %; Eosinophils # (A) 0.4 k/uL (0-0.7); Eosinophils % (A) 4 %; HCT 50.1 % (34.0-46.0); HGB 16.9 gm/dL (11.4-16.0); Lymphocytes # (A) 2.1 k/uL (1.0-4.8); Lymphocytes % (A) 19 %; MCHC 33.8 g/dL (31.0-37.0); MCV 91.7 fL (80.0-100.0); Mean Platelet Volume 8.1; Monocytes # (A) 0.5 k/uL (0-1.0); Monocytes % (A) 4 %; Neutrophils # (A) 8.1 k/uL (1.3-7.7); Neutrophils % (A) 71 %; Platelet Count 277 k/uL (150-450); RBC 5.46 m/uL (3.80-5.40); RDW 14.1 % (11.5-15.5); WBC 11.4 k/uL (3.8-10.6)
[2023-07-22 15:55] LABS: % Iron Saturation 27.14 (12.00-45.00); Iron 111 UG/DL (50-170); Testosterone <10.00 ng/dL (7.00-45.62); Total Iron Binding Capacity 409 UG/DL (228-460)
[2023-07-22 15:56] LABS: Ferritin 62.8 ng/mL (10.0-291.0)
== END | disposition home or self-care (01) ==
LOC: LABWHC1 08:21
PROVIDERS: ATTEND Family Medicine
DX: R71.8 Other abnormality of red blood cells (principal); R53.83 Other fatigue
CPT/HCPCS: 36415; 82306; 82607; 82728; 82746; 83540; 83550; 84403; 84439; 84443; 85025

== ENCOUNTER → 2023-10-11 | Outpatient (CLI) | payer BC ==
--- NOTE | 2023-10-13 10:31 | MM ---
Reason for Exam: Screening (asymptomatic). Last mammogram was performed 1 year(s) and 6 month(s) ago. Patient History: Menarche at age 12. Patient has no children. Postmenopausal. Hormonal Contraceptives, starting at age 19 for 5 years. 2004, Bilateral Reduction. Sister had breast cancer, age 40. Risk Values: Nery 5 year model risk: 2.2%. NCI Lifetime model risk: 16.1%. Prior Study Comparison: 08/27/2020 Bilateral Screening Mammogram, [facility]. 04/14/2021 Right Diagnostic Mammogram, [facility]. 04/27/2022 Bilateral MG 3D screening mammo w/cad, [facility]. Tissue Density: There are scattered areas of fibroglandular density. Findings: Analyzed By CAD. There is no suspicious group of microcalcifications or new suspicious mass in either breast. Benign-appearing calcifications. Overall Assessment: Benign, BI-RAD 2 Management: Screening Mammogram of both breasts in 1 year. . Patient should continue monthly self-breast exams. A clinical breast exam by your physician is recommended on an annual basis. This exam should not preclude additional follow-up of suspicious palpable abnormalities. Note on Nery scores and lifetime risk: 1. A Nery score greater than 3% is considered moderate risk. If this is the case, consider specialist referral to assess eligibility for a risk reducing agent. 2. If overall lifetime risk for the development of breast cancer is 20% or higher, the patient may qualify for future screening with alternating mammogram and breast MRI. Electronically signed and approved by: Alhaji Amin M.D. Radiologis
== END | disposition home or self-care (01) ==
LOC: RADMAMWWP 11:27
PROVIDERS: ATTEND Family Medicine
DX: Z12.31 Encounter for screening mammogram for malignant neoplasm of breast (principal); Z78.0 Asymptomatic menopausal state; Z80.3 Family history of malignant neoplasm of breast
CPT/HCPCS: 77063; 77067

== ENCOUNTER → 2024-03-14 | Outpatient (CLI) | payer BC ==
--- NOTE | 2024-03-25 09:24 | NM ---
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 Planar imaging was perfo rmed approximately 1 hour post injection and 3 hour post injection, including anterior and lateral. Whole body and SPECT imaging was performed approximately 3 hours post injection. FINDINGS: There is no myocardial uptake seen in normal bone uptake noted compatible with grade 0 uptake. H/CL ratio at one hour is 1.19 with normal being equal to or less than 1.5. At 3 hours the ratio is 1.02 with normal being less than or equal to 1.3. IMPRESSION: No significant uptake within the myocardium to suggest amyloidosis. [facility], , 03/25/2024 9:21 AM
== END | disposition home or self-care (01) ==
LOC: RADNMMAIN 09:34
PROVIDERS: ATTEND Internal Medicine Interventional Cardiology
DX: E85.4 Organ-limited amyloidosis
CPT/HCPCS: 78803

== ENCOUNTER → 2024-03-21 | Outpatient (CLI) | payer BC ==
[2024-03-21 10:34] LABS: Basophils # (A) 0.07 X 10*3/uL (0.00-0.10); Basophils % (A) 0.7 %; Eosinophils # (A) 0.91 X 10*3/uL (0.04-0.35); Eosinophils % (A) 8.5 %; HCT 50.2 % (37.2-46.3); HGB 16.4 g/dL (12.0-15.0); Lymphocytes # (A) 3.04 X 10*3/uL (0.90-5.00); Lymphocytes % (A) 28.3 %; MCH 30.1 pg (27.0-32.0); MCHC 32.7 g/dL (32.0-37.0); MCV 92.3 FL (80.0-97.0); Mean Platelet Volume 11.1 FL (9.5-12.2); Monocytes # (A) 0.69 X 10*3/uL (0.20-1.00); Monocytes % (A) 6.4 %; NRBC Per 100 WBC 0 X 10*3/uL (0.00-0.01); Neutrophils % (A) 55.9 %; Platelet Count 266 X 10*3/uL (140-440); RBC 5.44 X 10*6/uL (4.10-5.20); RDW 14.1 % (11.5-14.5); WBC 10.73 X 10*3/uL (4.50-10.00)
[2024-03-21 11:02] LABS: Chol/HDL Ratio 2.94 Ratio; LDL Cholesterol,Calculated 74.7 mg/dL (0.0-131.0)
[2024-03-21 11:39] LABS: ALT 51 U/L (8-44); AST 42 U/L (13-35); Albumin 4.4 g/dL (3.8-4.9); Albumin/Globulin Ratio 1.63 Ratio (1.60-3.17); Alkaline Phosphatase 63 U/L (41-126); BUN/Creat Ratio 17.25 Ratio (12.00-20.00); Blood Urea Nitrogen 13.8 mg/dL (9.0-27.0); Calcium 9.7 mg/dL (8.7-10.3); Carbon Dioxide 28.1 mmol/L (21.6-31.8); Chloride 102 mmol/L (96-109); Globulin 2.7 g/dL (1.6-3.3); Glucose 112 mg/dL (70-110); Potassium 4.7 mmol/L (3.5-5.5); Sodium 141 mmol/L (135-145); Total Bilirubin 0.4 mg/dL (0.3-1.2); Total Protein 7.1 g/dL (6.2-8.2)
== END | disposition home or self-care (01) ==
LOC: LABWHC1 07:22
PROVIDERS: ATTEND Nurse Practitioner Family
CPT/HCPCS: 36415; 80053; 80061; 82533; 84443; 84481; 85025